=== PATIENT | female | born 1960 | race Caucasian/White ===

== ENCOUNTER 2016-05-09 16:53 | Emergency (ER) | payer SELFPAY ==
[~2016-05-09 16:53] MED LIST: ACET10DR4 OT; AMOX1TAB61 PO; BENZ100C PO; EZET1TAB4 PO; FURO20TA3 PO; GABA600T PO; HYDR-971 PO; METF500T4 PO; NORT25CA PO; NYST15CR2 TP; SULF1TAB3 PO; hydrocodone
--- NOTE | 2016-05-09 18:10 | PHYS DOC ---
Past Medical History Past Medical History: Asthma, Bronchitis, Diabetes-Type II Additional Past Medical Histor: CRONIC PAIN - BACK SURGERY 2003 Past Surgical History: Hysterectomy Additional Past Surgical Histo: ABDOMINAL HERNIA REPAIR, EYE SURGERY (CROSS- EYED), CARPAL TUNNEL RELEASE: R Alcohol Use: None Drug Use: None Adult General Chief Complaint Chief Complaint: MECHANICAL FALL HPI HPI Patient is a 56 year old female who presents with low back, right hip and right leg pain after fall. 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 Patient states she initially had low back and right hip pain. Fall occurred at 1345. Patient states approximately 2 hours prior to arrival pain started to increase in severity and radiates down the back of her right leg to her knee. She denies any history of past back hip or leg pain. Patient states past medical history is diabetes. Review of Systems Review of Systems Constitutional: Denies fever or chills Eyes: Denies change in visual acuity, redness, or eye pain HENT: Denies nasal congestion or sore throat Respiratory: Denies cough or shortness of breath Cardiovascular: No chest pain or palpitations GI: Denies abdominal pain, nausea, vomiting, bloody stools or diarrhea : Denies dysuria or hematuria Musculoskeletal: Lumbar back, right hip and right thigh pain Integument: Denies rash or skin lesions Neurologic: Denies headache, focal weakness or sensory changes Endocrine: Denies polyuria or polydipsia Current Medications Current Medications Current Medications Medications (Trade) Dose Ordered Sig/Dolly Start Time Stop Time Status Last Admin Dose Admin Ketorolac Tromethamine (Toradol) 30 mg 1X ONCE 05/09/16 18:15 05/09/16 18:16 DC 05/09/16 18:15 30 MG Allergies Allergies Allergies Coded Allergies Type Severity Reaction Last Updated Verified No Known Drug Allergies 03/16/13 No Physical Exam Physical Exam Constitutional: Well developed, well nourished, moderate acute distress, non- toxic appearance. HENT: Normocephalic, atraumatic, oropharynx moist, no oral exudates, nose normal. Eyes: PERRLA, EOMI, conjunctiva normal, no discharge. Neck: Normal range of motion, no tenderness, supple, no stridor. Cardiovascular:Heart rate regular rhythm, no murmur Lungs & Thorax: Bilateral breath sounds clear to auscultation Abdomen: Bowel sounds normal, soft, no tenderness, no masses, no pulsatile masses. Skin: Warm, dry, no erythema, no rash. Back: L2 through L4 midline spinous process tenderness with palpation, no CVA tenderness. Extremities: Right hip lateral tenderness, no cyanosis, no clubbing, ROM intact , no edema. Right lateral collateral ligament tenderness, Neurologic: Alert and oriented X 3, normal motor function, normal sensory function, no focal deficits noted. Psychologic: Affect normal, judgement normal, mood normal. Current Patient Data Vital Signs Vital Signs Date Time Temp Pulse Resp B/P Pulse Ox O2 Delivery O2 Flow Rate FiO2 05/09/16 19:14 61 18 136/79 97 Room Air 05/09/16 18:08 98.1 98.1 EKG EKG [] Radiology/Procedures Radiology/Procedures [] Impressions: X-rays of lumbar spine right hip and pelvis were interpreted by myself as being negative. Course & Med Decision Making Course & Med Decision Making Pertinent Labs and Imaging studies reviewed. (See chart for details) [] Dragon Disclaimer Dragon Disclaimer This electronic medical record was generated, in whole or in part, using a voice recognition dictation system. Departure Departure Impression: Primary Impression: Lumbar back pain with radiculopathy affecting right lower extremity Additional Impression: Sprain of lateral collateral ligament of right knee, initial encounter Disposition: 01 HOME, SELF-CARE Condition: IMPROVED Referrals: IVONE REED PA-C (PCP) Patient Instructions: Back Pain, Adult, [id number], Lateral Collateral Knee Ligament Sprain with Phase I Rehab-[facility] Scripts Hydrocodone/Acetaminophen (Lortab 5-325 mg Tablet)1 Each Tablet1 Tab PO PRN Q4- 6HRS PRN PAIN #20 TAB Ref 0 Prov:FRANCISCO JAVIER ZAMUDIO MD 05/09/16 Problem Qualifiers FRANCISCO JAVIER ZAMUDIO MD May 09, 2016 18:10
[2016-05-09] MEDS ORDERED: KETOROLAC TROMETHAMINE 30 MG/ML SYRINGE. IV ONE (18:15)
[2016-05-09] MEDS ORDERED: HYDR-2678 PO (18:55)
[2016-05-09 19:14] VITALS: BP 136/79
--- NOTE | 2016-05-10 13:14 | RAD ---
AP and lateral right hip radiographs to include an AP radiograph of the pelvis 05/09/2016 Clinical history: Right hip pain post fall. An AP digital radiograph of the pelvis to include both hips was obtained. AP and lateral digital radiographs of the right hip were obtained. No pelvic bone fracture is seen. Both hips are intact. Specifically no fracture or dislocation of the right hip is seen. Calcifications are seen within the pelvis consistent with phleboliths. Mild to moderate degenerative changes are seen involving the lower lumbar spine and both SI joints along with both hips. Impression: No acute fracture or dislocation of the right hip is seen.
--- NOTE | 2016-05-10 13:16 | RAD ---
Three-view lumbar spine radiographs 05/09/2016 Clinical history: Mid and low back pain after fall. AP and 2 lateral digital radiographs of the lumbar spine were obtained. There is diffuse osteopenia of the visualized bony structures. Very mild S-shaped curvature of the thoracolumbar spine is seen. No fracture or subluxation of the lumbar vertebrae is noted. Degenerative changes are seen involving the lower thoracic and throughout the lumbar disc spaces consisting of varying degrees of disc space narrowing, vertebral endplate sclerosis and minimal to mild anterior and posterior vertebral body osteophyte formation. Degenerative changes are seen involving the facet joints of the lower lumbar spine. Impression: No fracture or subluxation of the lumbar vertebrae is seen.
== END 2016-05-09 19:27 | disposition home or self-care (01) ==
LOC: ER 16:53
DX: S83.91XA Sprain of unspecified site of right knee, initial encounter (principal); M54.16 Radiculopathy, lumbar region; M25.551 Pain in right hip; E11.9 Type 2 diabetes mellitus without complications; J45.909 Unspecified asthma, uncomplicated; G89.29 Other chronic pain; W18.39XA Other fall on same level, initial encounter; Y93.F2 Activity, caregiving, lifting; Y92.89 Other specified places as the place of occurrence of the external cause; Y99.8 Other external cause status
CPT/HCPCS: 72100; 73502; 96374; 99284; J1885

== ENCOUNTER 2016-05-16 20:51 | Inpatient (IN) | payer SELFPAY ==
[~2016-05-16] VITALS: Ht 165.1 cm; Wt 110.8 kg
[~2016-05-16 20:51] MED LIST changes: +HYDR-2678 PO
[2016-05-16 21:56] LABS: OBC FLU VALID
[2016-05-16] MEDS ORDERED: IPRATRPIUM/ALBUTEROL 0.5/2.5MG 3 ML NEBU. NEB ONE (22:00)
[2016-05-16] MEDS ORDERED: methylPREDNISolone SOD SUCC PF 125 MG/2 ML VIAL. IV ONE (23:15)
--- NOTE | 2016-05-16 23:17 | PHYS DOC ---
Past Medical History Past Medical History: Asthma, Bronchitis, Diabetes-Type II, High Cholesterol Additional Past Medical Histor: CRONIC PAIN - BACK SURGERY 2003 Past Surgical History: Hysterectomy Additional Past Surgical Histo: ABDOMINAL HERNIA REPAIR, EYE SURGERY (CROSS- EYED), CARPAL TUNNEL RELEASE: R Smoking: Less than 1pk/day Alcohol Use: None Drug Use: None Adult General Chief Complaint Chief Complaint: FLU SYMPTOM HPI HPI Patient is a 56 year old female who presents with nonproductive cough and fever starting today. She's had a temperature up to 101.7F at home. She reports difficulty breathing. She has nasal congestion and sore throat. She's had posttussive emesis without nausea or abdominal pain. She states that she feels very tired and has slept most of the day today. She did not receive a flu shot this year. She denies any known sick contacts. She is a smoker. She has an inhaler at home but no nebulizer machine or home oxygen. She last took Tylenol at 1900. She sees a PCP at [facility]. Review of Systems Review of Systems Constitutional: Reports fever. Eyes: Denies change in visual acuity, redness, or eye pain. [] HENT: Denies ear pain. Reports nasal congestion and sore throat. Respiratory: Reports cough and shortness of breath. Cardiovascular: Denies chest pain, palpitations or edema. [] GI: Denies abdominal pain, nausea, bloody stools or diarrhea. Reports posttussive emesis. : Denies dysuria, hematuria or urinary frequency. [] Musculoskeletal: Denies back pain or joint pain. [] Integument: Denies rash or skin lesions. [] Neurologic: Denies headache, focal weakness or sensory changes. [] Endocrine: Denies polyuria or polydipsia. [] Psych: Denies anxiety or depression. [] All systems reviewed and negative unless otherwise stated in the HPI. Current Medications Current Medications Current Medications Medications (Trade) Dose Ordered Sig/Dolly Start Time Stop Time Status Last Admin Dose Admin Albuterol/ Ipratropium (Duoneb) 3 ml RTQID 05/17/16 08:00 05/18/16 07:59 Guaifenesin (Robitussin) 200 mg PRN Q4HRS PRN 05/16/16 23:00 Levofloxacin/ Dextrose (LEVAQUIN 500mg PREMIX) 100 ml @ 100 mls/hr 1X ONCE 05/16/16 23:15 05/17/16 00:14 Methylprednisolone Sodium Succinate 125 mg 125 mg 1X ONCE 05/16/16 23:15 05/16/16 23:16 Allergies Allergies Allergies Coded Allergies Type Severity Reaction Last Updated Verified No Known Drug Allergies 03/16/13 No Physical Exam Physical Exam Constitutional: Well developed, well nourished, no acute distress, non-toxic appearance. [] HENT: Normocephalic, atraumatic, bilateral external ears normal, oropharynx moist, no oral exudates, nose normal. Bilateral TMs without erythema or bulging. There is mild posterior pharyngeal erythema without tonsillar edema. Eyes: PERRLA, EOMI, conjunctiva normal, no discharge. [] Neck: Normal range of motion, no tenderness, supple, no stridor. [] Cardiovascular: Heart rate regular rhythm, no murmur [] Lungs & Thorax: No respiratory distress. There are expiratory wheezes heard throughout all lung loera. Skin: Warm, dry, no erythema, no rash. [] Neurologic: Alert and oriented X 3, normal motor function, normal sensory function, no focal deficits noted. [] Psychologic: Affect normal, judgement normal, mood normal. [] Current Patient Data Vital Signs Vital Signs Date Time Temp Pulse Resp B/P Pulse Ox O2 Delivery O2 Flow Rate FiO2 05/16/16 22:34 93 Nasal Cannula 2.5 05/16/16 21:19 100.6 97 22 100.6 Lab Values Laboratory Tests Test 05/16/16 21:15 Influenza Type A Antigen Negative (NEGATIVE) Influenza Type B Antigen Negative (NEGATIVE) EKG EKG [] Radiology/Procedures Radiology/Procedures PA and lateral chest x-ray reviewed and interpreted by myself with Dr. Armando. There is a right lower lobe infiltrate. Course & Med Decision Making Course & Med Decision Making Pertinent Labs and Imaging studies reviewed. (See chart for details) Patient presents with fever and cough starting today. On exam, she has wheezes in all lung loera without respiratory distress. Chest x-ray shows right lower lobe infiltrate. The patient's oxygen saturation drops to 88% on room air. She was started on oxygen via nasal cannula with improvement in her oxygen saturation. She received a DuoNeb treatment in the emergency department. She reported improved breathing, however her oxygen saturation remained 92% with oxygen after the treatment. She is admitted to the hospitalist for community acquired pneumonia by Dr. De with the hospitalist service. He requests nebulizers, Solu-Medrol, Levaquin, and Robitussin, as well as one set of blood cultures. Patient is in agreement with plan for hospital admission. She remained stable in the emergency department. Dragon Disclaimer Dragon Disclaimer This electronic medical record was generated, in whole or in part, using a voice recognition dictation system. Departure Departure Impression: Primary Impression: CAP (community acquired pneumonia) Disposition: 09 ADMITTED INPATIENT Admitting Physician: Wong De Referrals: UNKNOWN PCP NAME (PCP) ELYSE BAKER May 16, 2016 23:17
[2016-05-16 23:39] LABS: BASO % 1 % (0-3); EOS % 0 % (0-3); HEMATOCRIT 43.4 % (36.0-47.0); HEMOGLOBIN 14.3 g/dL (12.0-15.5); LYMPH # 1.4 x10^3/uL (1.0-4.8); LYMPH % 22 % (24-48); MEAN CORPUSCULAR HEMOGLOBIN 28 pg (25-35); MEAN CORPUSCULAR HGB CONC 33 g/dL (31-37); MEAN CORPUSCULAR VOLUME 84 fL (79-100); MONO % 11 % (0-9); NEUT % 66 % (31-73); PLATELET COUNT 157 x10^3/uL (140-400); RED BLOOD COUNT 5.17 x10^6/uL (3.50-5.40); RED CELL DISTRIBUTION WIDTH 13.8 % (11.5-14.5); WHITE BLOOD COUNT 6.3 x10^3/uL (4.0-11.0)
[2016-05-16 23:45] LABS: CALCIUM 9.4 mg/dL (8.5-10.1); GFR 57.1; POTASSIUM 3.8 mmol/L (3.5-5.1)
[2016-05-16 23:48] LABS: ALBUMIN 3.6 g/dL (3.4-5.0); ALBUMIN/GLOBULIN RATIO 0.8 (1.0-1.7); TOTAL BILIRUBIN 0.5 mg/dL (0.2-1.0); TOTAL PROTEIN 8.2 g/dL (6.4-8.2)
[2016-05-17] VITALS (7 sets, daily range): BP systolic 104–140; BP diastolic 53–76
[2016-05-17] MEDS ORDERED: CYCL10TA2 PO (01:08)
[2016-05-17] MEDS ORDERED: NAPR500T3 PO (01:08)
[2016-05-17] MEDS ORDERED: GLIP10TA13 PO (01:08)
[2016-05-17] MEDS ORDERED: IBUP-1007 PO (01:08)
[2016-05-17] MEDS ORDERED: HYDR25TA9 PO (01:08)
[2016-05-17] MEDS ORDERED: TRAZ50TA15 PO (01:08)
[2016-05-17] MEDS ORDERED: TRAM50TA PO (01:08)
[2016-05-17] MEDS ORDERED: INFLUENZA VAX SCREEN BY RX. MC ONE (01:15)
[2016-05-17] MEDS: IPRATRPIUM/ALBUTEROL 0.5/2.5MG 3 ML NEBU. NEB SCH ×4 (08:00→21:04)
--- NOTE | 2016-05-17 08:20 | RAD ---
Two view chest History:Cough, shortness of air, wheezing, flulike symptoms for one day . PA and lateral views of the chest are submitted. Comparison: 04/17/2016 Findings: There is no pleural effusion or pneumothorax. There is some subtle patchy right base airspace opacity. The pericardial cardiac silhouette is within normal limits in size. The trachea is in the midline. No acute osseous abnormality is identified. Impression: There is some subtle right base airspace opacity which may be due to infiltrate.
[2016-05-17] MEDS ORDERED: FLU VACC QUAD 2016-17 (36MOS+)/PF 0.5 ML SYRINGE. VAX IM ONE (09:00)
[2016-05-17] MEDS: GUAIFENESIN 200 MG/10 ML LIQUID. PO PRN ×3 (09:22→20:52)
[2016-05-17] MEDS ORDERED: IBUPROFEN 600 MG TABLET. PO PRN (11:15)
[2016-05-17] MEDS ORDERED: HYDROCODONE/APAP 5/325MG TABLET. PO PRN (11:15)
[2016-05-17] MEDS ORDERED: NAPROXEN 500 MG TABLET PO PRN (11:15)
[2016-05-17] MEDS ORDERED: TRAMADOL 50 MG TABLET. PO PRN (11:15)
[2016-05-17] MEDS: HYDROCHLOROTHIAZIDE 25 MG TABLET PO SCH (11:36)
[2016-05-17] MEDS: CYCLOBENZAPRINE 10 MG TABLET. PO SCH ×2 (11:36→20:42)
[2016-05-17] MEDS: BENZONATATE 100 MG CAPSULE. PO PRN ×2 (11:36→20:42)
[2016-05-17] MEDS: NYSTATIN/TRIAMCIN TOPICAL CREAM 15GM TUBE. TP SCH ×2 (11:37→20:46)
[2016-05-17] MEDS: HYDROCODONE/APAP 5/325MG TABLET. PO PRN ×2 (11:37→20:52)
[2016-05-17] MEDS: GLIPIZIDE 5 MG TABLET PO SCH (16:59)
[2016-05-17] MEDS: traZODone 50 MG TABLET. PO SCH (20:42)
[2016-05-17] MEDS: DEXAMETHASONE 0.1% OPHTH SOLUTION 5ML BOTTLE. AU SCH (20:46)
[2016-05-17] MEDS: CARBAMIDE PEROXIDE 6.5% OTIC SOLUTION 15ML BOTTLE. AU SCH (20:46)
[2016-05-17] MEDS ORDERED: AMOXICILLIN/K CLAV 875/125MG TABLET. PO SCH (21:00)
--- NOTE | 2016-05-17 21:13 | PDOC ---
Provider Note Provider Note [id number] acute resp fail abnl cxr acute bronchitis vs pneumonia ae of copd abx, steroid, /... LUIS F ABDI MD May 17, 2016 21:13
--- NOTE | 2016-05-17 21:41 | CONS ---
DATE OF CONSULTATION: 05/17/2016 REASON FOR CONSULTATION: I was asked to see this 56-year-old lady for acute respiratory failure, acute exacerbation of COPD and acute bronchitis versus pneumonia. HISTORY OF PRESENT ILLNESS: She has history of [id number] smoking, continues to smoke about half a pack per day. She started to have increased shortness of breath, cough, chest pain, wheezing, fever, vomiting. Yesterday, she has runny nose and nasal congestion. She does snore. She has excessive daytime sleepiness. PAST MEDICAL HISTORY: Asthma, COPD, diabetes mellitus, hypercholesterolemia. ALLERGIES: No known drug allergies. MEDICATIONS: Currently, she is on albuterol, Atrovent nebulizer, one dose of Levaquin was given, Debrox, Glucotrol, hydrochlorothiazide, tramadol, ibuprofen. SOCIAL HISTORY: History of [id number] smoking, continues to smoke about half a pack per day. FAMILY HISTORY: There is no history of lung disease. REVIEW OF SYSTEMS: Mentioned as above, other systems are otherwise negative. PHYSICAL EXAMINATION: GENERAL: This is an overweight lady. VITAL SIGNS: Her O2 saturation on 2 liters of oxygen is 93%, respiratory rate 20, heart rate 76, blood pressure 115/53, temperature 98.6. HEENT: Normocephalic, atraumatic. Pupils equal, round, reactive to light. Throat: There is shallow oropharynx. Nose: There is inflamed mucosa. NECK: There is no JVD, lymphadenopathy or thyromegaly. CARDIOVASCULAR: Regular rate and rhythm. PMI is nondisplaced. CHEST: Inspection is normal. LUNGS: There are bibasilar crackles and expiratory wheezing. ABDOMEN: Soft and obese. Bowel sounds are good. There is no mass. EXTREMITIES: There is edema. LYMPHATICS: There is no lymphadenopathy. NEUROLOGIC: Alert and oriented x 3. SKIN: Chronic changes. LABORATORY DATA: I reviewed the following lab data: Chest x-ray shows right lower lobe opacity, ? infiltrate. Sodium 135, potassium 3.8, chloride 98, CO2 24, glucose 112, BUN 14, creatinine 1. Total bilirubin 0.5, AST 59, ALT 37, alk phos 84. BNP 205. Influenza A and B negative. WBC 6.3, hemoglobin 14.3, platelet 157. IMPRESSION: 1. Acute respiratory failure, multifactorial in etiology. 2. Abnormal chest x-ray. 3. Acute exacerbation of COPD. 4. Acute bronchitis versus pneumonia. 5. Smoker. 6. Diabetes mellitus. 7. Hypercholesterolemia. 8. Obesity, snoring and excessive daytime sleepiness, probable obstructive sleep apnea-hypopnea syndrome. PLAN AND RECOMMENDATIONS: 1. Titrate FiO2 to keep O2 saturation 92%. 2. Bronchodilator. 3. Add inhaled corticosteroid. 4. Add Solu-Medrol 40 mg IV every 12. Monitor blood glucose very closely. 5. Levaquin 500 mg IV daily. 6. Legionella and Strep pneumoniae antigen. 7. Lovenox for DVT prophylaxis. 8. Protonix for stress ulcer prophylaxis. 9. Monitor respiratory status very closely. 10. I had a long discussion with her regarding smoking cessation. I have advised her to stop smoking forever. 11. I have discussed obstructive sleep apnea-hypopnea syndrome, the importance of diagnosis and treatment. 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 I do recommend a split night sleep study as an outpatient. 12. The findings and recommendations were discussed with the patient. She understood and agreed to proceed with the plan. I have answered all of her questions. Thank you very much for allowing me to participate in care of this very nice lady. LUIS F ABDI M.D. : COLT/mervat JOB#: [id number] / [id number] KALEB
[2016-05-17] MEDS: ENOXAPARIN 40 MG/0.4 ML DISP.SYRIN. SQ SCH (21:45)
[2016-05-18 03:27] VITALS: BP 122/70
--- NOTE | 2016-05-18 05:06 | HP ---
ADMIT DATE: 05/17/2016 CHIEF COMPLAINT: Shortness of breath, cough, flu symptoms. HISTORY OF PRESENT ILLNESS: The patient is a pleasant middle-aged female who continues to smoke. She presented to the ER with flu-like symptoms with cough, shortness of breath. Her flu screen was negative, but her chest x-ray showed a right-sided infiltrate. She has now been admitted with respiratory failure and pneumonia. PAST MEDICAL HISTORY: COPD, tobacco abuse, bronchitis, asthma, chronic back pain, hyperlipidemia, diabetes, hernia repair, eye surgery, carpal tunnel surgery, hysterectomy. ALLERGIES: None. FAMILY HISTORY: Diabetes. SOCIAL HISTORY: She does not drink, smoke or take drugs. MEDICATIONS: Reviewed, please refer to the MRAD. REVIEW OF SYSTEMS: GENERAL: No history of weight change, weakness or fevers. SKIN: No bruising, hair changes or rashes. EYES: No blurred, double or loss of vision. NOSE AND THROAT: No history of nosebleeds, hoarseness or sore throat. HEART: No history of palpitations, chest pain or shortness of breath on exertion. LUNGS: She complains of shortness of breath and cough. GASTROINTESTINAL: Denies changes in appetite, nausea, vomiting, diarrhea or constipation. GENITOURINARY: No history of frequency, urgency, hesitancy or nocturia. NEUROLOGIC: Denies history of numbness, tingling, tremor or weakness. PSYCHIATRIC: No history of panic, anxiety or depression. ENDOCRINE: No history of heat or cold intolerance, polyuria or polydipsia. EXTREMITIES: Denies muscle weakness, joint pain, pain on walking or stiffness. PHYSICAL EXAMINATION: VITAL SIGNS: Temperature afebrile, pulse 92, respirations 18, blood pressure 123/71, O2 sat 94% on 2 liters. GENERAL: She is alert, cooperative, pleasant. HEART: Normal S1, S2. LUNGS: Diminished with crackles. ABDOMEN: Soft, positive bowel sounds. EXTREMITIES: Trace edema. SKIN: No rashes. PSYCHIATRIC: She seems a little depressed. VASCULAR: Good capillary refill. ENDOCRINE: No thyromegaly. LYMPHATICS: No cervical nodes. HEMATOPOIETIC: No bruising. LABORATORY DATA: Hematology normal. Electrolytes sodium was 135. Chest x-ray shows pneumonia. ASSESSMENT AND PLAN: Pneumonia, tobacco abuse and hyponatremia. The patient has been admitted. We will start IV fluids, IV steroids, breathing treatments, oxygen, IV antibiotics. Consult Pulmonary Medicine. Resume home medicines. MELITON CAST DO DR: DAO/mervat JOB#: [id number] / [id number]
[2016-05-18 06:25] LABS: BASO % 1 % (0-3); EOS % 1 % (0-3); HEMATOCRIT 42.9 % (36.0-47.0); HEMOGLOBIN 14.4 g/dL (12.0-15.5); LYMPH # 2.4 x10^3/uL (1.0-4.8); LYMPH % 39 % (24-48); MEAN CORPUSCULAR HEMOGLOBIN 28 pg (25-35); MEAN CORPUSCULAR HGB CONC 34 g/dL (31-37); MEAN CORPUSCULAR VOLUME 82 fL (79-100); MONO % 9 % (0-9); NEUT % 50 % (31-73); PLATELET COUNT 160 x10^3/uL (140-400); RED BLOOD COUNT 5.21 x10^6/uL (3.50-5.40); RED CELL DISTRIBUTION WIDTH 14.3 % (11.5-14.5); WHITE BLOOD COUNT 6.2 x10^3/uL (4.0-11.0)
[2016-05-18 06:53] LABS: CALCIUM 9.1 mg/dL (8.5-10.1); CREATININE 0.9 mg/dL (0.6-1.0); GFR 64.5; POTASSIUM 3.6 mmol/L (3.5-5.1)
[2016-05-18] MEDS: IPRATRPIUM/ALBUTEROL 0.5/2.5MG 3 ML NEBU. NEB SCH (06:54)
[2016-05-18] MEDS: BUDESONIDE 0.5 MG/2 ML NEBU NEB SCH ×2 (06:54→18:14)
[2016-05-18 07:30] VITALS: BP 93/60
[2016-05-18] MEDS: PANTOPRAZOLE 40 MG TABLET. PO SCH (08:36)
[2016-05-18] MEDS: GLIPIZIDE 5 MG TABLET PO SCH ×2 (08:36→17:01)
[2016-05-18] MEDS: GUAIFENESIN 200 MG/10 ML LIQUID. PO PRN ×2 (08:36→13:49)
[2016-05-18] MEDS: BENZONATATE 100 MG CAPSULE. PO PRN ×2 (08:36→13:49)
[2016-05-18] MEDS: HYDROCODONE/APAP 5/325MG TABLET. PO PRN ×3 (08:36→21:43)
[2016-05-18] MEDS: HYDROCHLOROTHIAZIDE 25 MG TABLET PO SCH (08:37)
[2016-05-18] MEDS: CYCLOBENZAPRINE 10 MG TABLET. PO SCH ×2 (08:37→21:43)
[2016-05-18] MEDS: CARBAMIDE PEROXIDE 6.5% OTIC SOLUTION 15ML BOTTLE. AU SCH ×2 (08:39→21:00)
[2016-05-18] MEDS: DEXAMETHASONE 0.1% OPHTH SOLUTION 5ML BOTTLE. AU SCH ×2 (08:39→21:00)
[2016-05-18] MEDS: NYSTATIN/TRIAMCIN TOPICAL CREAM 15GM TUBE. TP SCH ×2 (08:39→21:00)
[2016-05-18] MEDS: methylPREDNISolone SOD SUCC PF 40 MG/ML VIAL. IV SCH ×2 (09:06→21:43)
--- NOTE | 2016-05-18 09:46 | PDOC ---
PULMONARY PROGRESS NOTES Subjective has sob, cough, feels tired, has nasal congestion Vitals Vital Signs Date Time Temp Pulse Resp B/P Pulse Ox O2 Delivery O2 Flow Rate FiO2 05/18/16 08:36 16 94 Nasal Cannula 2.0 05/18/16 07:30 97.9 67 93/60 97.9 Comments ros, as mention as above, no pain, other sys otherwise neg General: Oriented X4 HEENT: Other (nc at perrl, shallow oropharynx) Lungs: Wheezing Cardiovascular: S1, S2 Abdomen: Soft, Non-tender Neuro Exam: Alert, Oriented Extremities: No Edema Skin: Warm Labs Laboratory Tests Test 05/16/16 21:15 05/16/16 23:07 05/16/16 23:28 05/18/16 05:42 Influenza Type A Antigen Negative (NEGATIVE) Influenza Type B Antigen Negative (NEGATIVE) Sodium Level 135mmol/L (136-145) 140mmol/L (136-145) Potassium Level 3.8mmol/L (3.5-5.1) 3.6mmol/L (3.5-5.1) Chloride Level 98mmol/L (98-107) 104mmol/L (98-107) Carbon Dioxide Level 24mmol/L (21-32) 28mmol/L (21-32) Anion Gap 13 (6-14) 8 (6-14) Blood Urea Nitrogen 14mg/dL (7-20) 18mg/dL (7-20) Creatinine 1.0mg/dL (0.6-1.0) 0.9mg/dL (0.6-1.0) Estimated GFR (Cockcroft-Gault) 57.1 64.5 BUN/Creatinine Ratio 14 (6-20) Glucose Level 112mg/dL (70-99) 83mg/dL (70-99) Calcium Level 9.4mg/dL (8.5-10.1) 9.1mg/dL (8.5-10.1) Total Bilirubin 0.5mg/dL (0.2-1.0) Aspartate Amino Transf (AST/SGOT) 59U/L (15-37) Alanine Aminotransferase (ALT/SGPT) 37U/L (14-59) Alkaline Phosphatase 84U/L (46-116) OK-Inp-G-Type Natriuretic Peptide 205pg/mL (0-124) Total Protein 8.2g/dL (6.4-8.2) Albumin 3.6g/dL (3.4-5.0) Albumin/Globulin Ratio 0.8 (1.0-1.7) White Blood Count 6.3x10^3/uL (4.0-11.0) 6.2x10^3/uL (4.0-11.0) Red Blood Count 5.17x10^6/uL (3.50-5.40) 5.21x10^6/uL (3.50-5.40) Hemoglobin 14.3g/dL (12.0-15.5) 14.4g/dL (12.0-15.5) Hematocrit 43.4% (36.0-47.0) 42.9% (36.0-47.0) Mean Corpuscular Volume 84fL (79-100) 82fL (79-100) Mean Corpuscular Hemoglobin 28pg (25-35) 28pg (25-35) Mean Corpuscular Hemoglobin Concent 33g/dL (31-37) 34g/dL (31-37) Red Cell Distribution Width 13.8% (11.5-14.5) 14.3% (11.5-14.5) Platelet Count 157x10^3/uL (140-400) 160x10^3/uL (140-400) Neutrophils (%) (Auto) 66% (31-73) 50% (31-73) Lymphocytes (%) (Auto) 22% (24-48) 39% (24-48) Monocytes (%) (Auto) 11% (0-9) 9% (0-9) Eosinophils (%) (Auto) 0% (0-3) 1% (0-3) Basophils (%) (Auto) 1% (0-3) 1% (0-3) Neutrophils # (Auto) 4.1x10^3uL (1.8-7.7) 3.1x10^3uL (1.8-7.7) Lymphocytes # (Auto) 1.4x10^3/uL (1.0-4.8) 2.4x10^3/uL (1.0-4.8) Monocytes # (Auto) 0.7x10^3/uL (0.0-1.1) 0.5x10^3/uL (0.0-1.1) Eosinophils # (Auto) 0.0x10^3/uL (0.0-0.7) 0.1x10^3/uL (0.0-0.7) Basophils # (Auto) 0.0x10^3/uL (0.0-0.2) 0.0x10^3/uL (0.0-0.2) Laboratory Tests Test 05/18/16 05:42 White Blood Count 6.2x10^3/uL (4.0-11.0) Red Blood Count 5.21x10^6/uL (3.50-5.40) Hemoglobin 14.4g/dL (12.0-15.5) Hematocrit 42.9% (36.0-47.0) Mean Corpuscular Volume 82fL (79-100) Mean Corpuscular Hemoglobin 28pg (25-35) Mean Corpuscular Hemoglobin Concent 34g/dL (31-37) Red Cell Distribution Width 14.3% (11.5-14.5) Platelet Count 160x10^3/uL (140-400) Neutrophils (%) (Auto) 50% (31-73) Lymphocytes (%) (Auto) 39% (24-48) Monocytes (%) (Auto) 9% (0-9) Eosinophils (%) (Auto) 1% (0-3) Basophils (%) (Auto) 1% (0-3) Neutrophils # (Auto) 3.1x10^3uL (1.8-7.7) Lymphocytes # (Auto) 2.4x10^3/uL (1.0-4.8) Monocytes # (Auto) 0.5x10^3/uL (0.0-1.1) Eosinophils # (Auto) 0.1x10^3/uL (0.0-0.7) Basophils # (Auto) 0.0x10^3/uL (0.0-0.2) Sodium Level 140mmol/L (136-145) Potassium Level 3.6mmol/L (3.5-5.1) Chloride Level 104mmol/L (98-107) Carbon Dioxide Level 28mmol/L (21-32) Anion Gap 8 (6-14) Blood Urea Nitrogen 18mg/dL (7-20) Creatinine 0.9mg/dL (0.6-1.0) Estimated GFR (Cockcroft-Gault) 64.5 Glucose Level 83mg/dL (70-99) Calcium Level 9.1mg/dL (8.5-10.1) Medications Active Scripts Medications Dose Route/Sig Days Date Category Ibuprofen 600 Mg Tablet 600 Mg PO PRN TID PRN 05/17/16 Reported Tramadol Hcl 50 Mg Tablet 1 Tab PO PRN Q4-6HRS PRN 05/17/16 Reported Trazodone Hcl 50 Mg Tablet 1 Tab PO QHS 05/17/16 Reported Naproxen 500 Mg Tablet 1 Tab PO BID PRN 05/17/16 Reported Glipizide 10 Mg Tablet 1 Tab PO DAILY 05/17/16 Reported Cyclobenzaprine Hcl 10 Mg Tablet 1 Tab PO BID 05/17/16 Reported Hydrochlorothiazide Tablet (Hydrochlorothiazide) 25 Mg Tablet 25 Mg PO DAILY 05/17/16 Reported Lortab 5-325 mg Tablet (Hydrocodone/Acetaminophen) 1 Each Tablet 1 Tab PO PRN Q4-6HRS PRN 05/09/16 Rx Tessalon Perle (Benzonatate) 100 Mg Capsule 100 Mg PO TID PRN 04/17/16 Rx Hydrocortison-Acetic Acid Soln (Acetic Acid/Hydrocortisone) 10 Ml Drops 10 Ml OT BID 04/17/16 Rx Augmentin 875-125 Tablet (Amoxicillin/Potassium Clav) 1 Each Tablet 1 Tab PO BID 04/17/16 Rx Nystatin-Triamcinolone Cream (Nystatin/Triamcin) 15 Gm Cream..g. 1 Sammy TP BID 02/24/16 Rx [place] 5-325 Tablet (Acetaminophen/Hydrocodone Bitart) 1 Each Tablet 1 Tab PO PRN Q6HRS PRN 02/24/16 Rx Metformin Hcl 500 Mg Tablet 500 Mg PO BID 03/16/13 Reported Comments cxr reviewed, There is some subtle right base airspace opacity which may be due to infiltrate. Impression . IMPRESSION: 1. Acute respiratory failure, multifactorial in etiology. 2. Abnormal chest x-ray. 3. Acute exacerbation of COPD. 4. Acute bronchitis versus pneumonia. 5. Smoker. 6. Diabetes mellitus. 7. Hypercholesterolemia. 8. Obesity, snoring and excessive daytime sleepiness, probable obstructive sleep apnea-hypopnea syndrome. 9. allergic rhinitis Plan . PLAN AND RECOMMENDATIONS: 1. Titrate FiO2 to keep O2 saturation 92%. 2. Bronchodilator. 3. inhaled corticosteroid. 4. Solu-Medrol 40 mg IV every 12. no change. Monitor blood glucose very closely. 5. Levaquin 500 mg IV daily. 6. fu Legionella and Strep pneumoniae antigen. 7. Lovenox for DVT prophylaxis. 8. Protonix for stress ulcer prophylaxis. 9. Monitor respiratory status very closely. 10. I had a long discussion with her regarding smoking cessation. I have advised her to stop smoking forever. 11. I have discussed obstructive sleep apnea-hypopnea syndrome, the importance of diagnosis and treatment. 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 I did recommend a split night sleep study as an outpatient. 12. add singallisonir The findings and recommendations were discussed with the patient. She understood and agreed to proceed with the plan. I have answered all of her questions. LUIS F ABDI MD May 18, 2016 09:46
[2016-05-18 11:39] VITALS: BP 140/54
--- NOTE | 2016-05-18 13:54 | PDOC ---
PROGRESS NOTES Chief Complaint Chief Complaint CC: SOB, cough, flu symptoms 1. COPD 2. Tobacco use 3. Bronchitis 4. Asthma 5. Chronic back pain 6. Hyperlipidemia 7. Diabetes 8. Hernia repair 9. Eye surgery 10. Carpal tunnel surgery 11. Hysterectomy History of Present Illness History of Present Illness Pt lying in bed Pt expressed that she would like to restart Metformin Possible D/C tomorrow if OK with Pulmonology VSS DW RN Vitals Vitals Vital Signs Date Time Temp Pulse Resp B/P Pulse Ox O2 Delivery O2 Flow Rate FiO2 05/18/16 11:39 97.7 81 17 140/54 92 Nasal Cannula 2.0 97.7 Physical Exam General: Alert, Oriented X3 Heart: Regular rate, No murmurs Lungs: Wheezing, Other (Coarse breath sounds) Abdomen: Soft, No tenderness Extremities: No clubbing, No cyanosis Skin: No rashes, No breakdown Labs LABS Laboratory Tests Test 05/18/16 05:42 White Blood Count 6.2x10^3/uL (4.0-11.0) Red Blood Count 5.21x10^6/uL (3.50-5.40) Hemoglobin 14.4g/dL (12.0-15.5) Hematocrit 42.9% (36.0-47.0) Mean Corpuscular Volume 82fL (79-100) Mean Corpuscular Hemoglobin 28pg (25-35) Mean Corpuscular Hemoglobin Concent 34g/dL (31-37) Red Cell Distribution Width 14.3% (11.5-14.5) Platelet Count 160x10^3/uL (140-400) Neutrophils (%) (Auto) 50% (31-73) Lymphocytes (%) (Auto) 39% (24-48) Monocytes (%) (Auto) 9% (0-9) Eosinophils (%) (Auto) 1% (0-3) Basophils (%) (Auto) 1% (0-3) Neutrophils # (Auto) 3.1x10^3uL (1.8-7.7) Lymphocytes # (Auto) 2.4x10^3/uL (1.0-4.8) Monocytes # (Auto) 0.5x10^3/uL (0.0-1.1) Eosinophils # (Auto) 0.1x10^3/uL (0.0-0.7) Basophils # (Auto) 0.0x10^3/uL (0.0-0.2) Sodium Level 140mmol/L (136-145) Potassium Level 3.6mmol/L (3.5-5.1) Chloride Level 104mmol/L (98-107) Carbon Dioxide Level 28mmol/L (21-32) Anion Gap 8 (6-14) Blood Urea Nitrogen 18mg/dL (7-20) Creatinine 0.9mg/dL (0.6-1.0) Estimated GFR (Cockcroft-Gault) 64.5 Glucose Level 83mg/dL (70-99) Calcium Level 9.1mg/dL (8.5-10.1) Review of Systems Review of Systems Complains of SOA Complains of cough Assessment and Plan Assessmemt and Plan Problems Medical Problems: (1) CAP (community acquired pneumonia) Status: Acute Assessment: CC: SOB, cough, flu symptoms 1. COPD 2. Tobacco use 3. Bronchitis 4. Asthma 5. Chronic back pain 6. Hyperlipidemia 7. Diabetes 8. Hernia repair 9. Eye surgery 10. Carpal tunnel surgery 11. Hysterectomy Plan: Pulm has been consulted - Monitor respiratory status closely, Will follow recommendations Possible D/C tomorrow if OK with Pulmonology Continue IV fluids Continue steroids Breathing treatments O2 Continue IV Levaquin Restart Metformin Appreciate the input from subspecialty Problems: Comment Review of Relevant I have reviewed the following items chasity (where applicable) has been applied. Labs Laboratory Tests Test 05/16/16 21:15 05/16/16 23:07 05/16/16 23:28 05/18/16 05:42 Influenza Type A Antigen Negative (NEGATIVE) Influenza Type B Antigen Negative (NEGATIVE) Sodium Level 135mmol/L (136-145) 140mmol/L (136-145) Potassium Level 3.8mmol/L (3.5-5.1) 3.6mmol/L (3.5-5.1) Chloride Level 98mmol/L (98-107) 104mmol/L (98-107) Carbon Dioxide Level 24mmol/L (21-32) 28mmol/L (21-32) Anion Gap 13 (6-14) 8 (6-14) Blood Urea Nitrogen 14mg/dL (7-20) 18mg/dL (7-20) Creatinine 1.0mg/dL (0.6-1.0) 0.9mg/dL (0.6-1.0) Estimated GFR (Cockcroft-Gault) 57.1 64.5 BUN/Creatinine Ratio 14 (6-20) Glucose Level 112mg/dL (70-99) 83mg/dL (70-99) Calcium Level 9.4mg/dL (8.5-10.1) 9.1mg/dL (8.5-10.1) Total Bilirubin 0.5mg/dL (0.2-1.0) Aspartate Amino Transf (AST/SGOT) 59U/L (15-37) Alanine Aminotransferase (ALT/SGPT) 37U/L (14-59) Alkaline Phosphatase 84U/L (46-116) TV-Ecm-L-Type Natriuretic Peptide 205pg/mL (0-124) Total Protein 8.2g/dL (6.4-8.2) Albumin 3.6g/dL (3.4-5.0) Albumin/Globulin Ratio 0.8 (1.0-1.7) White Blood Count 6.3x10^3/uL (4.0-11.0) 6.2x10^3/uL (4.0-11.0) Red Blood Count 5.17x10^6/uL (3.50-5.40) 5.21x10^6/uL (3.50-5.40) Hemoglobin 14.3g/dL (12.0-15.5) 14.4g/dL (12.0-15.5) Hematocrit 43.4% (36.0-47.0) 42.9% (36.0-47.0) Mean Corpuscular Volume 84fL (79-100) 82fL (79-100) Mean Corpuscular Hemoglobin 28pg (25-35) 28pg (25-35) Mean Corpuscular Hemoglobin Concent 33g/dL (31-37) 34g/dL (31-37) Red Cell Distribution Width 13.8% (11.5-14.5) 14.3% (11.5-14.5) Platelet Count 157x10^3/uL (140-400) 160x10^3/uL (140-400) Neutrophils (%) (Auto) 66% (31-73) 50% (31-73) Lymphocytes (%) (Auto) 22% (24-48) 39% (24-48) Monocytes (%) (Auto) 11% (0-9) 9% (0-9) Eosinophils (%) (Auto) 0% (0-3) 1% (0-3) Basophils (%) (Auto) 1% (0-3) 1% (0-3) Neutrophils # (Auto) 4.1x10^3uL (1.8-7.7) 3.1x10^3uL (1.8-7.7) Lymphocytes # (Auto) 1.4x10^3/uL (1.0-4.8) 2.4x10^3/uL (1.0-4.8) Monocytes # (Auto) 0.7x10^3/uL (0.0-1.1) 0.5x10^3/uL (0.0-1.1) Eosinophils # (Auto) 0.0x10^3/uL (0.0-0.7) 0.1x10^3/uL (0.0-0.7) Basophils # (Auto) 0.0x10^3/uL (0.0-0.2) 0.0x10^3/uL (0.0-0.2) Laboratory Tests Test 05/18/16 05:42 White Blood Count 6.2x10^3/uL (4.0-11.0) Red Blood Count 5.21x10^6/uL (3.50-5.40) Hemoglobin 14.4g/dL (12.0-15.5) Hematocrit 42.9% (36.0-47.0) Mean Corpuscular Volume 82fL (79-100) Mean Corpuscular Hemoglobin 28pg (25-35) Mean Corpuscular Hemoglobin Concent 34g/dL (31-37) Red Cell Distribution Width 14.3% (11.5-14.5) Platelet Count 160x10^3/uL (140-400) Neutrophils (%) (Auto) 50% (31-73) Lymphocytes (%) (Auto) 39% (24-48) Monocytes (%) (Auto) 9% (0-9) Eosinophils (%) (Auto) 1% (0-3) Basophils (%) (Auto) 1% (0-3) Neutrophils # (Auto) 3.1x10^3uL (1.8-7.7) Lymphocytes # (Auto) 2.4x10^3/uL (1.0-4.8) Monocytes # (Auto) 0.5x10^3/uL (0.0-1.1) Eosinophils # (Auto) 0.1x10^3/uL (0.0-0.7) Basophils # (Auto) 0.0x10^3/uL (0.0-0.2) Sodium Level 140mmol/L (136-145) Potassium Level 3.6mmol/L (3.5-5.1) Chloride Level 104mmol/L (98-107) Carbon Dioxide Level 28mmol/L (21-32) Anion Gap 8 (6-14) Blood Urea Nitrogen 18mg/dL (7-20) Creatinine 0.9mg/dL (0.6-1.0) Estimated GFR (Cockcroft-Gault) 64.5 Glucose Level 83mg/dL (70-99) Calcium Level 9.1mg/dL (8.5-10.1) Microbiology 05/16/16 Blood Culture - Preliminary, Resulted NO GROWTH AFTER 1 DAY Medications Current Medications Albuterol/ Ipratropium (Duoneb) 3 ml 1X ONCE NEB Last administered on 22:30; Start 05/16/16 at 22:00; Stop 05/16/16 at 22:01; Status DC Albuterol/ Ipratropium (Duoneb) 3 ml RTQID NEB Last administered on 05/18/16 06:54; Start 05/17/16 at 08:00; Stop 05/18/16 at 07:59; Status DC Guaifenesin (Robitussin) 200 mg PRN Q4HRS PRN PO COUGH Last administered on 08:36; Start 05/16/16 at 23:00 Methylprednisolone Sodium Succinate 125 mg 125 mg 1X ONCE IV Last administered on 05/16/16 23:37; Start 05/16/16 at 23:15; Stop 05/16/16 at 23:16 ; Status DC Levofloxacin/ Dextrose (LEVAQUIN 500mg PREMIX) 100 ml @ 100 mls/hr 1X ONCE IV Last administered on 05/16/16 23:40; Start 05/16/16 at 23:15; Stop 05/17/16 at 00:14; Status DC Info (Do NOT chart on this placeholder) 1 each 1X ONCE MC ; Start 05/17/16 at 01:15; Stop 05/17/16 at 01:16; Status UNV Influenza Virus Vaccine Quadrival (Fluarix Quad 1381-7993 Syringe) 0.5 ml ONCE ONCE VAX IM Last administered on 05/17/16 09:26; Start 05/17/16 at 09:00; Stop 05/17/16 at 09:01; Status DC Amoxicillin/ Clavulanate Potassium (Augmentin 875/ 125mg) 1 tab BID PO ; Start 05/17/16 at 21:00; Stop 05/17/16 at 21:00; Status DC Benzonatate (Tessalon Perle) 100 mg TID PRN PO COUGH Last administered on 08:36; Start 05/17/16 at 11:15 Cyclobenzaprine HCl (Flexeril) 10 mg BID PO Last administered on 05/18/16 08: 37; Start 05/17/16 at 12:00 Hydrochlorothiazide (Hydrodiuril) 25 mg DAILY PO Last administered on 08:37; Start 05/17/16 at 12:00 Acetaminophen/ Hydrocodone Bitart (Lortab 5/325) 1 tab QIDPRN PRN PO SEVERE PAIN Last administered on 05/18/16 08:36; Start 05/17/16 at 11:15 Acetaminophen/ Hydrocodone Bitart (Lortab 5/325) 1 tab PRN Q6HRS PRN PO PAIN; Start 05/17/16 at 11:15; Status UNV Ibuprofen (Motrin) 600 mg PRN TID PRN PO INFLAMMATION/PAIN; Start 05/17/16 at 11:15 Naproxen (Naprosyn) 500 mg BID PRN PO PAIN; Start 05/17/16 at 11:15; Status UNV Nystatin/ Triamcinolone Acetonide (Mycolog Ii) 1 sammy BID TP ; Start 05/17/16 at 12:00 Tramadol HCl (Ultram) 50 mg QIDPRN PRN PO MODERATE PAIN; Start 05/17/16 at 11: 15 Trazodone HCl (Desyrel) 50 mg QHS PO Last administered on 05/17/16 20:42; Start 05/17/16 at 21:00 Carbamide Peroxide (Debrox) 1 drop BID AU ; Start 05/17/16 at 21:00 Glipizide (Glucotrol) 10 mg BIDBFRMEAL PO Last administered on 05/18/16 08:36 ; Start 05/17/16 at 16:30 Dexamethasone (Maxidex) 1 drop BID AU ; Start 05/17/16 at 21:00 Budesonide (Pulmicort) 0.5 mg RTBID NEB Last administered on 05/18/16 06:54; Start 05/18/16 at 08:00 Methylprednisolone Sodium Succinate 40 mg 40 mg Q12HR IV Last administered on 09:06; Start 05/18/16 at 09:00 Levofloxacin/ Dextrose (LEVAQUIN 500mg PREMIX) 100 ml @ 100 mls/hr Q24H IV Last administered on 05/17/16 21:45; Start 05/17/16 at 21:30 Enoxaparin Sodium (Lovenox 40mg Syringe) 40 mg Q24H SQ Last administered on 21:45; Start 05/17/16 at 21:30 Pantoprazole Sodium (Protonix) 40 mg DAILYAC PO Last administered on 05/18/16 08:36; Start 05/18/16 at 07:30 Montelukast Sodium (Singulair) 10 mg QHS PO ; Start 05/18/16 at 21:00 Active Scripts Active Lortab 5-325 mg Tablet (Hydrocodone/Acetaminophen) 1 Each Tablet 1 Tab PO PRN Q4 -6HRS PRN Tessalon Perle (Benzonatate) 100 Mg Capsule 100 Mg PO TID PRN Hydrocortison-Acetic Acid Soln (Acetic Acid/Hydrocortisone) 10 Ml Drops 10 Ml OT BID Augmentin 875-125 Tablet (Amoxicillin/Potassium Clav) 1 Each Tablet 1 Tab PO BID Nystatin-Triamcinolone Cream (Nystatin/Triamcin) 15 Gm Cream..g. 1 Sammy TP BID [place] 5-325 Tablet (Acetaminophen/Hydrocodone Bitart) 1 Each Tablet 1 Tab PO PRN Q6HRS PRN Reported Ibuprofen 600 Mg Tablet 600 Mg PO PRN TID PRN Tramadol Hcl 50 Mg Tablet 1 Tab PO PRN Q4-6HRS PRN Trazodone Hcl 50 Mg Tablet 1 Tab PO QHS Naproxen 500 Mg Tablet 1 Tab PO BID PRN Glipizide 10 Mg Tablet 1 Tab PO DAILY Cyclobenzaprine Hcl 10 Mg Tablet 1 Tab PO BID Hydrochlorothiazide Tablet (Hydrochlorothiazide) 25 Mg Tablet 25 Mg PO DAILY Metformin Hcl 500 Mg Tablet 500 Mg PO BID Vitals/I & O Vital Sign - Last 24 Hours 05/17/16 05/17/16 05/17/16 05/17/16 13:51 15:30 19:33 20:00 Temp 97.9 98.6 97.9 98.6 Pulse 75 76 Resp 20 20 B/P 104/57 115/53 Pulse Ox 96 94 94 O2 Delivery Nasal Cannula Nasal Cannula Nasal Cannula Nasal Cannula O2 Flow Rate 2.5 2.0 2.0 05/17/16 05/17/16 05/17/16 05/18/16 20:52 21:05 23:16 03:27 Temp 98.8 98.1 98.8 98.1 Pulse 76 66 Resp 16 16 B/P 128/73 122/70 Pulse Ox 94 91 92 92 O2 Delivery Nasal Cannula Nasal Cannula Room Air Nasal Cannula O2 Flow Rate 2.0 2.0 2.0 05/18/16 05/18/16 05/18/16 05/18/16 06:55 07:30 08:00 08:36 Temp 97.9 97.9 Pulse 67 Resp 16 B/P 93/60 Pulse Ox 97 94 94 O2 Delivery Nasal Cannula Nasal Cannula Nasal Cannula Nasal Cannula O2 Flow Rate 3.0 2.0 2.0 2.0 05/18/16 05/18/16 09:36 11:39 Temp 97.7 97.7 Pulse 81 Resp 18 17 B/P 140/54 Pulse Ox 94 92 O2 Delivery Nasal Cannula Nasal Cannula O2 Flow Rate 2.0 2.0 Intake and Output 05/17/16 05/17/16 05/18/16 15:00 23:00 07:00 Intake Total 840 ml Output Total 400 ml Balance 440 ml MELITON CAST III DO May 18, 2016 13:53
[2016-05-18 15:40] VITALS: BP 137/76
[2016-05-18] MEDS ORDERED: DEXTROSE 50% 25 GM / 50ML DISP.SYRIN. IV PRN (18:00)
[2016-05-18] MEDS ORDERED: INSULIN ASPART 300 UNITS/3 ML INSULN.PEN SQ ONE (18:00)
[2016-05-18 19:12] LABS: SPECIMEN SOURCE Urine (.)
[2016-05-18 19:54] VITALS: BP 103/49
[2016-05-18] MEDS: MONTELUKAST SODIUM 10 MG TABLET. PO SCH (21:43)
[2016-05-18] MEDS: traZODone 50 MG TABLET. PO SCH (21:43)
[2016-05-18] MEDS: ENOXAPARIN 40 MG/0.4 ML DISP.SYRIN. SQ SCH (21:45)
[2016-05-18 23:30] VITALS: BP 97/49
[2016-05-19] VITALS (7 sets, daily range): BP systolic 92–126; BP diastolic 47–72
[2016-05-19 04:56] LABS: BASO % 0 % (0-3); EOS % 0 % (0-3); HEMATOCRIT 40.4 % (36.0-47.0); HEMOGLOBIN 13.4 g/dL (12.0-15.5); LYMPH # 1.5 x10^3/uL (1.0-4.8); LYMPH % 30 % (24-48); MEAN CORPUSCULAR HEMOGLOBIN 28 pg (25-35); MEAN CORPUSCULAR HGB CONC 33 g/dL (31-37); MEAN CORPUSCULAR VOLUME 83 fL (79-100); MONO % 4 % (0-9); NEUT % 66 % (31-73); PLATELET COUNT 144 x10^3/uL (140-400); RED BLOOD COUNT 4.85 x10^6/uL (3.50-5.40); RED CELL DISTRIBUTION WIDTH 13.9 % (11.5-14.5); WHITE BLOOD COUNT 5.1 x10^3/uL (4.0-11.0)
[2016-05-19 05:32] LABS: CALCIUM 9.1 mg/dL (8.5-10.1); CREATININE 1.1 mg/dL (0.6-1.0); GFR 51.2; POTASSIUM 4.3 mmol/L (3.5-5.1)
[2016-05-19] MEDS: HYDROCODONE/APAP 5/325MG TABLET. PO PRN ×2 (06:32→20:28)
[2016-05-19] MEDS: BENZONATATE 100 MG CAPSULE. PO PRN (06:32)
[2016-05-19] MEDS: GUAIFENESIN 200 MG/10 ML LIQUID. PO PRN (06:32)
[2016-05-19] MEDS: NYSTATIN/TRIAMCIN TOPICAL CREAM 15GM TUBE. TP SCH ×2 (07:58→20:30)
[2016-05-19] MEDS: DEXAMETHASONE 0.1% OPHTH SOLUTION 5ML BOTTLE. AU SCH ×2 (07:58→20:29)
[2016-05-19] MEDS: CARBAMIDE PEROXIDE 6.5% OTIC SOLUTION 15ML BOTTLE. AU SCH ×2 (07:58→20:29)
[2016-05-19] MEDS: GLIPIZIDE 5 MG TABLET PO SCH ×2 (08:02→17:00)
[2016-05-19] MEDS: HYDROCHLOROTHIAZIDE 25 MG TABLET PO SCH (08:02)
[2016-05-19] MEDS: CYCLOBENZAPRINE 10 MG TABLET. PO SCH ×2 (08:02→20:27)
[2016-05-19] MEDS: PANTOPRAZOLE 40 MG TABLET. PO SCH (08:02)
[2016-05-19] MEDS: methylPREDNISolone SOD SUCC PF 40 MG/ML VIAL. IV SCH ×2 (08:03→20:28)
[2016-05-19] MEDS: BUDESONIDE 0.5 MG/2 ML NEBU NEB SCH ×2 (08:09→17:22)
[2016-05-19] MEDS: INSULIN ASPART 300 UNITS/3 ML INSULN.PEN SQ SCH ×3 (09:45→17:09)
--- NOTE | 2016-05-19 11:45 | PDOC ---
PROGRESS NOTES Chief Complaint Chief Complaint CC: SOB, cough, flu symptoms 1. COPD 2. Tobacco use 3. Bronchitis 4. Asthma 5. Chronic back pain 6. Hyperlipidemia 7. Diabetes 8. Hernia repair 9. Eye surgery 10. Carpal tunnel surgery 11. Hysterectomy History of Present Illness History of Present Illness Pt lying in bed Discussed pt's respiratory status Discussed pt's drop in blood pressure and will start IV fluids Possible D/C when OK with Pulmonology DW RN Vitals Vitals Vital Signs Date Time Temp Pulse Resp B/P Pulse Ox O2 Delivery O2 Flow Rate FiO2 05/19/16 10:48 97.4 64 18 122/67 92 Room Air 97.4 05/19/16 08:02 2.0 Physical Exam General: Alert, Oriented X3 Heart: Regular rate, No murmurs Lungs: Wheezing, Other (coarse breath sounds) Abdomen: Soft, No tenderness Extremities: No clubbing, No cyanosis Skin: No rashes, No breakdown Labs LABS Laboratory Tests Test 05/18/16 17:00 05/19/16 03:44 05/19/16 09:40 Glucose (Fingerstick) 337mg/dL (70-99) 349mg/dL (70-99) White Blood Count 5.1x10^3/uL (4.0-11.0) Red Blood Count 4.85x10^6/uL (3.50-5.40) Hemoglobin 13.4g/dL (12.0-15.5) Hematocrit 40.4% (36.0-47.0) Mean Corpuscular Volume 83fL (79-100) Mean Corpuscular Hemoglobin 28pg (25-35) Mean Corpuscular Hemoglobin Concent 33g/dL (31-37) Red Cell Distribution Width 13.9% (11.5-14.5) Platelet Count 144x10^3/uL (140-400) Neutrophils (%) (Auto) 66% (31-73) Lymphocytes (%) (Auto) 30% (24-48) Monocytes (%) (Auto) 4% (0-9) Eosinophils (%) (Auto) 0% (0-3) Basophils (%) (Auto) 0% (0-3) Neutrophils # (Auto) 3.4x10^3uL (1.8-7.7) Lymphocytes # (Auto) 1.5x10^3/uL (1.0-4.8) Monocytes # (Auto) 0.2x10^3/uL (0.0-1.1) Eosinophils # (Auto) 0.0x10^3/uL (0.0-0.7) Basophils # (Auto) 0.0x10^3/uL (0.0-0.2) Sodium Level 136mmol/L (136-145) Potassium Level 4.3mmol/L (3.5-5.1) Chloride Level 101mmol/L (98-107) Carbon Dioxide Level 26mmol/L (21-32) Anion Gap 9 (6-14) Blood Urea Nitrogen 22mg/dL (7-20) Creatinine 1.1mg/dL (0.6-1.0) Estimated GFR (Cockcroft-Gault) 51.2 Glucose Level 225mg/dL (70-99) Calcium Level 9.1mg/dL (8.5-10.1) Review of Systems Review of Systems Complains of fatigue Complains of cough Complains of SOA Assessment and Plan Assessmemt and Plan Problems Medical Problems: (1) CAP (community acquired pneumonia) Status: Acute Assessment: CC: SOB, cough, flu symptoms 1. COPD 2. Tobacco use 3. Bronchitis 4. Asthma 5. Chronic back pain 6. Hyperlipidemia 7. Diabetes 8. Hernia repair 9. Eye surgery 10. Carpal tunnel surgery 11. Hysterectomy Plan: Start IV fluids Possible D/C when OK with pulm Pulm is following - keep O2 sat > 92%, breathing treatment Continue meds recommended by pulm Continue home meds PTOT Recheck labs in am Appreciate input from subspecialty Problems: Comment Review of Relevant I have reviewed the following items chasity (where applicable) has been applied. Labs Laboratory Tests Test 05/18/16 00:47 05/18/16 05:42 05/18/16 17:00 05/19/16 03:44 Urine Legionella Antigen Negative (Negative) White Blood Count 6.2x10^3/uL (4.0-11.0) 5.1x10^3/uL (4.0-11.0) Red Blood Count 5.21x10^6/uL (3.50-5.40) 4.85x10^6/uL (3.50-5.40) Hemoglobin 14.4g/dL (12.0-15.5) 13.4g/dL (12.0-15.5) Hematocrit 42.9% (36.0-47.0) 40.4% (36.0-47.0) Mean Corpuscular Volume 82fL (79-100) 83fL (79-100) Mean Corpuscular Hemoglobin 28pg (25-35) 28pg (25-35) Mean Corpuscular Hemoglobin Concent 34g/dL (31-37) 33g/dL (31-37) Red Cell Distribution Width 14.3% (11.5-14.5) 13.9% (11.5-14.5) Platelet Count 160x10^3/uL (140-400) 144x10^3/uL (140-400) Neutrophils (%) (Auto) 50% (31-73) 66% (31-73) Lymphocytes (%) (Auto) 39% (24-48) 30% (24-48) Monocytes (%) (Auto) 9% (0-9) 4% (0-9) Eosinophils (%) (Auto) 1% (0-3) 0% (0-3) Basophils (%) (Auto) 1% (0-3) 0% (0-3) Neutrophils # (Auto) 3.1x10^3uL (1.8-7.7) 3.4x10^3uL (1.8-7.7) Lymphocytes # (Auto) 2.4x10^3/uL (1.0-4.8) 1.5x10^3/uL (1.0-4.8) Monocytes # (Auto) 0.5x10^3/uL (0.0-1.1) 0.2x10^3/uL (0.0-1.1) Eosinophils # (Auto) 0.1x10^3/uL (0.0-0.7) 0.0x10^3/uL (0.0-0.7) Basophils # (Auto) 0.0x10^3/uL (0.0-0.2) 0.0x10^3/uL (0.0-0.2) Sodium Level 140mmol/L (136-145) 136mmol/L (136-145) Potassium Level 3.6mmol/L (3.5-5.1) 4.3mmol/L (3.5-5.1) Chloride Level 104mmol/L (98-107) 101mmol/L (98-107) Carbon Dioxide Level 28mmol/L (21-32) 26mmol/L (21-32) Anion Gap 8 (6-14) 9 (6-14) Blood Urea Nitrogen 18mg/dL (7-20) 22mg/dL (7-20) Creatinine 0.9mg/dL (0.6-1.0) 1.1mg/dL (0.6-1.0) Estimated GFR (Cockcroft-Gault) 64.5 51.2 Glucose Level 83mg/dL (70-99) 225mg/dL (70-99) Calcium Level 9.1mg/dL (8.5-10.1) 9.1mg/dL (8.5-10.1) Glucose (Fingerstick) 337mg/dL (70-99) Test 05/19/16 09:40 Glucose (Fingerstick) 349mg/dL (70-99) Laboratory Tests Test 05/18/16 17:00 05/19/16 03:44 05/19/16 09:40 Glucose (Fingerstick) 337mg/dL (70-99) 349mg/dL (70-99) White Blood Count 5.1x10^3/uL (4.0-11.0) Red Blood Count 4.85x10^6/uL (3.50-5.40) Hemoglobin 13.4g/dL (12.0-15.5) Hematocrit 40.4% (36.0-47.0) Mean Corpuscular Volume 83fL (79-100) Mean Corpuscular Hemoglobin 28pg (25-35) Mean Corpuscular Hemoglobin Concent 33g/dL (31-37) Red Cell Distribution Width 13.9% (11.5-14.5) Platelet Count 144x10^3/uL (140-400) Neutrophils (%) (Auto) 66% (31-73) Lymphocytes (%) (Auto) 30% (24-48) Monocytes (%) (Auto) 4% (0-9) Eosinophils (%) (Auto) 0% (0-3) Basophils (%) (Auto) 0% (0-3) Neutrophils # (Auto) 3.4x10^3uL (1.8-7.7) Lymphocytes # (Auto) 1.5x10^3/uL (1.0-4.8) Monocytes # (Auto) 0.2x10^3/uL (0.0-1.1) Eosinophils # (Auto) 0.0x10^3/uL (0.0-0.7) Basophils # (Auto) 0.0x10^3/uL (0.0-0.2) Sodium Level 136mmol/L (136-145) Potassium Level 4.3mmol/L (3.5-5.1) Chloride Level 101mmol/L (98-107) Carbon Dioxide Level 26mmol/L (21-32) Anion Gap 9 (6-14) Blood Urea Nitrogen 22mg/dL (7-20) Creatinine 1.1mg/dL (0.6-1.0) Estimated GFR (Cockcroft-Gault) 51.2 Glucose Level 225mg/dL (70-99) Calcium Level 9.1mg/dL (8.5-10.1) Microbiology 05/16/16 Blood Culture - Preliminary, Resulted NO GROWTH AFTER 2 DAYS Medications Current Medications Albuterol/ Ipratropium (Duoneb) 3 ml 1X ONCE NEB Last administered on 22:30; Start 05/16/16 at 22:00; Stop 05/16/16 at 22:01; Status DC Albuterol/ Ipratropium (Duoneb) 3 ml RTQID NEB Last administered on 05/18/16 06:54; Start 05/17/16 at 08:00; Stop 05/18/16 at 07:59; Status DC Guaifenesin (Robitussin) 200 mg PRN Q4HRS PRN PO COUGH Last administered on 06:32; Start 05/16/16 at 23:00 Methylprednisolone Sodium Succinate 125 mg 125 mg 1X ONCE IV Last administered on 05/16/16 23:37; Start 05/16/16 at 23:15; Stop 05/16/16 at 23:16 ; Status DC Levofloxacin/ Dextrose (LEVAQUIN 500mg PREMIX) 100 ml @ 100 mls/hr 1X ONCE IV Last administered on 05/16/16 23:40; Start 05/16/16 at 23:15; Stop 05/17/16 at 00:14; Status DC Info (Do NOT chart on this placeholder) 1 each 1X ONCE MC ; Start 05/17/16 at 01:15; Stop 05/17/16 at 01:16; Status UNV Influenza Virus Vaccine Quadrival (Fluarix Quad [id number] Syringe) 0.5 ml ONCE ONCE VAX IM Last administered on 05/17/16 09:26; Start 05/17/16 at 09:00; Stop 05/17/16 at 09:01; Status DC Amoxicillin/ Clavulanate Potassium (Augmentin 875/ 125mg) 1 tab BID PO ; Start 05/17/16 at 21:00; Stop 05/17/16 at 21:00; Status DC Benzonatate (Tessalon Perle) 100 mg TID PRN PO COUGH Last administered on 13:49; Start 05/17/16 at 11:15; Stop 05/18/16 at 17:48; Status DC Cyclobenzaprine HCl (Flexeril) 10 mg BID PO Last administered on 05/19/16 08: 02; Start 05/17/16 at 12:00 Hydrochlorothiazide (Hydrodiuril) 25 mg DAILY PO Last administered on 08:02; Start 05/17/16 at 12:00 Acetaminophen/ Hydrocodone Bitart (Lortab 5/325) 1 tab QIDPRN PRN PO SEVERE PAIN Last administered on 05/19/16 06:32; Start 05/17/16 at 11:15 Acetaminophen/ Hydrocodone Bitart (Lortab 5/325) 1 tab PRN Q6HRS PRN PO PAIN; Start 05/17/16 at 11:15; Status UNV Ibuprofen (Motrin) 600 mg PRN TID PRN PO INFLAMMATION/PAIN; Start 05/17/16 at 11:15 Naproxen (Naprosyn) 500 mg BID PRN PO PAIN; Start 05/17/16 at 11:15; Status UNV Nystatin/ Triamcinolone Acetonide (Mycolog Ii) 1 sammy BID TP ; Start 05/17/16 at 12:00 Tramadol HCl (Ultram) 50 mg QIDPRN PRN PO MODERATE PAIN; Start 05/17/16 at 11: 15 Trazodone HCl (Desyrel) 50 mg QHS PO Last administered on 05/18/16 21:43; Start 05/17/16 at 21:00 Carbamide Peroxide (Debrox) 1 drop BID AU ; Start 05/17/16 at 21:00 Glipizide (Glucotrol) 10 mg BIDBFRMEAL PO Last administered on 05/19/16 08:02 ; Start 05/17/16 at 16:30 Dexamethasone (Maxidex) 1 drop BID AU ; Start 05/17/16 at 21:00 Budesonide (Pulmicort) 0.5 mg RTBID NEB Last administered on 05/19/16 08:09; Start 05/18/16 at 08:00 Methylprednisolone Sodium Succinate 40 mg 40 mg Q12HR IV Last administered on 08:03; Start 05/18/16 at 09:00 Levofloxacin/ Dextrose (LEVAQUIN 500mg PREMIX) 100 ml @ 100 mls/hr Q24H IV Last administered on 05/18/16 21:50; Start 05/17/16 at 21:30 Enoxaparin Sodium (Lovenox 40mg Syringe) 40 mg Q24H SQ Last administered on 21:45; Start 05/17/16 at 21:30 Pantoprazole Sodium (Protonix) 40 mg DAILYAC PO Last administered on 05/19/16 08:02; Start 05/18/16 at 07:30 Montelukast Sodium (Singulair) 10 mg QHS PO Last administered on 05/18/16 21: 43; Start 05/18/16 at 21:00 Benzonatate (Tessalon Perle) 100 mg PRN TID PRN PO COUGH Last administered on 06:32; Start 05/18/16 at 17:48 Insulin Aspart (Novolog) 15 units 1X ONCE SQ Last administered on 05/18/16 18 :45; Start 05/18/16 at 18:00; Stop 05/18/16 at 18:01; Status DC Insulin Aspart (Novolog) 0-7 UNITS TIDWMEALS SQ Last administered on 2/13/17at 09:45; Start 05/19/16 at 08:00 Dextrose 12.5 gm PRN Q15MIN PRN IV SEE COMMENTS; Start 05/18/16 at 18:00 Active Scripts Active Lortab 5-325 mg Tablet (Hydrocodone/Acetaminophen) 1 Each Tablet 1 Tab PO PRN Q4 -6HRS PRN Tessalon Perle (Benzonatate) 100 Mg Capsule 100 Mg PO TID PRN Hydrocortison-Acetic Acid Soln (Acetic Acid/Hydrocortisone) 10 Ml Drops 10 Ml OT BID Augmentin 875-125 Tablet (Amoxicillin/Potassium Clav) 1 Each Tablet 1 Tab PO BID Nystatin-Triamcinolone Cream (Nystatin/Triamcin) 15 Gm Cream..g. 1 Sammy TP BID [place] 5-325 Tablet (Acetaminophen/Hydrocodone Bitart) 1 Each Tablet 1 Tab PO PRN Q6HRS PRN Reported Ibuprofen 600 Mg Tablet 600 Mg PO PRN TID PRN Tramadol Hcl 50 Mg Tablet 1 Tab PO PRN Q4-6HRS PRN Trazodone Hcl 50 Mg Tablet 1 Tab PO QHS Naproxen 500 Mg Tablet 1 Tab PO BID PRN Glipizide 10 Mg Tablet 1 Tab PO DAILY Cyclobenzaprine Hcl 10 Mg Tablet 1 Tab PO BID Hydrochlorothiazide Tablet (Hydrochlorothiazide) 25 Mg Tablet 25 Mg PO DAILY Metformin Hcl 500 Mg Tablet 500 Mg PO BID Vitals/I & O Vital Sign - Last 24 Hours 05/18/16 05/18/16 05/18/16 05/18/16 11:39 13:49 15:40 18:15 Temp 97.7 97.5 97.7 97.5 Pulse 81 79 Resp 18 B/P 140/54 137/76 Pulse Ox 92 92 93 O2 Delivery Nasal Cannula Nasal Cannula Nasal Cannula Room Air O2 Flow Rate 2.0 2.0 2.0 05/18/16 05/18/16 05/18/16 05/18/16 19:54 20:00 21:43 23:30 Temp 98.8 98.1 98.8 98.1 Pulse 70 65 Resp 16 16 B/P 103/49 97/49 Pulse Ox 93 93 93 O2 Delivery Room Air Nasal Cannula Nasal Cannula Room Air O2 Flow Rate 2.0 2.0 05/19/16 05/19/16 05/19/16 05/19/16 03:22 06:32 07:06 08:00 Temp 97.9 97.5 97.9 97.5 Pulse 49 51 Resp 18 B/P 92/49 96/47 113/59 Pulse Ox 90 90 93 O2 Delivery Room Air Nasal Cannula Room Air O2 Flow Rate 2.0 05/19/16 05/19/16 05/19/16 05/19/16 08:00 08:02 08:13 10:48 Temp 97.4 97.4 Pulse 64 Resp B/P 122/67 Pulse Ox 93 94 92 O2 Delivery Room Air Nasal Cannula Room Air Room Air O2 Flow Rate 2.0 Intake and Output 05/18/16 05/18/16 05/19/16 15:00 23:00 07:00 Intake Total 460 ml 570 ml Output Total 600 ml Balance 460 ml -30 ml MELITON CAST III DO May 19, 2016 11:45
[2016-05-19] MEDS: IV NORMAL SALINE 1000ML BAG 1,000 ML IV SCH (12:07)
[2016-05-19] MEDS ORDERED: INSULIN ASPART 300 UNITS/3 ML INSULN.PEN SQ ONE (12:15)
--- NOTE | 2016-05-19 17:33 | PDOC ---
PULMONARY PROGRESS NOTES Subjective PT READY TO D/C Vitals Vital Signs Date Time Temp Pulse Resp B/P Pulse Ox O2 Delivery O2 Flow Rate FiO2 05/19/16 17:23 93 Room Air 05/19/16 14:53 97.5 63 18 114/55 97.5 05/19/16 08:02 2.0 Comments ros, as mention as above, no pain, other sys otherwise neg General: Oriented X4 HEENT: Other (nc at perrl, shallow oropharynx) Lungs: Wheezing, Other (coarse breath sounds) Cardiovascular: S1, S2 Abdomen: Soft, Non-tender Neuro Exam: Alert, Oriented Extremities: No Edema Skin: Warm Labs Laboratory Tests Test 05/18/16 00:47 05/18/16 05:42 05/18/16 17:00 05/19/16 03:44 Urine Legionella Antigen Negative (Negative) White Blood Count 6.2x10^3/uL (4.0-11.0) 5.1x10^3/uL (4.0-11.0) Red Blood Count 5.21x10^6/uL (3.50-5.40) 4.85x10^6/uL (3.50-5.40) Hemoglobin 14.4g/dL (12.0-15.5) 13.4g/dL (12.0-15.5) Hematocrit 42.9% (36.0-47.0) 40.4% (36.0-47.0) Mean Corpuscular Volume 82fL (79-100) 83fL (79-100) Mean Corpuscular Hemoglobin 28pg (25-35) 28pg (25-35) Mean Corpuscular Hemoglobin Concent 34g/dL (31-37) 33g/dL (31-37) Red Cell Distribution Width 14.3% (11.5-14.5) 13.9% (11.5-14.5) Platelet Count 160x10^3/uL (140-400) 144x10^3/uL (140-400) Neutrophils (%) (Auto) 50% (31-73) 66% (31-73) Lymphocytes (%) (Auto) 39% (24-48) 30% (24-48) Monocytes (%) (Auto) 9% (0-9) 4% (0-9) Eosinophils (%) (Auto) 1% (0-3) 0% (0-3) Basophils (%) (Auto) 1% (0-3) 0% (0-3) Neutrophils # (Auto) 3.1x10^3uL (1.8-7.7) 3.4x10^3uL (1.8-7.7) Lymphocytes # (Auto) 2.4x10^3/uL (1.0-4.8) 1.5x10^3/uL (1.0-4.8) Monocytes # (Auto) 0.5x10^3/uL (0.0-1.1) 0.2x10^3/uL (0.0-1.1) Eosinophils # (Auto) 0.1x10^3/uL (0.0-0.7) 0.0x10^3/uL (0.0-0.7) Basophils # (Auto) 0.0x10^3/uL (0.0-0.2) 0.0x10^3/uL (0.0-0.2) Sodium Level 140mmol/L (136-145) 136mmol/L (136-145) Potassium Level 3.6mmol/L (3.5-5.1) 4.3mmol/L (3.5-5.1) Chloride Level 104mmol/L (98-107) 101mmol/L (98-107) Carbon Dioxide Level 28mmol/L (21-32) 26mmol/L (21-32) Anion Gap 8 (6-14) 9 (6-14) Blood Urea Nitrogen 18mg/dL (7-20) 22mg/dL (7-20) Creatinine 0.9mg/dL (0.6-1.0) 1.1mg/dL (0.6-1.0) Estimated GFR (Cockcroft-Gault) 64.5 51.2 Glucose Level 83mg/dL (70-99) 225mg/dL (70-99) Calcium Level 9.1mg/dL (8.5-10.1) 9.1mg/dL (8.5-10.1) Glucose (Fingerstick) 337mg/dL (70-99) Test 05/19/16 09:40 05/19/16 11:47 05/19/16 14:36 05/19/16 16:49 Glucose (Fingerstick) 349mg/dL (70-99) 437mg/dL (70-99) 337mg/dL (70-99) 295mg/dL (70-99) Laboratory Tests Test 05/19/16 03:44 05/19/16 09:40 05/19/16 11:47 05/19/16 14:36 White Blood Count 5.1x10^3/uL (4.0-11.0) Red Blood Count 4.85x10^6/uL (3.50-5.40) Hemoglobin 13.4g/dL (12.0-15.5) Hematocrit 40.4% (36.0-47.0) Mean Corpuscular Volume 83fL (79-100) Mean Corpuscular Hemoglobin 28pg (25-35) Mean Corpuscular Hemoglobin Concent 33g/dL (31-37) Red Cell Distribution Width 13.9% (11.5-14.5) Platelet Count 144x10^3/uL (140-400) Neutrophils (%) (Auto) 66% (31-73) Lymphocytes (%) (Auto) 30% (24-48) Monocytes (%) (Auto) 4% (0-9) Eosinophils (%) (Auto) 0% (0-3) Basophils (%) (Auto) 0% (0-3) Neutrophils # (Auto) 3.4x10^3uL (1.8-7.7) Lymphocytes # (Auto) 1.5x10^3/uL (1.0-4.8) Monocytes # (Auto) 0.2x10^3/uL (0.0-1.1) Eosinophils # (Auto) 0.0x10^3/uL (0.0-0.7) Basophils # (Auto) 0.0x10^3/uL (0.0-0.2) Sodium Level 136mmol/L (136-145) Potassium Level 4.3mmol/L (3.5-5.1) Chloride Level 101mmol/L (98-107) Carbon Dioxide Level 26mmol/L (21-32) Anion Gap 9 (6-14) Blood Urea Nitrogen 22mg/dL (7-20) Creatinine 1.1mg/dL (0.6-1.0) Estimated GFR (Cockcroft-Gault) 51.2 Glucose Level 225mg/dL (70-99) Calcium Level 9.1mg/dL (8.5-10.1) Glucose (Fingerstick) 349mg/dL (70-99) 437mg/dL (70-99) 337mg/dL (70-99) Test 05/19/16 16:49 Glucose (Fingerstick) 295mg/dL (70-99) Medications Active Scripts Medications Dose Route/Sig Days Date Category Ibuprofen 600 Mg Tablet 600 Mg PO PRN TID PRN 05/17/16 Reported Tramadol Hcl 50 Mg Tablet 1 Tab PO PRN Q4-6HRS PRN 05/17/16 Reported Trazodone Hcl 50 Mg Tablet 1 Tab PO QHS 05/17/16 Reported Naproxen 500 Mg Tablet 1 Tab PO BID PRN 05/17/16 Reported Glipizide 10 Mg Tablet 1 Tab PO DAILY 05/17/16 Reported Cyclobenzaprine Hcl 10 Mg Tablet 1 Tab PO BID 05/17/16 Reported Hydrochlorothiazide Tablet (Hydrochlorothiazide) 25 Mg Tablet 25 Mg PO DAILY 05/17/16 Reported Lortab 5-325 mg Tablet (Hydrocodone/Acetaminophen) 1 Each Tablet 1 Tab PO PRN Q4-6HRS PRN 05/09/16 Rx Tessalon Perle (Benzonatate) 100 Mg Capsule 100 Mg PO TID PRN 04/17/16 Rx Hydrocortison-Acetic Acid Soln (Acetic Acid/Hydrocortisone) 10 Ml Drops 10 Ml OT BID 04/17/16 Rx Augmentin 875-125 Tablet (Amoxicillin/Potassium Clav) 1 Each Tablet 1 Tab PO BID 04/17/16 Rx Nystatin-Triamcinolone Cream (Nystatin/Triamcin) 15 Gm Cream..g. 1 Sammy TP BID 02/24/16 Rx [place] 5-325 Tablet (Acetaminophen/Hydrocodone Bitart) 1 Each Tablet 1 Tab PO PRN Q6HRS PRN 02/24/16 Rx Metformin Hcl 500 Mg Tablet 500 Mg PO BID 03/16/13 Reported Comments cxr reviewed, There is some subtle right base airspace opacity which may be due to infiltrate. Impression . IMPRESSION: 1. Acute respiratory failure, multifactorial in etiology. 2. right infiltrates 3. Acute exacerbation of COPD. 4. Acute bronchitis versus pneumonia. 5. Smoker. 6. Diabetes mellitus. 7. Hypercholesterolemia. 8. Obesity, snoring and excessive daytime sleepiness, probable obstructive sleep apnea-hypopnea syndrome. 9. allergic rhinitis Plan . d/c in am oral pred and steroids will s/o MEREDITH ANDINO MD May 19, 2016 17:33
[2016-05-19] MEDS: traZODone 50 MG TABLET. PO SCH (20:27)
[2016-05-19] MEDS: MONTELUKAST SODIUM 10 MG TABLET. PO SCH (20:27)
[2016-05-19] MEDS: ENOXAPARIN 40 MG/0.4 ML DISP.SYRIN. SQ SCH (20:28)
[2016-05-19] MEDS: DOXYCYCLINE HYCLATE 100 MG TABLET PO SCH (21:27)
[2016-05-20] MEDS: IV NORMAL SALINE 1000ML BAG 1,000 ML IV SCH (01:58)
[2016-05-20 03:25] VITALS: BP 112/63
[2016-05-20] MEDS: BENZONATATE 100 MG CAPSULE. PO PRN (05:00)
[2016-05-20] MEDS: GUAIFENESIN 200 MG/10 ML LIQUID. PO PRN (05:00)
[2016-05-20 05:53] LABS: BASO % 0 % (0-3); EOS % 0 % (0-3); HEMATOCRIT 42.4 % (36.0-47.0); HEMOGLOBIN 14.2 g/dL (12.0-15.5); LYMPH # 1.8 x10^3/uL (1.0-4.8); LYMPH % 28 % (24-48); MEAN CORPUSCULAR HEMOGLOBIN 28 pg (25-35); MEAN CORPUSCULAR HGB CONC 34 g/dL (31-37); MEAN CORPUSCULAR VOLUME 82 fL (79-100); MONO % 6 % (0-9); NEUT % 66 % (31-73); PLATELET COUNT 148 x10^3/uL (140-400); RED BLOOD COUNT 5.16 x10^6/uL (3.50-5.40); RED CELL DISTRIBUTION WIDTH 14.1 % (11.5-14.5); WHITE BLOOD COUNT 6.5 x10^3/uL (4.0-11.0)
[2016-05-20 05:59] LABS: CALCIUM 9.1 mg/dL (8.5-10.1); CREATININE 0.9 mg/dL (0.6-1.0); GFR 64.5; POTASSIUM 3.9 mmol/L (3.5-5.1)
[2016-05-20 07:05] VITALS: BP 129/74
[2016-05-20] MEDS: BUDESONIDE 0.5 MG/2 ML NEBU NEB SCH (07:54)
[2016-05-20] MEDS: CARBAMIDE PEROXIDE 6.5% OTIC SOLUTION 15ML BOTTLE. AU SCH (09:00)
[2016-05-20] MEDS: NYSTATIN/TRIAMCIN TOPICAL CREAM 15GM TUBE. TP SCH (09:00)
[2016-05-20] MEDS: DEXAMETHASONE 0.1% OPHTH SOLUTION 5ML BOTTLE. AU SCH (09:00)
[2016-05-20] MEDS ORDERED: PREDNISONE 10 MG TABLET PO SCH (09:00)
[2016-05-20] MEDS: HYDROCHLOROTHIAZIDE 25 MG TABLET PO SCH (09:26)
[2016-05-20] MEDS: CYCLOBENZAPRINE 10 MG TABLET. PO SCH (09:27)
[2016-05-20] MEDS: DOXYCYCLINE HYCLATE 100 MG TABLET PO SCH (09:27)
[2016-05-20] MEDS: GLIPIZIDE 5 MG TABLET PO SCH (09:27)
[2016-05-20] MEDS: PANTOPRAZOLE 40 MG TABLET. PO SCH (09:27)
[2016-05-20] MEDS: INSULIN ASPART 300 UNITS/3 ML INSULN.PEN SQ SCH ×2 (09:34→12:44)
[2016-05-20 10:48] VITALS: BP 140/77
--- NOTE | 2016-05-20 11:25 | PDOC ---
PROGRESS NOTES Chief Complaint Chief Complaint CC: SOB, cough, flu symptoms 1. COPD 2. Tobacco use 3. Bronchitis 4. Asthma 5. Chronic back pain 6. Hyperlipidemia 7. Diabetes 8. Hernia repair 9. Eye surgery 10. Carpal tunnel surgery 11. Hysterectomy History of Present Illness History of Present Illness Pt sitting in chair Pt returning to baseline Pt feeling well enough to go gauri Probable D/C today Discussed pt returning to work on 05/26/16 VSS PASCUAL RN Vitals Vitals Vital Signs Date Time Temp Pulse Resp B/P Pulse Ox O2 Delivery O2 Flow Rate FiO2 05/20/16 10:48 97.5 65 20 140/77 95 Room Air 97.5 05/19/16 08:02 2.0 Physical Exam General: Alert, Oriented X3 Heart: Regular rate, No murmurs Lungs: Clear, Other (No wheezes) Abdomen: Soft, No tenderness Extremities: No clubbing, No cyanosis Skin: No rashes, No breakdown Labs LABS Laboratory Tests Test 05/19/16 11:47 05/19/16 14:36 05/19/16 16:49 05/19/16 21:29 Glucose (Fingerstick) 437mg/dL (70-99) 337mg/dL (70-99) 295mg/dL (70-99) 342mg/dL (70-99) Test 05/20/16 04:16 05/20/16 04:18 05/20/16 07:05 Sodium Level 138mmol/L (136-145) Potassium Level 3.9mmol/L (3.5-5.1) Chloride Level 103mmol/L (98-107) Carbon Dioxide Level 22mmol/L (21-32) Anion Gap 13 (6-14) Blood Urea Nitrogen 19mg/dL (7-20) Creatinine 0.9mg/dL (0.6-1.0) Estimated GFR (Cockcroft-Gault) 64.5 Glucose Level 293mg/dL (70-99) Calcium Level 9.1mg/dL (8.5-10.1) White Blood Count 6.5x10^3/uL (4.0-11.0) Red Blood Count 5.16x10^6/uL (3.50-5.40) Hemoglobin 14.2g/dL (12.0-15.5) Hematocrit 42.4% (36.0-47.0) Mean Corpuscular Volume 82fL (79-100) Mean Corpuscular Hemoglobin 28pg (25-35) Mean Corpuscular Hemoglobin Concent 34g/dL (31-37) Red Cell Distribution Width 14.1% (11.5-14.5) Platelet Count 148x10^3/uL (140-400) Neutrophils (%) (Auto) 66% (31-73) Lymphocytes (%) (Auto) 28% (24-48) Monocytes (%) (Auto) 6% (0-9) Eosinophils (%) (Auto) 0% (0-3) Basophils (%) (Auto) 0% (0-3) Neutrophils # (Auto) 4.3x10^3uL (1.8-7.7) Lymphocytes # (Auto) 1.8x10^3/uL (1.0-4.8) Monocytes # (Auto) 0.4x10^3/uL (0.0-1.1) Eosinophils # (Auto) 0.0x10^3/uL (0.0-0.7) Basophils # (Auto) 0.0x10^3/uL (0.0-0.2) Glucose (Fingerstick) 307mg/dL (70-99) Review of Systems Review of Systems Complains of constipation Comlains of fatigue Assessment and Plan Assessmemt and Plan Problems Medical Problems: (1) CAP (community acquired pneumonia) Status: Acute Assessment: CC: SOB, cough, flu symptoms 1. COPD 2. Tobacco use 3. Bronchitis 4. Asthma 5. Chronic back pain 6. Hyperlipidemia 7. Diabetes 8. Hernia repair 9. Eye surgery 10. Carpal tunnel surgery 11. Hysterectomy Plan: Probable D/C today Send home with Levaquin Send home with Medrol Nebs Continue home meds Appreciate input from subspecialty Problems: Comment Review of Relevant I have reviewed the following items chasity (where applicable) has been applied. Labs Laboratory Tests Test 05/18/16 17:00 05/19/16 03:44 05/19/16 09:40 05/19/16 11:47 Glucose (Fingerstick) 337mg/dL (70-99) 349mg/dL (70-99) 437mg/dL (70-99) White Blood Count 5.1x10^3/uL (4.0-11.0) Red Blood Count 4.85x10^6/uL (3.50-5.40) Hemoglobin 13.4g/dL (12.0-15.5) Hematocrit 40.4% (36.0-47.0) Mean Corpuscular Volume 83fL (79-100) Mean Corpuscular Hemoglobin 28pg (25-35) Mean Corpuscular Hemoglobin Concent 33g/dL (31-37) Red Cell Distribution Width 13.9% (11.5-14.5) Platelet Count 144x10^3/uL (140-400) Neutrophils (%) (Auto) 66% (31-73) Lymphocytes (%) (Auto) 30% (24-48) Monocytes (%) (Auto) 4% (0-9) Eosinophils (%) (Auto) 0% (0-3) Basophils (%) (Auto) 0% (0-3) Neutrophils # (Auto) 3.4x10^3uL (1.8-7.7) Lymphocytes # (Auto) 1.5x10^3/uL (1.0-4.8) Monocytes # (Auto) 0.2x10^3/uL (0.0-1.1) Eosinophils # (Auto) 0.0x10^3/uL (0.0-0.7) Basophils # (Auto) 0.0x10^3/uL (0.0-0.2) Sodium Level 136mmol/L (136-145) Potassium Level 4.3mmol/L (3.5-5.1) Chloride Level 101mmol/L (98-107) Carbon Dioxide Level 26mmol/L (21-32) Anion Gap 9 (6-14) Blood Urea Nitrogen 22mg/dL (7-20) Creatinine 1.1mg/dL (0.6-1.0) Estimated GFR (Cockcroft-Gault) 51.2 Glucose Level 225mg/dL (70-99) Calcium Level 9.1mg/dL (8.5-10.1) Test 05/19/16 14:36 05/19/16 16:49 05/19/16 21:29 05/20/16 04:16 Glucose (Fingerstick) 337mg/dL (70-99) 295mg/dL (70-99) 342mg/dL (70-99) Sodium Level 138mmol/L (136-145) Potassium Level 3.9mmol/L (3.5-5.1) Chloride Level 103mmol/L (98-107) Carbon Dioxide Level 22mmol/L (21-32) Anion Gap 13 (6-14) Blood Urea Nitrogen 19mg/dL (7-20) Creatinine 0.9mg/dL (0.6-1.0) Estimated GFR (Cockcroft-Gault) 64.5 Glucose Level 293mg/dL (70-99) Calcium Level 9.1mg/dL (8.5-10.1) Test 05/20/16 04:18 05/20/16 07:05 White Blood Count 6.5x10^3/uL (4.0-11.0) Red Blood Count 5.16x10^6/uL (3.50-5.40) Hemoglobin 14.2g/dL (12.0-15.5) Hematocrit 42.4% (36.0-47.0) Mean Corpuscular Volume 82fL (79-100) Mean Corpuscular Hemoglobin 28pg (25-35) Mean Corpuscular Hemoglobin Concent 34g/dL (31-37) Red Cell Distribution Width 14.1% (11.5-14.5) Platelet Count 148x10^3/uL (140-400) Neutrophils (%) (Auto) 66% (31-73) Lymphocytes (%) (Auto) 28% (24-48) Monocytes (%) (Auto) 6% (0-9) Eosinophils (%) (Auto) 0% (0-3) Basophils (%) (Auto) 0% (0-3) Neutrophils # (Auto) 4.3x10^3uL (1.8-7.7) Lymphocytes # (Auto) 1.8x10^3/uL (1.0-4.8) Monocytes # (Auto) 0.4x10^3/uL (0.0-1.1) Eosinophils # (Auto) 0.0x10^3/uL (0.0-0.7) Basophils # (Auto) 0.0x10^3/uL (0.0-0.2) Glucose (Fingerstick) 307mg/dL (70-99) Laboratory Tests Test 05/19/16 11:47 05/19/16 14:36 05/19/16 16:49 05/19/16 21:29 Glucose (Fingerstick) 437mg/dL (70-99) 337mg/dL (70-99) 295mg/dL (70-99) 342mg/dL (70-99) Test 05/20/16 04:16 05/20/16 04:18 05/20/16 07:05 Sodium Level 138mmol/L (136-145) Potassium Level 3.9mmol/L (3.5-5.1) Chloride Level 103mmol/L (98-107) Carbon Dioxide Level 22mmol/L (21-32) Anion Gap 13 (6-14) Blood Urea Nitrogen 19mg/dL (7-20) Creatinine 0.9mg/dL (0.6-1.0) Estimated GFR (Cockcroft-Gault) 64.5 Glucose Level 293mg/dL (70-99) Calcium Level 9.1mg/dL (8.5-10.1) White Blood Count 6.5x10^3/uL (4.0-11.0) Red Blood Count 5.16x10^6/uL (3.50-5.40) Hemoglobin 14.2g/dL (12.0-15.5) Hematocrit 42.4% (36.0-47.0) Mean Corpuscular Volume 82fL (79-100) Mean Corpuscular Hemoglobin 28pg (25-35) Mean Corpuscular Hemoglobin Concent 34g/dL (31-37) Red Cell Distribution Width 14.1% (11.5-14.5) Platelet Count 148x10^3/uL (140-400) Neutrophils (%) (Auto) 66% (31-73) Lymphocytes (%) (Auto) 28% (24-48) Monocytes (%) (Auto) 6% (0-9) Eosinophils (%) (Auto) 0% (0-3) Basophils (%) (Auto) 0% (0-3) Neutrophils # (Auto) 4.3x10^3uL (1.8-7.7) Lymphocytes # (Auto) 1.8x10^3/uL (1.0-4.8) Monocytes # (Auto) 0.4x10^3/uL (0.0-1.1) Eosinophils # (Auto) 0.0x10^3/uL (0.0-0.7) Basophils # (Auto) 0.0x10^3/uL (0.0-0.2) Glucose (Fingerstick) 307mg/dL (70-99) Microbiology 05/16/16 Blood Culture - Preliminary, Resulted NO GROWTH AFTER 3 DAYS Medications Current Medications Albuterol/ Ipratropium (Duoneb) 3 ml 1X ONCE NEB Last administered on 22:30; Start 05/16/16 at 22:00; Stop 05/16/16 at 22:01; Status DC Albuterol/ Ipratropium (Duoneb) 3 ml RTQID NEB Last administered on 05/18/16 06:54; Start 05/17/16 at 08:00; Stop 05/18/16 at 07:59; Status DC Guaifenesin (Robitussin) 200 mg PRN Q4HRS PRN PO COUGH Last administered on 05:00; Start 05/16/16 at 23:00 Methylprednisolone Sodium Succinate 125 mg 125 mg 1X ONCE IV Last administered on 05/16/16 23:37; Start 05/16/16 at 23:15; Stop 05/16/16 at 23:16 ; Status DC Levofloxacin/ Dextrose (LEVAQUIN 500mg PREMIX) 100 ml @ 100 mls/hr 1X ONCE IV Last administered on 05/16/16 23:40; Start 05/16/16 at 23:15; Stop 05/17/16 at 00:14; Status DC Info (Do NOT chart on this placeholder) 1 each 1X ONCE MC ; Start 05/17/16 at 01:15; Stop 05/17/16 at 01:16; Status UNV Influenza Virus Vaccine Quadrival (Fluarix Quad 3705-2823 Syringe) 0.5 ml ONCE ONCE VAX IM Last administered on 05/17/16 09:26; Start 05/17/16 at 09:00; Stop 05/17/16 at 09:01; Status DC Amoxicillin/ Clavulanate Potassium (Augmentin 875/ 125mg) 1 tab BID PO ; Start 05/17/16 at 21:00; Stop 05/17/16 at 21:00; Status DC Benzonatate (Tessalon Perle) 100 mg TID PRN PO COUGH Last administered on 13:49; Start 05/17/16 at 11:15; Stop 05/18/16 at 17:48; Status DC Cyclobenzaprine HCl (Flexeril) 10 mg BID PO Last administered on 05/20/16 09: 27; Start 05/17/16 at 12:00 Hydrochlorothiazide (Hydrodiuril) 25 mg DAILY PO Last administered on 09:26; Start 05/17/16 at 12:00 Acetaminophen/ Hydrocodone Bitart (Lortab 5/325) 1 tab QIDPRN PRN PO SEVERE PAIN Last administered on 05/19/16 20:28; Start 05/17/16 at 11:15 Acetaminophen/ Hydrocodone Bitart (Lortab 5/325) 1 tab PRN Q6HRS PRN PO PAIN; Start 05/17/16 at 11:15; Status UNV Ibuprofen (Motrin) 600 mg PRN TID PRN PO INFLAMMATION/PAIN; Start 05/17/16 at 11:15 Naproxen (Naprosyn) 500 mg BID PRN PO PAIN; Start 05/17/16 at 11:15; Status UNV Nystatin/ Triamcinolone Acetonide (Mycolog Ii) 1 sammy BID TP ; Start 05/17/16 at 12:00 Tramadol HCl (Ultram) 50 mg QIDPRN PRN PO MODERATE PAIN; Start 05/17/16 at 11: 15 Trazodone HCl (Desyrel) 50 mg QHS PO Last administered on 05/19/16 20:27; Start 05/17/16 at 21:00 Carbamide Peroxide (Debrox) 1 drop BID AU ; Start 05/17/16 at 21:00 Glipizide (Glucotrol) 10 mg BIDBFRMEAL PO Last administered on 05/20/16 09:27 ; Start 05/17/16 at 16:30 Dexamethasone (Maxidex) 1 drop BID AU ; Start 05/17/16 at 21:00 Budesonide (Pulmicort) 0.5 mg RTBID NEB Last administered on 05/20/16 07:54; Start 05/18/16 at 08:00 Methylprednisolone Sodium Succinate 40 mg 40 mg Q12HR IV Last administered on 20:28; Start 05/18/16 at 09:00; Stop 05/19/16 at 20:56; Status DC Levofloxacin/ Dextrose (LEVAQUIN 500mg PREMIX) 100 ml @ 100 mls/hr Q24H IV Last administered on 05/19/16 20:29; Start 05/17/16 at 21:30; Stop 05/19/16 at 20:56; Status DC Enoxaparin Sodium (Lovenox 40mg Syringe) 40 mg Q24H SQ Last administered on 20:28; Start 05/17/16 at 21:30 Pantoprazole Sodium (Protonix) 40 mg DAILYAC PO Last administered on 05/20/16 09:27; Start 05/18/16 at 07:30 Montelukast Sodium (Singulair) 10 mg QHS PO Last administered on 05/19/16 20: 27; Start 05/18/16 at 21:00 Benzonatate (Tessalon Perle) 100 mg PRN TID PRN PO COUGH Last administered on 05:00; Start 05/18/16 at 17:48 Insulin Aspart (Novolog) 15 units 1X ONCE SQ Last administered on 05/18/16 18 :45; Start 05/18/16 at 18:00; Stop 05/18/16 at 18:01; Status DC Insulin Aspart (Novolog) 0-7 UNITS TIDWMEALS SQ Last administered on 05/20/16 09:34; Start 05/19/16 at 08:00 Dextrose 12.5 gm 12.5 gm PRN Q15MIN PRN IV SEE COMMENTS; Start 05/18/16 at 18: 00 Sodium Chloride (Iv Sodium Chloride 0.9% 1000ml Bag) 1,000 ml @ 75 mls/hr [id number] IV Last administered on 05/20/16 01:58; Start 05/19/16 at 13:00 Insulin Aspart (Novolog) 20 units 1X ONCE SQ Last administered on 05/19/16 12 :09; Start 05/19/16 at 12:15; Stop 05/19/16 at 12:16; Status DC Doxycycline Hyclate (Vibra-Tab) 100 mg BID PO Last administered on 05/20/16 09 :27; Start 05/19/16 at 21:30 Prednisone (Prednisone) 30 mg DAILY PO Last administered on 05/20/16 09:27; Start 05/20/16 at 09:00 Active Scripts Active Lortab 5-325 mg Tablet (Hydrocodone/Acetaminophen) 1 Each Tablet 1 Tab PO PRN Q4 -6HRS PRN Tessalon Perle (Benzonatate) 100 Mg Capsule 100 Mg PO TID PRN Hydrocortison-Acetic Acid Soln (Acetic Acid/Hydrocortisone) 10 Ml Drops 10 Ml OT BID Augmentin 875-125 Tablet (Amoxicillin/Potassium Clav) 1 Each Tablet 1 Tab PO BID Nystatin-Triamcinolone Cream (Nystatin/Triamcin) 15 Gm Cream..g. 1 Sammy TP BID [place] 5-325 Tablet (Acetaminophen/Hydrocodone Bitart) 1 Each Tablet 1 Tab PO PRN Q6HRS PRN Reported Ibuprofen 600 Mg Tablet 600 Mg PO PRN TID PRN Tramadol Hcl 50 Mg Tablet 1 Tab PO PRN Q4-6HRS PRN Trazodone Hcl 50 Mg Tablet 1 Tab PO QHS Naproxen 500 Mg Tablet 1 Tab PO BID PRN Glipizide 10 Mg Tablet 1 Tab PO DAILY Cyclobenzaprine Hcl 10 Mg Tablet 1 Tab PO BID Hydrochlorothiazide Tablet (Hydrochlorothiazide) 25 Mg Tablet 25 Mg PO DAILY Metformin Hcl 500 Mg Tablet 500 Mg PO BID Vitals/I & O Vital Sign - Last 24 Hours 05/19/16 05/19/16 05/19/16 05/19/16 14:53 17:23 19:20 20:00 Temp 97.5 97.7 97.5 97.7 Pulse 63 67 Resp 18 18 B/P 114/55 126/72 Pulse Ox 93 93 95 O2 Delivery Room Air Room Air Room Air Room Air 05/19/16 05/19/16 05/19/16 05/20/16 20:28 21:29 23:07 03:25 Temp 98.0 97.7 98.0 97.7 Pulse 68 56 Resp 18 18 B/P 109/57 112/63 Pulse Ox 93 93 O2 Delivery Room Air Room Air Room Air Room Air 05/20/16 05/20/16 05/20/16 05/20/16 07:05 07:50 08:00 10:48 Temp 97.9 97.5 97.9 97.5 Pulse 68 65 Resp 20 20 B/P 129/74 140/77 Pulse Ox 94 94 95 O2 Delivery Room Air Room Air Room Air Room Air Intake and Output 05/19/16 05/19/16 05/20/16 15:00 23:00 07:00 Intake Total 1025 ml Output Total 1200 ml 300 ml 600 ml Balance -1200 ml 725 ml -600 ml MELITON CAST III DO May 20, 2016 11:25
== END 2016-05-20 14:00 | disposition home or self-care (01) | DRG 193 ==
LOC: ER 20:51 → 6 SOUTH 23:05
PROVIDERS: ADMIT Internal Medicine; ATTEND Internal Medicine
DX: J18.9 Pneumonia, unspecified organism (principal); J96.00 Acute respiratory failure, unspecified whether with hypoxia or hypercapnia; E87.1 Hypo-osmolality and hyponatremia; J44.0 Chronic obstructive pulmonary disease with (acute) lower respiratory infection; J44.1 Chronic obstructive pulmonary disease with (acute) exacerbation; Z68.41 Body mass index [BMI] 40.0-44.9, adult; M54.9 Dorsalgia, unspecified; G89.29 Other chronic pain; F17.210 Nicotine dependence, cigarettes, uncomplicated; E11.9 Type 2 diabetes mellitus without complications; E66.9 Obesity, unspecified; E78.00 Pure hypercholesterolemia, unspecified; E78.5 Hyperlipidemia, unspecified; F17.200 Nicotine dependence, unspecified, uncomplicated; G47.33 Obstructive sleep apnea (adult) (pediatric); J45.909 Unspecified asthma, uncomplicated; Z83.3 Family history of diabetes mellitus; Z90.49 Acquired absence of other specified parts of digestive tract; Z90.710 Acquired absence of both cervix and uterus; Z79.899 Other long term (current) drug therapy
CPT/HCPCS: 36415; 71020; 80048; 80053; 82947; 83880; 85027; 87040; 87449; 87804; 90686; 94250; 94640; 96374; 96375; J1650; J1815; J1956; J2920; J2930; J7030; J7512; J7620; 97110; 97116; 99285-25

== ENCOUNTER 2016-06-13 22:23 | Emergency (ER) | payer SELFPAY ==
[~2016-06-13] VITALS: Ht 165.1 cm; Wt 108.9 kg
[~2016-06-13 22:23] MED LIST changes: +CYCL10TA2 PO; +GLIP10TA13 PO; +HYDR25TA9 PO; +IBUP-1007 PO; +NAPR500T3 PO; +TRAM50TA PO; +TRAZ50TA15 PO
[2016-06-13 22:44] VITALS: BP 156/82
[2016-06-13] MEDS ORDERED: BENZ100C PO (23:23)
[2016-06-13] MEDS ORDERED: PROAIR RESPICL90 MCG IH (23:23)
--- NOTE | 2016-06-13 23:23 | PHYS DOC ---
Past Medical History Past Medical History: Asthma, Bronchitis, Diabetes-Type II, High Cholesterol Additional Past Medical Histor: CHRONIC PAIN Past Surgical History: Hysterectomy Additional Past Surgical Histo: ABD HERNIA, EYE SURGERY, CARPAL TUNNEL RELEASE : R Alcohol Use: None Drug Use: None Adult General Chief Complaint Chief Complaint: Congestion HPI HPI Patient is a 56 year old female who presents with a productive cough with nasal congestion for 3 days. Patient denies any fever or shortness of breath. She states she was admitted in the hospital 1 month ago for pneumonia and feels she could have pneumonia again. Review of Systems Review of Systems Constitutional: See history of present illness Eyes: Denies change in visual acuity, redness, or eye pain [] HENT: nasal congestion Respiratory: cough Cardiovascular: No additional information not addressed in HPI [] GI: Denies abdominal pain, nausea, vomiting, bloody stools or diarrhea [] : Denies dysuria or hematuria [] Musculoskeletal: Denies back pain or joint pain [] Integument: Denies rash or skin lesions [] Neurologic: Denies headache, focal weakness or sensory changes [] Endocrine: Denies polyuria or polydipsia [] Allergies Allergies Allergies Coded Allergies Type Severity Reaction Last Updated Verified No Known Drug Allergies 03/16/13 No Physical Exam Physical Exam Constitutional: Well developed, well nourished, no acute distress, non-toxic appearance. [] HENT: Normocephalic, atraumatic, bilateral external ears normal, oropharynx moist, no oral exudates, nose normal. [] Eyes: PERRLA, EOMI, conjunctiva normal, no discharge. [] Neck: Normal range of motion, no tenderness, supple, no stridor. [] Cardiovascular:Heart rate regular rhythm, no murmur [] Lungs & Thorax: Bilateral breath sounds clear to auscultation [] Abdomen: Bowel sounds normal, soft, no tenderness, no masses, no pulsatile masses. [] Skin: Warm, dry, no erythema, no rash. [] Back: No tenderness, no CVA tenderness. [] Extremities: No tenderness, no cyanosis, no clubbing, ROM intact, no edema. [] Neurologic: Alert and oriented X 3, normal motor function, normal sensory function, no focal deficits noted. [] Psychologic: Affect normal, judgement normal, mood normal. [] Current Patient Data Vital Signs Vital Signs Date Time Temp Pulse Resp B/P Pulse Ox O2 Delivery O2 Flow Rate FiO2 06/13/16 22:44 97.8 78 18 97 Room Air 97.8 EKG EKG [] Radiology/Procedures Radiology/Procedures [] Course & Med Decision Making Course & Med Decision Making Pertinent Labs and Imaging studies reviewed. (See chart for details) Patient is in the ED with symptoms of an upper respiratory infection including coughing and nasal congestion. Chest x-ray interpreted by Dr. Nathan is negative for any acute findings. Symptoms are viral. Discharged with Tessalon Perles and albuterol inhaler. Instructed to follow-up with PCP in one week. Provided return precautions and discharged in stable condition. Dragon Disclaimer Dragon Disclaimer This electronic medical record was generated, in whole or in part, using a voice recognition dictation system. Departure Departure Impression: Primary Impression: Acute bronchitis Additional Impression: Upper respiratory infection Disposition: HOME, SELF-CARE Condition: STABLE Referrals: UNKNOWN PCP NAME (PCP) Follow-up with your doctor in one week Patient Instructions: Acute Bronchitis, Upper Respiratory Infection, Adult, [id number] Additional Instructions: You were seen for acute bronchitis which is viral in nature and an upper respiratory infection. Use inhaler as needed. Follow-up with your doctor in one week. Come back to the ED if symptoms worsen. Scripts Benzonatate (Tessalon Perle)100 Mg Capsule1 Cap PO TID #30 CAP Prov:CHIDI ROSAS APRN 06/13/16 Albuterol Sulfate (Proair Respiclick)90 Mcg Aer.pow.ba1 Puff IH PRN Q6HRS PRN SHORTNESS OF BREATH #1 INHALER Prov:CHIDI ROSAS APRN 06/13/16 Problem Qualifiers Primary Impression: Acute bronchitis Bronchitis organism: unspecified organism Qualified Code: J20.9 - Acute bronchitis, unspecified Additional Impression: Upper respiratory infection URI type: unspecified URI Qualified Code: J06.9 - Acute upper respiratory infection, unspecified CHIDI ROSAS APRN Jun 13, 2016 23:23
--- NOTE | 2016-06-14 07:55 | RAD ---
Exam performed: 2 views of the chest. Indication: cough for today's Date of Service:06/14/2016 12:50 AM . Comparison : None available Findings: PA and lateral radiographs of the chest reveal a normal cardiomediastinal contour. The lungs are clear. No pleural fluid is seen. The visualized osseous structures are unremarkable. Impression: Radiographically normal chest.
== END 2016-06-13 23:32 | disposition home or self-care (01) ==
LOC: ER 22:23
DX: J20.9 Acute bronchitis, unspecified (principal); J06.9 Acute upper respiratory infection, unspecified; J45.909 Unspecified asthma, uncomplicated; E11.9 Type 2 diabetes mellitus without complications; G89.29 Other chronic pain; E78.00 Pure hypercholesterolemia, unspecified
CPT/HCPCS: 71020; 99284

== ENCOUNTER 2016-07-18 21:32 | Emergency (ER) | payer SELFPAY ==
[~2016-07-18] VITALS: Ht 165.1 cm; Wt 112.9 kg
[~2016-07-18 21:32] MED LIST changes: +PROAIR RESPICL90 MCG IH
[2016-07-18 21:40] VITALS: BP 148/87
[2016-07-18] MEDS ORDERED: CEPH500T PO (22:04)
--- NOTE | 2016-07-18 22:04 | PHYS DOC ---
Past Medical History Past Medical History: Asthma, Bronchitis, Diabetes-Type II, High Cholesterol Additional Past Medical Histor: CHRONIC PAIN Past Surgical History: Hysterectomy Additional Past Surgical Histo: ABD HERNIA, EYE SURGERY, CARPAL TUNNEL RELEASE : R Alcohol Use: None Drug Use: None Adult General Chief Complaint Chief Complaint: SKIN PROBLEM [facility] HPI Patient is a 56 year old female presents to the emergency department stating that she has an area on the right side of her chin that is very red and painful and hard. She states that she noticed it this morning when she got up. She states that she has not taken anything for the pain and discomfort. She denies any drainage or discharge coming from the site. She states her immunizations are up-to-date. Patient denies any fever, chills or any nausea or vomiting Review of Systems Review of Systems Constitutional: Denies fever or chills [] Eyes: Denies change in visual acuity, redness, or eye pain [] HENT: Denies nasal congestion or sore throat [] Respiratory: Denies cough or shortness of breath [] Cardiovascular: No additional information not addressed in HPI [] GI: Denies abdominal pain, nausea, vomiting, bloody stools or diarrhea [] : Denies dysuria or hematuria [] Musculoskeletal: Denies back pain or joint pain [] Integument: Denies rash or skin lesions. Complaint of pain and discomfort to the right chin Neurologic: Denies headache, focal weakness or sensory changes [] Endocrine: Denies polyuria or polydipsia [] Allergies Allergies Allergies Coded Allergies Type Severity Reaction Last Updated Verified No Known Drug Allergies 03/16/13 No Physical Exam Physical Exam Constitutional: Well developed, well nourished, no acute distress, non-toxic appearance. [] HENT: Normocephalic, atraumatic, bilateral external ears normal, oropharynx moist, no oral exudates, nose normal. [] Eyes: PERRLA, EOMI, conjunctiva normal, no discharge. [] Neck: Normal range of motion, no tenderness, supple, no stridor. [] Cardiovascular:Heart rate regular rhythm, no murmur [] Lungs & Thorax: Bilateral breath sounds clear to auscultation [] Skin: Warm, dry, no erythema, no rash. Right-sided chin with a pea size area no fluctuant medication. The area is red and very tender. Back: No tenderness Extremities: No tenderness, no cyanosis, no clubbing, ROM intact, no edema. [] Neurologic: Alert and oriented X 3, normal motor function, normal sensory function, no focal deficits noted. [] Psychologic: Affect normal, judgement normal, mood normal. [] Current Patient Data Vital Signs Vital Signs Date Time Temp Pulse Resp B/P Pulse Ox O2 Delivery O2 Flow Rate FiO2 07/18/16 21:40 98.0 72 18 97 Room Air 98.0 EKG EKG [] Radiology/Procedures Radiology/Procedures [] Course & Med Decision Making Course & Med Decision Making Pertinent Labs and Imaging studies reviewed. (See chart for details) Patient was recommended to use warm moist packs to the area 4 times a day for 20 minutes at a time. Recommended Tylenol and ibuprofen for pain and discomfort. Patient will be placed on Keflex 1 tablet twice a day for the next 10 days. Recommended following up with primary care physician in next 3-5 days. Patient agrees with discharge instructions treatment regimens and follow-up recommendations. Signs symptoms to return back to emergency department been provided. [] Dragon Disclaimer Dragon Disclaimer This electronic medical record was generated, in whole or in part, using a voice recognition dictation system. Departure Departure Impression: Primary Impression: Abscess Disposition: 01 HOME, SELF-CARE Condition: STABLE Referrals: UNKNOWN PCP NAME (PCP) Patient Instructions: Abscess, [id number] Additional Instructions: Activity as tolerated. Tylenol or ibuprofen for pain and discomfort. Medications as prescribed. Warm moist packs to the chin area 4 times a day for 20 minutes at a time. Follow-up to primary care physician next 3-5 days. Return back to emergency prior signs symptoms of become worse. Scripts Cephalexin 500 Mg Tablet1 Tab PO BID #20 TAB Prov:LAURO IRELAND APRN 07/18/16 LAURO IRELAND APRN Jul 18, 2016 22:04
[2016-07-18] MEDS ORDERED: IBUPROFEN 800 MG TABLET. PO ONE (22:30)
== END 2016-07-18 22:11 | disposition home or self-care (01) ==
LOC: ER 21:33
DX: L02.01 Cutaneous abscess of face (principal); E11.9 Type 2 diabetes mellitus without complications; E78.00 Pure hypercholesterolemia, unspecified; G89.29 Other chronic pain; J45.909 Unspecified asthma, uncomplicated; Z90.710 Acquired absence of both cervix and uterus
CPT/HCPCS: 99283

== ENCOUNTER 2016-07-20 21:49 | Emergency (ER) | payer SELFPAY ==
[~2016-07-20] VITALS: Ht 165.1 cm; Wt 112.9 kg
[~2016-07-20 21:49] MED LIST changes: +CEPH500T PO
[2016-07-20 22:56] VITALS: BP 154/84
[2016-07-20] MEDS ORDERED: HYDROCODONE/APAP 5/325MG TABLET. PO ONE (23:30)
[2016-07-20] MEDS ORDERED: SMZ/TMP 800/160MG TABLET. PO ONE (23:30)
[2016-07-21] MEDS ORDERED: HYDR-971 PO (00:07)
[2016-07-21] MEDS ORDERED: SULF1TAB24 PO (00:07)
--- NOTE | 2016-07-21 00:07 | PHYS DOC ---
Past Medical History Past Medical History: Asthma, Bronchitis, Diabetes-Type II, High Cholesterol Additional Past Medical Histor: CHRONIC PAIN Past Surgical History: Hysterectomy Additional Past Surgical Histo: ABD HERNIA, EYE SURGERY, CARPAL TUNNEL RELEASE : R Alcohol Use: None Drug Use: None Adult General Chief Complaint Chief Complaint: ABSCESS HPI HPI Patient is a 56 year old female who presents with infection to her chin. Patient reports since Thursday morning she has been having redness and swelling at a spot on her right chin. She was seen that night, and prescribed cephalexin for cellulitis. She has had continued pain and redness at the site. She had taken ibuprofen for with insufficient relief. Patient does have a history of abscesses, reports that she has been on Bactrim in the past that has worked well for her. No fever. No other acute complaints. Review of Systems Review of Systems Constitutional: Denies fever or chills HENT: Redness, swelling, painful area to R chin Respiratory: Denies cough or shortness of breath Cardiovascular: Denies chest pain GI: Denies abdominal pain, nausea, vomiting, or diarrhea Musculoskeletal: Denies back pain or joint pain Neurologic: Denies headache, focal weakness or sensory changes Current Medications Current Medications Current Medications Medications (Trade) Dose Ordered Sig/Dolly Start Time Stop Time Status Last Admin Dose Admin Acetaminophen/ Hydrocodone Bitart (Lortab 5/325) 2 tab 1X ONCE 07/20/16 23:30 07/20/16 23:31 DC 07/20/16 23:29 2 TAB Neomycin/ Polymyxin/ Bacitracin (Triple Antibiotic Ointment) 1 pkt 1X ONCE 07/21/16 00:30 07/21/16 00:30 DC 07/21/16 00:26 1 PKT Trimethoprim/ Sulfamethoxazole (Bactrim Ds) 1 tab 1X ONCE 07/20/16 23:30 07/20/16 23:31 DC 07/20/16 23:29 1 TAB Allergies Allergies Allergies Coded Allergies Type Severity Reaction Last Updated Verified No Known Drug Allergies 03/16/13 No Physical Exam Physical Exam Constitutional: Well developed, well nourished, no acute distress, non-toxic appearance HENT: Normocephalic, atraumatic, bilateral external ears normal; 2cm red, raised , indurated lesion to R chin, minimal central fluctuance Neck: Normal range of motion, no stridor Cardiovascular: Heart rate normal, regular rhythm, no murmur Lungs & Thorax: Bilateral breath sounds clear to auscultation Abdomen: Bowel sounds normal, soft, non-distended, no TTP Skin: Warm, dry, no erythema, no rash Current Patient Data Vital Signs Vital Signs Date Time Temp Pulse Resp B/P Pulse Ox O2 Delivery O2 Flow Rate FiO2 07/20/16 23:29 20 07/20/16 22:56 98.5 80 96 Room Air 98.5 EKG EKG [] Radiology/Procedures Radiology/Procedures [] Course & Med Decision Making Course & Med Decision Making Pertinent Labs and Imaging studies reviewed. (See chart for details) Patient is 56-year-old female who presents with infection to her chin. Appears to be localized, no signs of systemic infection. Oral pain medication and dose of Bactrim ordered while in the emergency department. I unroofed a spot in the center who had come to a head, with minimal pus expressed. Unable to drain any further. Will plan discharge home with prescription for Bactrim and pain meds, instructions for follow-up, return precautions. Dragon Disclaimer Dragon Disclaimer This electronic medical record was generated, in whole or in part, using a voice recognition dictation system. Departure Departure Impression: Primary Impression: Cellulitis of chin Disposition: 01 HOME, SELF-CARE Condition: STABLE Referrals: UNKNOWN PCP NAME (PCP) Patient Instructions: Cellulitis Additional Instructions: Thank you for allowing us to provide care today in the Emergency Department. Take the provided medication as directed. Use caution when taking the pain medication as it can make you drowsy. Schedule a follow up appointment with your primary care doctor. Return promptly to the Emergency Department if you develop any new or concerning symptoms as we discussed. Scripts Hydrocodone/Apap 5-325 ([place] 5-325 Tablet)1 Each Tablet1 Tab PO PRN Q6HRS PRN PAIN #12 TAB Prov:CHARLOTTE ROJAS MD 07/21/16 Sulfamethoxazole/Trimethoprim (Bactrim Ds Tablet)1 Each Tablet1 Tab PO BID #14 TAB Prov:CHARLOTTE ROJAS MD 07/21/16 CHARLOTTE ROJAS MD Jul 21, 2016 00:07
[2016-07-21] MEDS ORDERED: NEOMY/BACITR/POLYMYXIN OINT PACKET. TP ONE (00:30)
== END 2016-07-21 00:27 | disposition home or self-care (01) ==
LOC: ER 21:49
DX: L03.211 Cellulitis of face (principal); E11.9 Type 2 diabetes mellitus without complications; E78.00 Pure hypercholesterolemia, unspecified; J45.909 Unspecified asthma, uncomplicated; G89.29 Other chronic pain; Z90.710 Acquired absence of both cervix and uterus; Z98.890 Other specified postprocedural states
CPT/HCPCS: 99284

== ENCOUNTER 2017-01-04 14:48 | Emergency (ER) | payer SELFPAY ==
[~2017-01-04 14:48] MED LIST changes: +EZET1TAB30 PO; -EZET1TAB4 PO; -NAPR500T3 PO; +NAPR500T4 PO; +SULF-143 PO; +SULF1TAB24 PO; -SULF1TAB3 PO
[2017-01-04 15:31] VITALS: BP 144/78
--- NOTE | 2017-01-04 15:39 | PHYS DOC ---
Past Medical History Past Medical History: Asthma, Bronchitis, Diabetes-Type II, High Cholesterol Additional Past Medical Histor: CHRONIC PAIN Past Surgical History: Hysterectomy Additional Past Surgical Histo: ABD HERNIA, EYE SURGERY, CARPAL TUNNEL RELEASE : R Alcohol Use: None Drug Use: None Adult General Chief Complaint Chief Complaint: HAND PROBLEM HPI HPI Patient is a 56 year old female with history of high cholesterol, diabetes type II who presents today with mild right hand pain that she states began a week ago. Patient states the pain is on the pinky finger and radiates into her hand. Patient denies any trauma. She states she could not even flex her fingers due to the pain. Review of Systems Review of Systems Constitutional: Denies fever or chills [] Musculoskeletal: Right hand pain Integument: Denies rash or skin lesions [] Neurologic: Denies headache, focal weakness or sensory changes [] Allergies Allergies Allergies Coded Allergies Type Severity Reaction Last Updated Verified No Known Drug Allergies 03/16/13 No Physical Exam Physical Exam Constitutional: Well developed, well nourished, no acute distress, non-toxic appearance. [] Skin: Warm, dry, no erythema, no rash. [] Back: No tenderness, no CVA tenderness. [] Extremities: Right hand with no obvious deformity. No edema or ecchymosis noted to the right hand. Full range of motion to the right hand and fingers. +2 right radial pulse. Cap refill less than 2 seconds the right fingers. Neurologic: Alert and oriented X 3, normal motor function, normal sensory function, no focal deficits noted. [] Psychologic: Affect normal, judgement normal, mood normal. [] Current Patient Data Vital Signs Vital Signs Date Time Temp Pulse Resp B/P (MAP) Pulse Ox O2 Delivery O2 Flow Rate FiO2 01/04/17 15:31 98.6 89 18 96 Room Air 98.6 EKG EKG [] Radiology/Procedures Radiology/Procedures [] Course & Med Decision Making Course & Med Decision Making Pertinent Labs and Imaging studies reviewed. (See chart for details) Patient is in the ED with right hand pain no known injury. Most of the pain is on the right pinky finger. Right hand x-rays interpreted by Dr. Johnson were negative for any acute findings. Patient was provided eloisa wrap in the applied by the assistive technology specialist, neurovascular exam is intact. ice elevation encouraged f/u with Ortho in one week. Dragon Disclaimer Dragon Disclaimer This electronic medical record was generated, in whole or in part, using a voice recognition dictation system. Departure Departure Impression: Primary Impression: Right hand pain Disposition: 01 HOME, SELF-CARE Condition: STABLE Referrals: UNKNOWN PCP NAME (PCP) LORIN ABDI MD follow up in one week Patient Instructions: Musculoskeletal Pain Additional Instructions: You have right hand pain. Your xrays are negative for any acute findings. Ice elevate the affected area. Follow-up with the provided orthopedic doctor in one week if pain continues. Do not drive or operate machinery on the pain medicines. Scripts Tramadol Hcl (ULTRAM) 50 Mg Tablet 1 TAB PO Q6HRS, #30 TAB Prov: CHIDI ROSAS APRN 01/04/17 CHIDI ROSAS APRN Jan 04, 2017 15:39
--- NOTE | 2017-01-04 16:17 | RAD ---
Right hand 3 views. History: Pain 3 views were taken of the right hand. There is evidence of arthritis at the distal interphalangeal joints with mild joint space narrowing and slight spurring. There is mild deformity of the distal radius probably an old fracture. There is no acute fracture or other acute osseous abnormality. Impression: 1. 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 2. No acute fracture.
[2017-01-04] MEDS ORDERED: TRAM-48 PO (16:18)
== END 2017-01-04 16:27 | disposition home or self-care (01) ==
LOC: ER 14:48
DX: M79.641 Pain in right hand (principal); M79.644 Pain in right finger(s); J45.909 Unspecified asthma, uncomplicated; E11.9 Type 2 diabetes mellitus without complications; E78.00 Pure hypercholesterolemia, unspecified; G89.29 Other chronic pain
CPT/HCPCS: 73130; 99284

== ENCOUNTER 2017-02-15 20:51 | Emergency (ER) | payer SELFPAY ==
[~2017-02-15] VITALS: Ht 165.1 cm; Wt 108.9 kg
[~2017-02-15 20:51] MED LIST changes: +IBUP-1060 PO; +TRAM-48 PO
[2017-02-15 20:55] VITALS: BP 136/76
[2017-02-15] MEDS ORDERED: AMOX1TAB61 PO (21:53)
[2017-02-15] MEDS ORDERED: PRED20TA PO (21:53)
[2017-02-15] MEDS ORDERED: BENZ100C PO (21:53)
--- NOTE | 2017-02-15 21:54 | PHYS DOC ---
Past Medical History Past Medical History: Asthma, Bronchitis, Diabetes-Type II, High Cholesterol Additional Past Medical Histor: CHRONIC PAIN Past Surgical History: Hysterectomy Additional Past Surgical Histo: ABD HERNIA, EYE SURGERY, CARPAL TUNNEL RELEASE : R Additional Information: 0.5 PPD Alcohol Use: None Drug Use: None Adult General Chief Complaint Chief Complaint: COUGH HPI HPI Patient is a 57 year old female presents to the emergency room saying that she' s had a cough and congestion since . She states she's also been having pain in her left ear. Patient states that she believes she's been having a fever however has not taken her temperature. She states that she continues to smoke at home. She does have inhalers at home in which she's been using. She states she's had a cough this been nonproductive. Review of Systems Review of Systems Constitutional: Denies fever or chills [] Eyes: Denies change in visual acuity, redness, or eye pain [] HENT: Denies nasal congestion C/o sore throat [] Respiratory: cough denies shortness of breath [] Cardiovascular: No additional information not addressed in HPI [] GI: Denies abdominal pain, nausea, vomiting, bloody stools or diarrhea [] : Denies dysuria or hematuria [] Musculoskeletal: Denies back pain or joint pain [] Integument: Denies rash or skin lesions [] Neurologic: Denies headache, focal weakness or sensory changes [] Endocrine: Denies polyuria or polydipsia [] All other systems were reviewed and found to be within normal limits, except as documented in this note. Current Medications Current Medications Current Medications Medications (Trade) Dose Ordered Sig/Dolly Start Time Stop Time Status Last Admin Dose Admin Albuterol Sulfate (Ventolin Neb Soln) 2.5 mg 1X ONCE 02/15/17 22:00 02/15/17 22:01 02/15/17 21:36 2.5 MG Allergies Allergies Allergies Coded Allergies Type Severity Reaction Last Updated Verified No Known Drug Allergies 03/16/13 No Physical Exam Physical Exam Constitutional: Well developed, well nourished, no acute distress, non-toxic appearance. [] HENT: Normocephalic, atraumatic, bilateral external ears normal, oropharynx moist, no oral exudates, nose normal. Bilateral tympanic membranes appear to be normal. No anterior cervical adenopathy noted. Postnasal drip noted no erythematous no exudate. Eyes: PERRLA, EOMI, conjunctiva normal, no discharge. [] Neck: Normal range of motion, no tenderness, supple, no stridor. [] Cardiovascular:Heart rate regular rhythm, no murmur [] Lungs & Thorax: Bilateral breath sounds clear to auscultation patient was noted to have a nonproductive cough. Skin: Warm, dry, no erythema, no rash. [] Extremities: No tenderness, no cyanosis, no clubbing, ROM intact, no edema. [] Neurologic: Alert and oriented X 3, normal motor function, normal sensory function, no focal deficits noted. [] Psychologic: Affect normal, judgement normal, mood normal. [] Current Patient Data Vital Signs Vital Signs Date Time Temp Pulse Resp B/P (MAP) Pulse Ox O2 Delivery O2 Flow Rate FiO2 02/15/17 21:37 96 Room Air 02/15/17 20:55 97.3 72 20 136/76 (96) 97.3 EKG EKG [] Radiology/Procedures Radiology/Procedures [] Course & Med Decision Making Course & Med Decision Making Pertinent Labs and Imaging studies reviewed. (See chart for details) Chest x-ray was read by Dr. Johnson as having by basilar atelectasis. Patient will be placed on Augmentin with prednisone. Recommend she continue to use her respiratory inhalers at home. Recommend that she stop smoking. Patient was also recommended to follow-up with a primary care physician X3 to 5 days. She'll be provided with Tessalon Perles to help with the cough. I've spoken with the patient and/or caregivers. I've explained the patient's condition, diagnosis and treatment plan based on information available to me at this time. I've answered the patient's and/or caregivers questions and addressed any concerns. The patient and/or caregivers have a good understanding the patient's diagnosis, condition and treatment plan as can be expected at this point. Vital signs have been stabilized. The patient's condition is stable for discharge from the emergency department. The patient will pursue further outpatient evaluation with her primary care provider or other designated consulting physician as outlined in the discharge instructions. Patient and/or caregivers are agreeable to this plan of care and follow-up instructions have been explained in detail. The patient and/or caregivers have received these instructions in written format and expressed understanding of these discharge instructions. The patient and her caregivers are aware that if any significant change in condition or worsening of symptoms should prompt him to immediately return to this of the closest emergency department. If an emergent department is not readily available I would encourage him to call 911. Josue Disclaimer Josue Disclaimer This electronic medical record was generated, in whole or in part, using a voice recognition dictation system. Departure Departure Impression: Primary Impression: Pneumonia Additional Impression: Smokes cigarettes Disposition: HOME, SELF-CARE Condition: STABLE Referrals: NO PCP (PCP) Patient Instructions: Pneumonia, Adult, Smoking Cessation, Tips For Success Additional Instructions: Activity as tolerated. Medications as prescribed. Continue to use her inhalers at home and which you have prescribed. Stop smoking will also help decrease your respiratory infections. Follow-up with her primary care physician X3 to 5 days. Return back tumors present symptoms become worse. Scripts Benzonatate (TESSALON PERLE) 100 Mg Capsule 1 CAP PO TID, #30 CAP Prov: LAURO IRELAND APRN 02/15/17 Prednisone (PREDNISONE) 20 Mg Tablet 40 MG PO DAILY for 7 Days, #14 TAB Prov: LAURO IRELAND APRN 02/15/17 Amoxicillin/Potassium Clav (AUGMENTIN 875-125 TABLET) 1 Each Tablet 1 TAB PO BID, #20 TAB Prov: LAURO IRELAND APRN 02/15/17 Problem Qualifiers Primary Impression: Pneumonia Pneumonia type: due to unspecified organism Laterality: unspecified laterality Lung location: unspecified part of lung Qualified Codes: J18.9 - Pneumonia, unspecified organism LAURO IRELAND APRN Feb 15, 2017 21:54
[2017-02-15] MEDS ORDERED: ALBUTEROL SULFATE 2.5 MG/3 ML NEBU. NEB ONE (22:00)
--- NOTE | 2017-02-16 07:35 | RAD ---
Chest, 2 views, 02/25/2017: History: Cough and congestion Comparison is made to a study from 06/13/2016. The heart size and pulmonary vascularity are normal. No pulmonary infiltrates are seen. There is no evidence of pleural fluid. Moderate spurring is present in the spine. IMPRESSION: No acute cardiopulmonary abnormality is detected.
== END 2017-02-15 22:00 | disposition home or self-care (01) ==
LOC: ER 20:51
DX: J18.9 Pneumonia, unspecified organism (principal); F17.210 Nicotine dependence, cigarettes, uncomplicated; J45.909 Unspecified asthma, uncomplicated; E78.00 Pure hypercholesterolemia, unspecified; E11.9 Type 2 diabetes mellitus without complications; G89.29 Other chronic pain
CPT/HCPCS: 71020; 94250; 94640; 99284; J7613

== ENCOUNTER → 2017-05-04 | Outpatient (CLI) | payer OTHER | END | disposition home or self-care (01) | LOC: KCIC MRI 07:40 | DX: I73.9 Peripheral vascular disease, unspecified (principal) | CPT/HCPCS: 70551 ==

== ENCOUNTER 2017-06-04 07:29 | Emergency (ER) | payer OTHER ==
[2017-06-04] MEDS: predniSONE 20 MG TABLET PO (08:00)
[2017-06-04 08:24] LABS: INFLUENZA A PATIENT NEGATIVE (NEGATIVE)
[2017-06-04 08:26] LABS: INFLUENZA B PATIENT POSITIVE (NEGATIVE); OBC FLU VALID
[2017-06-04] MEDS: IPRATRPIUM/ALBUTEROL 0.5/2.5MG 3 ML NEBU. NEB (08:30)
[2017-06-04] MEDS: HYDROcodone/APAP 5/325MG 1 TAB TABLET PO (09:08)
== END 2017-06-04 09:15 | disposition home or self-care (01) ==
LOC: ER 07:29
DX: J10.1 Influenza due to other identified influenza virus with other respiratory manifestations (principal); E78.00 Pure hypercholesterolemia, unspecified; E11.9 Type 2 diabetes mellitus without complications; G89.29 Other chronic pain; Z90.710 Acquired absence of both cervix and uterus
CPT/HCPCS: 71046; 87804; 87804-59; 94640; 99284; 99285-25; J7512; J7620

== ENCOUNTER 2017-08-28 20:06 | Emergency (ER) | payer OTHER | END 2017-08-28 20:45 | disposition home or self-care (01) | LOC: ER 20:06 | DX: L03.317 Cellulitis of buttock (principal); E78.00 Pure hypercholesterolemia, unspecified; E11.9 Type 2 diabetes mellitus without complications; G89.29 Other chronic pain; J44.9 Chronic obstructive pulmonary disease, unspecified; J45.909 Unspecified asthma, uncomplicated; Z88.5 Allergy status to narcotic agent | CPT/HCPCS: 99283 ==

== ENCOUNTER → 2017-09-03 | Outpatient (CLI) | payer OTHER ==
[~2017-09-03] MED LIST changes: -ACET10DR4 OT; -AMOX1TAB61 PO; -BENZ100C PO; -CEPH500T PO; +CONTRAST GIVEN. MC; -CYCL10TA2 PO; -EZET1TAB30 PO; -FURO20TA3 PO; -GABA600T PO; -GLIP10TA13 PO; +HEPARIN for IV BOLUS 10,000 UNIT/10 ML VIAL.; -HYDR-2678 PO; -HYDR-971 PO; -HYDR25TA9 PO; -IBUP-1007 PO; -IBUP-1060 PO; +IODIXANOL 320 MG/ML 100 ML VIAL.; +IV 1/2 NORMAL SALINE 1,000 ML IV; +LIDOCAINE 2% 20 ML VIAL.; -METF500T4 PO; +MIDAZOLAM HCL/PF 2 MG/2 ML VIAL.; -NAPR500T4 PO; +NITROGLYCERIN 200 MCG/2 ML SYRINGE FOR CATH/VASC LAB.; +NITROGLYCERIN SUBLINGUAL 0.4 MG BOTTLE OF 25. SL; -NORT25CA PO; -NYST15CR2 TP; -PROAIR RESPICL90 MCG IH; -SULF-143 PO; -SULF1TAB24 PO; -TRAM-48 PO; -TRAM50TA PO; -TRAZ50TA15 PO; +VERAPAMIL 5 MG/2 ML VIAL.; +fentaNYL PF VIAL 100 MCG/2 ML VIAL; -hydrocodone
[2017-09-03 08:28] LABS: HEMATOCRIT 42.8 % (36.0-47.0); HEMOGLOBIN 14.5 g/dL (12.0-15.5); MEAN CORPUSCULAR HEMOGLOBIN 28 pg (25-35); MEAN CORPUSCULAR HGB CONC 34 g/dL (31-37); MEAN CORPUSCULAR VOLUME 82 fL (79-100); PLATELET COUNT 196 x10^3/uL (140-400); RED BLOOD COUNT 5.21 x10^6/uL (3.50-5.40); RED CELL DISTRIBUTION WIDTH 14.3 % (11.5-14.5); WHITE BLOOD COUNT 10.6 x10^3/uL (4.0-11.0)
[2017-09-03 08:37] LABS: PROTHROMBIN TIME PATIENT 12.6 SEC (11.7-14.0)
[2017-09-03 08:48] LABS: ANION GAP 10 (6-14); BLOOD UREA NITROGEN 14 mg/dL (7-20); CALCIUM 9.9 mg/dL (8.5-10.1); CARBON DIOXIDE 29 mmol/L (21-32); CHLORIDE 100 mmol/L (98-107); CREATININE 1.1 mg/dL (0.6-1.0); GLUCOSE 134 mg/dL (70-99); POTASSIUM 4.7 mmol/L (3.5-5.1); SODIUM 139 mmol/L (136-145)
[2017-09-03] MEDS: MIDAZOLAM HCL/PF 2 MG/2 ML VIAL. IV (11:47)
[2017-09-03] MEDS: LIDOCAINE 2% 20 ML VIAL. IJ (11:47)
[2017-09-03] MEDS: NITROGLYCERIN 200 MCG/2 ML SYRINGE FOR CATH/VASC LAB. IART (11:47)
[2017-09-03] MEDS: IODIXANOL 320 MG/ML 100 ML VIAL. IART (11:47)
[2017-09-03] MEDS: fentaNYL PF VIAL 100 MCG/2 ML VIAL IV (11:48)
[2017-09-03] MEDS: VERAPAMIL 5 MG/2 ML VIAL. IART (11:48)
[2017-09-03] MEDS: HEPARIN for IV BOLUS 10,000 UNIT/10 ML VIAL. IART (11:49)
== END ==
LOC: CCL 07:57
DX: R07.9 Chest pain, unspecified (principal); R94.39 Abnormal result of other cardiovascular function study; J45.909 Unspecified asthma, uncomplicated; K21.9 Gastro-esophageal reflux disease without esophagitis; E11.9 Type 2 diabetes mellitus without complications; F17.210 Nicotine dependence, cigarettes, uncomplicated; J03.90 Acute tonsillitis, unspecified; Z98.890 Other specified postprocedural states; Z90.710 Acquired absence of both cervix and uterus
CPT/HCPCS: 36415; 80048; 85027; 85610; 93458; 99152; C1769; C1892; J1644; J2250; J3010; J3490

== ENCOUNTER → 2017-09-16 | Outpatient (CLI) | payer OTHER | END | disposition home or self-care (01) | LOC: KCIC DEXA 14:40 | DX: Z12.31 Encounter for screening mammogram for malignant neoplasm of breast (principal); Z13.820 Encounter for screening for osteoporosis; E11.9 Type 2 diabetes mellitus without complications; Z78.0 Asymptomatic menopausal state | CPT/HCPCS: 77067; 77080 ==

== ENCOUNTER → 2017-09-22 | Outpatient (CLI) | payer OTHER | END | disposition home or self-care (01) | LOC: KCIC US 11:01 | DX: R92.8 Other abnormal and inconclusive findings on diagnostic imaging of breast (principal) | CPT/HCPCS: 76641 ==

== ENCOUNTER → 2017-09-30 | Day surgery (SDC) | payer OTHER ==
[~2017-09-30] MED LIST changes: -CONTRAST GIVEN. MC; -HEPARIN for IV BOLUS 10,000 UNIT/10 ML VIAL.; -IODIXANOL 320 MG/ML 100 ML VIAL.; -IV 1/2 NORMAL SALINE 1,000 ML IV; -LIDOCAINE 2% 20 ML VIAL.; +LIDOCAINE 2% PF Vial for OR 5 ML VIAL.; -MIDAZOLAM HCL/PF 2 MG/2 ML VIAL.; -NITROGLYCERIN 200 MCG/2 ML SYRINGE FOR CATH/VASC LAB.; -NITROGLYCERIN SUBLINGUAL 0.4 MG BOTTLE OF 25. SL; +PROPOFOL 40 ML IV; -VERAPAMIL 5 MG/2 ML VIAL.; -fentaNYL PF VIAL 100 MCG/2 ML VIAL
[2017-09-30] MEDS: IV RINGERS,LACTATED 1000ML 1,000 ML IV (07:30)
[2017-09-30 07:33] LABS: POC GLUCOSE 126 mg/dL (70-99)
== END | disposition home or self-care (01) ==
LOC: ENDOS 07:03
DX: Z12.11 Encounter for screening for malignant neoplasm of colon (principal); D12.0 Benign neoplasm of cecum; D12.3 Benign neoplasm of transverse colon; K64.0 First degree hemorrhoids; J44.9 Chronic obstructive pulmonary disease, unspecified; E11.9 Type 2 diabetes mellitus without complications; E78.00 Pure hypercholesterolemia, unspecified; I10 Essential (primary) hypertension; K21.9 Gastro-esophageal reflux disease without esophagitis; Z87.01 Personal history of pneumonia (recurrent); Z88.8 Allergy status to other drugs, medicaments and biological substances; Z79.899 Other long term (current) drug therapy; Z79.84 Long term (current) use of oral hypoglycemic drugs; Z79.82 Long term (current) use of aspirin; Z82.49 Family history of ischemic heart disease and other diseases of the circulatory system; F17.210 Nicotine dependence, cigarettes, uncomplicated; Z90.710 Acquired absence of both cervix and uterus; Z98.890 Other specified postprocedural states
CPT/HCPCS: 45380; 45385; 82962; 88305; J2001; J2704

== ENCOUNTER → 2017-10-08 | Outpatient (CLI) | payer OTHER | END | disposition home or self-care (01) | LOC: US 08:57 | DX: N63.21 Unspecified lump in the left breast, upper outer quadrant (principal); I10 Essential (primary) hypertension; E78.5 Hyperlipidemia, unspecified; E78.00 Pure hypercholesterolemia, unspecified; J44.1 Chronic obstructive pulmonary disease with (acute) exacerbation; K21.9 Gastro-esophageal reflux disease without esophagitis; Z87.891 Personal history of nicotine dependence | CPT/HCPCS: 76641 ==

== ENCOUNTER 2017-10-12 14:15 | Emergency (ER) | payer OTHER ==
[2017-10-12] MEDS: PHENOL ORAL SPRAY 177ML BOTTLE. PO (14:48)
== END 2017-10-12 14:52 | disposition home or self-care (01) ==
LOC: ER 14:52
DX: B37.0 Candidal stomatitis (principal); B37.81 Candidal esophagitis; E11.9 Type 2 diabetes mellitus without complications; J44.9 Chronic obstructive pulmonary disease, unspecified; E78.00 Pure hypercholesterolemia, unspecified; J45.909 Unspecified asthma, uncomplicated; G89.29 Other chronic pain; Z88.5 Allergy status to narcotic agent
CPT/HCPCS: 99283

== ENCOUNTER → 2017-10-16 | Outpatient (CLI) | payer OTHER ==
[2017-10-16 13:33] LABS: GFR 56.9
[2017-10-16] MEDS: GADOBUTROL 10 MMOL/10 ML VIAL IV (14:21)
== END | disposition home or self-care (01) ==
LOC: MRI 12:37
DX: M16.12 Unilateral primary osteoarthritis, left hip (principal); M79.9 Soft tissue disorder, unspecified
CPT/HCPCS: 36415; 73723; 82565; A9585

== ENCOUNTER → 2017-10-30 | Day surgery (SDC) | payer OTHER ==
[2017-10-30] MEDS: LIDOCAINE 1%/EPI 1:100,000 20 ML VIAL. INJ (10:54)
== END | disposition home or self-care (01) ==
LOC: SURG 08:57
DX: L72.0 Epidermal cyst (principal); I10 Essential (primary) hypertension; E78.00 Pure hypercholesterolemia, unspecified; E11.9 Type 2 diabetes mellitus without complications; J44.1 Chronic obstructive pulmonary disease with (acute) exacerbation; K21.9 Gastro-esophageal reflux disease without esophagitis; Z87.01 Personal history of pneumonia (recurrent); Z90.710 Acquired absence of both cervix and uterus; Z88.8 Allergy status to other drugs, medicaments and biological substances; Z98.890 Other specified postprocedural states; Z79.82 Long term (current) use of aspirin; Z79.899 Other long term (current) drug therapy; Z79.84 Long term (current) use of oral hypoglycemic drugs; M16.12 Unilateral primary osteoarthritis, left hip; Z88.5 Allergy status to narcotic agent; Z87.891 Personal history of nicotine dependence; Z82.49 Family history of ischemic heart disease and other diseases of the circulatory system
CPT/HCPCS: 19120; 88304; J3490

== ENCOUNTER 2017-11-01 08:41 | Emergency (ER) | payer OTHER | END 2017-11-01 09:37 | disposition home or self-care (01) | LOC: ER 08:41 | DX: J06.9 Acute upper respiratory infection, unspecified (principal); E78.00 Pure hypercholesterolemia, unspecified; J44.9 Chronic obstructive pulmonary disease, unspecified; E11.9 Type 2 diabetes mellitus without complications; G89.29 Other chronic pain; Z88.5 Allergy status to narcotic agent | CPT/HCPCS: 71046; 99284 ==

== ENCOUNTER 2017-12-24 08:26 | Emergency (ER) | payer OTHER ==
[~2017-12-24] VITALS: Ht 165.1 cm; Wt 106.6 kg
[~2017-12-24 08:26] MED LIST changes: +ACET10DR5 OT; +AMOX1TAB61 PO; +ASPI81TA59 PO; +BENZ100C PO; +BUPR150T8 PO; +CEPH500T PO; +CYCL10TA2 PO; +DICL50TA4 PO; +EZET1TAB30 PO; +FURO20TA3 PO; +GABA600T PO; +GLIP10TA13 PO; +HYDR-2678 PO; +HYDR-971 PO; +HYDR25TA9 PO; +IBUP-1007 PO; +IBUP-1060 PO; -LIDOCAINE 2% PF Vial for OR 5 ML VIAL.; +METF500T16 PO; +METO25TA4 PO; +NAPR-514 PO; +NORT25CA PO; +NYST100054 PO; +NYST15CR2 TP; +OSEL75CA PO; +PANT20TA2 PO; +PRED20TA PO; +PROAIR RESPICL90 MCG IH; -PROPOFOL 40 ML IV; +SULF-143 PO; +SULF1TAB24 PO; +TRAM-48 PO; +TRAM50TA PO; +TRAZ-85 PO; +hydrocodone
--- NOTE | 2017-12-24 09:12 | RAD ---
EXAM: Chest, 2 views. HISTORY: Cough. COMPARISON: 11/01/2017 FINDINGS: 2 views of the chest are obtained. There is stable diffuse increased interstitial opacity. This is likely due to chronic interstitial change. There is no consolidation, pleural effusion or pneumothorax. The heart is normal in size. IMPRESSION: Stable suspected chronic interstitial changes. No acute pulmonary finding. Electronically signed by: Charlotte Maldonado MD (12/24/2017 9:08 AM) [facility]
[2017-12-24 09:27] LABS: BILIRUBIN,URINE NEGATIVE (NEG); CLARITY,URINE CLOUDY; COLOR,URINE YELLOW; NITRITE,URINE POSITIVE (NEG); PH,URINE 5.5; PROTEIN,URINE 30 mg/dL (NEG-TRACE); UROBILINOGEN,URINE 0.2 mg/dL (0.2 mg/dL)
[2017-12-24 09:29] LABS: BACTERIA,URINE MANY /HPF (0-FEW); WBC,URINE >40 /HPF (0-4)
--- NOTE | 2017-12-24 09:57 | PHYS DOC ---
Past Medical History Past Medical History: Asthma, Bronchitis, COPD, Diabetes-Type II, High Cholesterol Additional Past Medical Histor: CHRONIC PAIN Past Surgical History: Hysterectomy Additional Past Surgical Histo: ABD HERNIA, EYE SURGERY, CARPAL TUNNEL RELEASE : R Additional Information: 04/07 ppd Alcohol Use: None Drug Use: None Adult General Chief Complaint Chief Complaint: PAIN ON URINATION [facility] HPI Patient is a 57 year old female with history of COPD, current smoker, arthritis , diabetes, hypertension, who presents today complaining of a productive cough with nasal congestion for 3 days as well as dysuria. Patient denies any fever. Denies any hematuria. Denies any nausea vomiting. Review of Systems Review of Systems Constitutional: Denies fever or chills [] Eyes: Denies change in visual acuity, redness, or eye pain [] HENT: Reports nasal congestion, denies sore throat [] Respiratory: Reports cough, denies shortness of breath [] Cardiovascular: No additional information not addressed in HPI [] GI: Denies abdominal pain, nausea, vomiting, bloody stools or diarrhea [] : Reports dysuria, denies hematuria [] Musculoskeletal: Denies back pain or joint pain [] Integument: Denies rash or skin lesions [] Neurologic: Denies headache, focal weakness or sensory changes [] All other systems were reviewed and found to be within normal limits, except as documented in this note. Allergies Allergies Allergies Coded Allergies Type Severity Reaction Last Updated Verified prednisone Adverse Reaction Mild "It upsets my stomach." 10/30/17 Yes Physical Exam Physical Exam Constitutional: Well developed, well nourished, no acute distress, non-toxic appearance. [] HENT: Normocephalic, atraumatic, bilateral external ears normal, oropharynx moist, no oral exudates, nose normal. [] Eyes: PERRLA, EOMI, conjunctiva normal, no discharge. [] Neck: Normal range of motion, no tenderness, supple, no stridor. [] Cardiovascular:Heart rate regular rhythm, no murmur [] Lungs & Thorax: Bilateral breath sounds clear to auscultation [] Abdomen: Bowel sounds normal, soft, no tenderness, no masses, no pulsatile masses. [] Skin: Warm, dry, no erythema, no rash. [] Back: No tenderness, no CVA tenderness. [] Extremities: No tenderness, no cyanosis, no clubbing, ROM intact, no edema. [] Neurologic: Alert and oriented X 3, normal motor function, normal sensory function, no focal deficits noted. [] Psychologic: Affect normal, judgement normal, mood normal. [] Current Patient Data Vital Signs Vital Signs Date Time Temp Pulse Resp B/P (MAP) Pulse Ox O2 Delivery O2 Flow Rate FiO2 12/24/17 08:39 98.5 74 24 151/78 (102) 98 98.5 Lab Values Laboratory Tests Test 12/24/17 07:50 Urine Collection Type Unknown Urine Color Yellow Urine Clarity Cloudy Urine pH 5.5 Urine Specific [place] 1.020 Urine Protein 30 mg/dL (NEG-TRACE) Urine Glucose (UA) Negative mg/dL (NEG) Urine Ketones (Stick) Negative mg/dL (NEG) Urine Blood Large (NEG) Urine Nitrite Positive (NEG) Urine Bilirubin Negative (NEG) Urine Urobilinogen Dipstick 0.2 mg/dL (0.2 mg/dL) Urine Leukocyte Esterase Large (NEG) Urine RBC 6-10 /HPF (0-2) Urine WBC >40 /HPF (0-4) Urine Bacteria Many /HPF (0-FEW) EKG EKG [] Radiology/Procedures Radiology/Procedures [] Course & Med Decision Making Course & Med Decision Making Pertinent Labs and Imaging studies reviewed. (See chart for details) This is a 57-year-old female patient who presents today complaining of dysuria and a productive cough for 3 days. No fever. Positive for UTI. Chest x-ray negative for any acute findings, patient is a smoker, she was encouraged to consider smoking cessation. She was discharged with albuterol inhaler and Tessalon Perles for her cough. She was discharged with Cipro for UTI. She is to follow-up with her own PCP in one week. Instructed to push fluids. Also given prescription for Pyridium. Dragon Disclaimer Dragon Disclaimer This electronic medical record was generated, in whole or in part, using a voice recognition dictation system. Departure Departure Impression: Primary Impression: UTI (urinary tract infection) Additional Impressions: Upper respiratory infection Cough Smoking addiction Disposition: HOME, SELF-CARE Condition: STABLE Referrals: GAMAL CELIS (PCP) follow up in one week Patient Instructions: Cough, Adult, Smoking Cessation, Tips For Success, Upper Respiratory Infection, Adult, Urinary Tract Infection Additional Instructions: You were evaluated in the emergency room and noted to have urinary tract infection, upper respiratory infection with a cough. Take the prescribed medications as ordered. Consider smoking cessation. Follow-up with your doctor in 1-2 weeks. Scripts Phenazopyridine Hcl (PYRIDIUM) 100 Mg Tablet 100 MG PO TID, #9 TAB Prov: CHIDI ROSAS APRN 12/24/17 Ciprofloxacin Hcl (CIPRO) 500 Mg Tablet 1 TAB PO BID, #14 TAB Prov: CHIDI ROSAS APRN 12/24/17 Benzonatate (TESSALON PERLE) 100 Mg Capsule 1 CAP PO TID, #30 CAP Prov: CHIDI ROSAS APRN 12/24/17 Albuterol Sulfate (VENTOLIN HFA INHALER) 18 Gm Hfa.aer.ad 2 PUFF INH Q4HRS for FOR ASTHMA, #1 INHALER 0 Refills Prov: CHIDI ROSAS APRN 12/24/17 Problem Qualifiers Primary Impression: UTI (urinary tract infection) Urinary tract infection type: site unspecified Hematuria presence: without hematuria Qualified Codes: N39.0 - Urinary tract infection, site not specified Additional Impressions: Upper respiratory infection URI type: unspecified URI Qualified Codes: J06.9 - Acute upper respiratory infection, unspecified CHIDI ROSAS APRN Dec 24, 2017 09:57
[2017-12-24] MEDS ORDERED: VENTOLIN HFA18 GM INH (10:14)
[2017-12-24] MEDS ORDERED: CIPR500T94 PO (10:14)
[2017-12-24] MEDS ORDERED: PHEN100T82 PO (10:14)
[2017-12-24] MEDS ORDERED: BENZ100C PO (10:14)
[2017-12-24 10:18] VITALS: BP 116/76
== END 2017-12-24 10:18 | disposition home or self-care (01) ==
LOC: ER 08:26
DX: J06.9 Acute upper respiratory infection, unspecified (principal); N39.0 Urinary tract infection, site not specified; F17.200 Nicotine dependence, unspecified, uncomplicated; J44.9 Chronic obstructive pulmonary disease, unspecified; E11.9 Type 2 diabetes mellitus without complications; E78.00 Pure hypercholesterolemia, unspecified; G89.29 Other chronic pain; Z90.710 Acquired absence of both cervix and uterus; Z88.8 Allergy status to other drugs, medicaments and biological substances
CPT/HCPCS: 71046; 81001; 99285-25

== ENCOUNTER 2018-03-06 21:31 | Inpatient (IN) | payer OTHER ==
[~2018-03-06] VITALS: Ht 157.5 cm; Wt 106.6 kg
[~2018-03-06 21:31] MED LIST changes: +CIPR500T94 PO; +HYDR-2145 PO; +HYDR-3164 PO; -HYDR-971 PO; -HYDR25TA9 PO; +PHEN100T82 PO; +VENTOLIN HFA18 GM INH
[2018-03-06] MEDS ORDERED: IV NORMAL SALINE 1000ML BAG 1,000 ML IV ONE (22:00)
[2018-03-06 22:13] LABS: BASO % 0 % (0-3); EOS # 0.1 x10^3/uL (0.0-0.7); EOS % 2 % (0-3); HEMATOCRIT 43.7 % (36.0-47.0); HEMOGLOBIN 14.9 g/dL (12.0-15.5); LYMPH # 0.7 x10^3/uL (1.0-4.8); LYMPH % 13 % (24-48); MEAN CORPUSCULAR HEMOGLOBIN 28 pg (25-35); MEAN CORPUSCULAR HGB CONC 34 g/dL (31-37); MEAN CORPUSCULAR VOLUME 82 fL (79-100); MONO # 0.2 x10^3/uL (0.0-1.1); MONO % 3 % (0-9); NEUT # 4.3 x10^3uL (1.8-7.7); NEUT % 82 % (31-73); PLATELET COUNT 189 x10^3/uL (140-400); RED BLOOD COUNT 5.33 x10^6/uL (3.50-5.40); WHITE BLOOD COUNT 5.2 x10^3/uL (4.0-11.0)
[2018-03-06] MEDS ORDERED: ONDANSETRON PF 4 MG/2 ML VIAL. IV ONE ×2 (22:15→23:30)
[2018-03-06] MEDS ORDERED: DICYCLOMINE 20 MG/2 ML AMPUL. IM ONE (22:15)
--- NOTE | 2018-03-06 22:22 | PHYS DOC ---
Past Medical History Past Medical History: Asthma, Bronchitis, COPD, Diabetes-Type II, High Cholesterol Additional Past Medical Histor: CHRONIC PAIN Past Surgical History: Hysterectomy Additional Past Surgical Histo: ABD HERNIA, EYE SURGERY, CARPAL TUNNEL RELEASE : R Alcohol Use: None Drug Use: None Adult General Chief Complaint Chief Complaint: ABDOMINAL PAIN HPI HPI 58-year-old female presents to ER via POV with complaints of diffuse upper abdominal pain which started last night and has been gradually worsening throughout today. Patient reports she had 3 episodes of vomiting since last night and diarrhea intermittently. Patient denies fever or chills, chest pain, or palpitations. Patient reports she has had decreased appetite today with minimal fluid intake so has had decreased urination denies dysuria. She reports she has had generalized fatigue today denying any focal neuro deficits. Patient reports she has chronic bilateral lower extremity swelling denies any acute change. Patient denies any recent travel, other family members with similar illness, or recent alcohol use. Patient reports she smokes half pack per day. Patient reports yesterday she felt fine up until symptoms starting late in the afternoon. Review of Systems Review of Systems Constitutional: Denies fever or chills he reports generalized fatigue Eyes: Denies change in visual acuity, redness, or eye pain [] HENT: Denies nasal congestion or sore throat [] Respiratory: Denies shortness of breath. Reports chronic cough denies productivity or acute change. Cardiovascular: Denies chest pain or palpitations GI: Denies bloody stools. Reports diffuse upper abdominal pain with N/V/D : Denies dysuria or hematuria. Reports decreased urinary output today Musculoskeletal: Denies back/neck pain or joint pain [] Integument: Denies rash or skin lesions. Reports bilateral lower extremity swelling chronic with no acute change Neurologic: Denies headache, focal weakness or sensory changes [] Endocrine: Denies polyuria or polydipsia [] All other systems were reviewed and found to be within normal limits, except as documented in this note. Current Medications Current Medications Current Medications Medications (Trade) Dose Ordered Sig/Dolly Start Time Stop Time Status Last Admin Dose Admin Dicyclomine HCl (Bentyl) 20 mg 1X ONCE 03/06/18 22:15 03/06/18 22:16 DC 03/06/18 22:12 20 MG Fentanyl Citrate (Fentanyl 2ml Vial) 50 mcg 1X ONCE 03/06/18 23:30 03/06/18 23:31 DC 03/06/18 23:33 50 MCG Info (CONTRAST GIVEN -- Rx MONITORING) 1 each PRN DAILY PRN 03/06/18 23:30 03/08/18 23:29 Iohexol (Omnipaque 300 Mg/ml) 60 ml 1X ONCE 03/06/18 23:30 03/06/18 23:31 DC 03/06/18 23:41 60 ML Ondansetron HCl (Zofran) 4 mg 1X ONCE 03/06/18 23:30 03/06/18 23:31 DC 03/06/18 23:33 4 MG Sodium Chloride 1,000 ml @ 1,000 mls/hr 1X ONCE 03/06/18 22:00 03/06/18 22:59 DC 03/06/18 22:12 1,000 MLS/HR Allergies Allergies Allergies Coded Allergies Type Severity Reaction Last Updated Verified prednisone Adverse Reaction Mild "It upsets my stomach." 10/30/17 Yes Physical Exam Physical Exam Constitutional: Well developed, well nourished, no acute distress, non-toxic appearance. [] HENT: Normocephalic, atraumatic, mucous membranes pink/dry, no oral exudates, nose normal. [] Eyes: Pupils equal, no nystagmus, conjunctiva normal, no discharge. [] Neck: Normal range of motion, no tenderness, supple, no stridor. [] Cardiovascular: Heart rate regular rhythm, no murmur [] Lungs & Thorax: Bilateral breath sounds clear to auscultation, Respirations equal and nonlabored. Occasional nonprod. cough during exam Abdomen: Bowel sounds normal, soft/obese nondistended with no rigidity, diffuse tenderness in upper abdomen with no focal area-no rebound tenderness, no masses , no pulsatile masses. [] Skin: Warm, dry, no erythema, no rash. [] Back: No tenderness, no CVA tenderness. [] Extremities: No tenderness, no cyanosis, no clubbing, ROM intact, bilateral 1-2 + nonpitting edema. 2+ pedal/dorsal pedis bilateral equal Neurologic: Alert and oriented X 3, normal motor function, normal sensory function, no focal deficits noted. [] Psychologic: Affect normal, judgement normal, mood normal. [] Current Patient Data Vital Signs Vital Signs Date Time Temp Pulse Resp B/P (MAP) Pulse Ox O2 Delivery O2 Flow Rate FiO2 03/06/18 23:33 Room Air 03/06/18 21:48 98.6 86 16 158/95 (116) 95 98.6 Lab Values Laboratory Tests Test 03/06/18 22:04 03/06/18 22:58 White Blood Count 5.2 x10^3/uL (4.0-11.0) Red Blood Count 5.33 x10^6/uL (3.50-5.40) Hemoglobin 14.9 g/dL (12.0-15.5) Hematocrit 43.7 % (36.0-47.0) Mean Corpuscular Volume 82 fL (79-100) Mean Corpuscular Hemoglobin 28 pg (25-35) Mean Corpuscular Hemoglobin Concent 34 g/dL (31-37) Red Cell Distribution Width 15.0 % (11.5-14.5) H Platelet Count 189 x10^3/uL (140-400) Neutrophils (%) (Auto) 82 % (31-73) H Lymphocytes (%) (Auto) 13 % (24-48) L Monocytes (%) (Auto) 3 % (0-9) Eosinophils (%) (Auto) 2 % (0-3) Basophils (%) (Auto) 0 % (0-3) Neutrophils # (Auto) 4.3 x10^3uL (1.8-7.7) Lymphocytes # (Auto) 0.7 x10^3/uL (1.0-4.8) L Monocytes # (Auto) 0.2 x10^3/uL (0.0-1.1) Eosinophils # (Auto) 0.1 x10^3/uL (0.0-0.7) Basophils # (Auto) 0.0 x10^3/uL (0.0-0.2) Sodium Level 137 mmol/L (136-145) Potassium Level 3.6 mmol/L (3.5-5.1) Chloride Level 101 mmol/L (98-107) Carbon Dioxide Level 24 mmol/L (21-32) Anion Gap 12 (6-14) Blood Urea Nitrogen 18 mg/dL (7-20) Creatinine 1.0 mg/dL (0.6-1.0) Estimated GFR (Cockcroft-Gault) 56.7 BUN/Creatinine Ratio 18 (6-20) Glucose Level 197 mg/dL (70-99) H Calcium Level 8.3 mg/dL (8.5-10.1) L Total Bilirubin 0.5 mg/dL (0.2-1.0) Aspartate Amino Transferase (AST) 30 U/L (15-37) Alanine Aminotransferase (ALT) 36 U/L (14-59) Alkaline Phosphatase 90 U/L (46-116) Troponin I Quantitative < 0.017 ng/mL (0.000-0.055) Total Protein 7.4 g/dL (6.4-8.2) Albumin 3.3 g/dL (3.4-5.0) L Albumin/Globulin Ratio 0.8 (1.0-1.7) L Lipase 211 U/L (73-393) Urine Collection Type Unknown Urine Color Yellow Urine Clarity Cloudy Urine pH 5.5 Urine Specific [place] >=1.030 Urine Protein Negative mg/dL (NEG-TRACE) Urine Glucose (UA) 100 mg/dL (NEG) Urine Ketones (Stick) Negative mg/dL (NEG) Urine Blood Negative (NEG) Urine Nitrite Negative (NEG) Urine Bilirubin Small (NEG) Urine Urobilinogen Dipstick 1.0 mg/dL (0.2 mg/dL) Urine Leukocyte Esterase Negative (NEG) Urine RBC Occ /HPF (0-2) Urine WBC Occ /HPF (0-4) Urine Squamous Epithelial Cells Few /LPF Urine Amorphous Sediment Present /HPF Urine Bacteria Few /HPF (0-FEW) Urine Mucus Mod /LPF Laboratory Tests 03/06/18 22:04 Laboratory Tests 03/06/18 22:04 EKG EKG EKG obtained 03/06/18 at [address] Anaya who compared to previous EKG from 04/17/16 similar previous EKG had flattening of T wave Sinus rhythm Rate 86 No STEMI Radiology/Procedures Radiology/Procedures PROCEDURE: CT ABD PELV W/ IV CONTRST ONLY INDICATION: severe generalized abd pain, [id number] 60ml, no priors COMPARISON: None. TECHNIQUE: Axial CT images obtained through the abdomen and pelvis with contrast. One or more of the following individualized dose reduction techniques were utilized for this examination: 1. Automated exposure control; 2. Adjustment of the mA and/or kV according to patient size; 3. Use of iterative reconstruction technique. FINDINGS: Calcific atherosclerosis. Liver is low-attenuation. There are couple of prominent lymph nodes seen within the fat adjacent to the heart. No peripancreatic fluid collection. There are some prominent lymph nodes in the jai hepatis. For example one of them measures up to 12 mm short axis. Spleen mildly prominent. Left greater than right adrenal gland thickening. No left-sided hydronephrosis. Urinary bladder is largely decompressed. The appendix measures up to 6 mm without adjacent inflammation. There is a couple mildly prominent loops of small bowel on the left side of the abdomen without a high-grade transition point. Degenerative changes spine. IMPRESSION: 1. There couple mildly prominent loops of small bowel in the left side of the abdomen but no high-grade transition point to suggest a obstruction. 2. Liver is low-attenuation. Nonspecific but can be seen with fatty infiltration. 3. There are a few nonspecific mildly enlarged lymph nodes in the upper abdomen including adjacent to the liver. Could be reactive to adjacent hepatic disease but it may be helpful to obtain a follow-up to ensure no growth to exclude neoplastic causes. 4. The appendix is borderline in size but no definite adjacent inflammatory changes. 5. Degenerative changes the spine with multilevel central canal and neural foraminal stenosis. Electronically signed by: Elise Carcamo MD (03/07/2018 12:14 AM) [facility] DICTATED and SIGNED BY: ELISE CARCAMO MD DATE: 03/07/18 0006 Course & Med Decision Making Course & Med Decision Making Pertinent Labs and Imaging studies reviewed. (See chart for details) 2300: On re-eval. pt reports no relief in sxs- she has had no V/D while in ER. Will provide additional nausea/pain med and obtain abd/pelvis CT. Dragon Disclaimer Dragon Disclaimer This electronic medical record was generated, in whole or in part, using a voice recognition dictation system. Departure Departure Impression: Primary Impression: Intractable abdominal pain Disposition: ADMITTED INPATIENT Admitting Physician: Other (Dr. Aleshia Hogan) Condition: STABLE Referrals: GAMAL CELIS (PCP) HILTON TAPIA APRN Mar 06, 2018 22:22
[2018-03-06 22:28] LABS: CALCIUM 8.3 mg/dL (8.5-10.1); GFR 56.7; POTASSIUM 3.6 mmol/L (3.5-5.1)
[2018-03-06 22:33] LABS: ALBUMIN 3.3 g/dL (3.4-5.0); ALBUMIN/GLOBULIN RATIO 0.8 (1.0-1.7); TOTAL BILIRUBIN 0.5 mg/dL (0.2-1.0); TOTAL PROTEIN 7.4 g/dL (6.4-8.2)
[2018-03-06 23:13] LABS: BILIRUBIN,URINE SMALL (NEG); CLARITY,URINE CLOUDY; COLOR,URINE YELLOW; NITRITE,URINE NEGATIVE (NEG); PH,URINE 5.5; PROTEIN,URINE NEGATIVE (NEG-TRACE)
[2018-03-06 23:19] LABS: AMORPHOUS SEDIMENT,UR PRESENT /HPF; BACTERIA,URINE FEW /HPF (0-FEW); RBC,URINE OCC /HPF (0-2); SQUAMOUS EPITHELIAL CELL,UR FEW /LPF; WBC,URINE OCC /HPF (0-4)
[2018-03-06] MEDS ORDERED: IOHEXOL 300 MG/ML 100ML VIAL. IV ONE (23:30)
[2018-03-06] MEDS ORDERED: fentaNYL PF VIAL 100 MCG/2 ML VIAL IV ONE (23:30)
[2018-03-06] MEDS ORDERED: CONTRAST GIVEN. MC PRN (23:30)
[2018-03-07] VITALS (7 sets, daily range): BP systolic 110–136; BP diastolic 60–88
--- NOTE | 2018-03-07 00:18 | RAD ---
INDICATION: severe generalized abd pain, [id number] 60ml, no priors COMPARISON: None. TECHNIQUE: Axial CT images obtained through the abdomen and pelvis with contrast. One or more of the following individualized dose reduction techniques were utilized for this examination: 1. Automated exposure control; 2. Adjustment of the mA and/or kV according to patient size; 3. Use of iterative reconstruction technique. FINDINGS: Calcific atherosclerosis. Liver is low-attenuation. There are couple of prominent lymph nodes seen within the fat adjacent to the heart. No peripancreatic fluid collection. There are some prominent lymph nodes in the jai hepatis. For example one of them measures up to 12 mm short axis. Spleen mildly prominent. Left greater than right adrenal gland thickening. No left-sided hydronephrosis. Urinary bladder is largely decompressed. The appendix measures up to 6 mm without adjacent inflammation. There is a couple mildly prominent loops of small bowel on the left side of the abdomen without a high-grade transition point. Degenerative changes spine. IMPRESSION: 1. There couple mildly prominent loops of small bowel in the left side of the abdomen but no high-grade transition point to suggest a obstruction. 2. Liver is low-attenuation. Nonspecific but can be seen with fatty infiltration. 3. There are a few nonspecific mildly enlarged lymph nodes in the upper abdomen including adjacent to the liver. Could be reactive to adjacent hepatic disease but it may be helpful to obtain a follow-up to ensure no growth to exclude neoplastic causes. 4. The appendix is borderline in size but no definite adjacent inflammatory changes. 5. Degenerative changes the spine with multilevel central canal and neural foraminal stenosis. Electronically signed by: Robert Perez MD (03/07/2018 12:14 AM) [id number]
[2018-03-07] MEDS ORDERED: ONDANSETRON PF 4 MG/2 ML VIAL. IV PRN (00:45)
[2018-03-07] MEDS: IV NORMAL SALINE 1000ML BAG 1,000 ML IV SCH ×2 (02:08→14:01)
[2018-03-07] MEDS: fentaNYL PF VIAL 100 MCG/2 ML VIAL IV PRN ×3 (02:19→21:18)
--- NOTE | 2018-03-07 08:21 | EKG ---
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
[2018-03-07] MEDS: ACETAMINOPHEN 325 MG TABLET. PO PRN ×2 (09:45→18:37)
--- NOTE | 2018-03-07 11:12 | PDOC1 ---
History and Physical Date of Admission Date of Admission DATE: 03/07/18 TIME: 11:12 Identification/Chief Complaint Chief Complaint 58-year-old female presents to ER via POV with complaints of diffuse upper abdominal pain which started last night and has been gradually worsening throughout yesterday . Patient reports she had 3 episodes of vomiting yesterday no emesis today, rates pain 8/10 Past Medical History Past Medical History Past Medical History Past Medical History: Asthma, Bronchitis, COPD, Diabetes-Type II, High Cholesterol Additional Past Medical Histor: CHRONIC PAIN Past Surgical History: Hysterectomy Additional Past Surgical Histo: ABD HERNIA, EYE SURGERY, CARPAL TUNNEL RELEASE : R Alcohol Use: None Drug Use: None family hx obesity Past Medical History: Asthma, Bronchitis, COPD, Diabetes-Type II, High Cholesterol Additional Past Medical Histor: CHRONIC PAIN Past Surgical History: Hysterectomy Additional Past Surgical Histo: ABD HERNIA, EYE SURGERY, CARPAL TUNNEL RELEASE : R Alcohol Use: None Drug Use: None Cardiovascular: HTN Pulmonary: COPD Family History Family History: Hypertension Cardiovascular: HTN Pulmonary: COPD Infectious disease: No pertinent hx Past Surgical History Past Surgical History: No pertinent history Family History Family History: Hypertension Social History Smoke: No ALCOHOL: none Drugs: None Current Problem List Problem List Problems Medical Problems: (1) Intractable abdominal pain Status: Acute Current Medications Current Medications Current Medications Sodium Chloride 1,000 ml @ 1,000 mls/hr 1X ONCE IV Last administered on at 22:12; Start 03/06/18 at 22:00; Stop 03/06/18 at 22:59; Status DC Ondansetron HCl (Zofran) 4 mg 1X ONCE IV Last administered on 03/06/18at 22:11 ; Start 03/06/18 at 22:15; Stop 03/06/18 at 22:16; Status DC Dicyclomine HCl (Bentyl) 20 mg 1X ONCE IM Last administered on 03/06/18at 22:12 ; Start 03/06/18 at 22:15; Stop 03/06/18 at 22:16; Status DC Ondansetron HCl (Zofran) 4 mg 1X ONCE IV Last administered on 03/06/18at 23:33 ; Start 03/06/18 at 23:30; Stop 03/06/18 at 23:31; Status DC Fentanyl Citrate (Fentanyl 2ml Vial) 50 mcg 1X ONCE IV Last administered on at 23:33; Start 03/06/18 at 23:30; Stop 03/06/18 at 23:31; Status DC Iohexol (Omnipaque 300 Mg/ml) 60 ml 1X ONCE IV Last administered on 03/06/18at 23:41; Start 03/06/18 at 23:30; Stop 03/06/18 at 23:31; Status DC Info (CONTRAST GIVEN -- Rx MONITORING) 1 each PRN DAILY PRN MC SEE COMMENTS; Start 03/06/18 at 23:30; Stop 03/08/18 at 23:29 Ondansetron HCl (Zofran) 4 mg PRN Q8HRS PRN IV NAUSEA/VOMITING; Start 03/07/18 at 00:45; Stop 03/08/18 at 00:44 Fentanyl Citrate (Fentanyl 2ml Vial) 25 mcg PRN Q2HR PRN IV PAIN Last administered on 03/07/18at 02:19; Start 03/07/18 at 00:45; Stop 03/08/18 at 00:44 Sodium Chloride 1,000 ml @ 100 mls/hr Q10H IV Last administered on 03/07/18at 02:08; Start 03/07/18 at 00:45; Stop 03/08/18 at 00:44 Acetaminophen (Tylenol) 650 mg PRN Q6HRS PRN PO PAIN Last administered on at 09:45; Start 03/07/18 at 09:15 Active Scripts Active Pyridium (Phenazopyridine Hcl) 100 Mg Tablet 100 Mg PO TID Tessalon Perle (Benzonatate) 100 Mg Capsule 1 Cap PO TID Ventolin Hfa Inhaler (Albuterol Sulfate) 18 Gm Hfa.aer.ad 2 Puff INH Q4HRS Diclofenac Sodium 50 Mg Tablet.dr 50 Mg PO BID PRN 7 Days Tessalon Perle (Benzonatate) 100 Mg Capsule 100 Mg PO TID PRN Proair Respiclick (Albuterol Sulfate) 90 Mcg Aer.pow.ba 1 Puff IH PRN Q6HRS PRN Reported Children's Aspirin (Aspirin) 81 Mg Tab.chew 81 Mg PO DAILY Protonix (Pantoprazole Sodium) 20 Mg Tablet.dr 40 Mg PO DAILY Wellbutrin Sr (Bupropion Hcl) 150 Mg Tablet.er 1 Tab PO BID Trazodone Hcl 50 Mg Tablet 1 Tab PO QHS Hydrochlorothiazide Tablet (Hydrochlorothiazide) 25 Mg Tablet 12.5 Mg PO DAILY Metformin Hcl 500 Mg Tablet 1,000 Mg PO BID Allergies Allergies: Coded Allergies: prednisone (Verified Adverse Reaction, Mild, "It upsets my stomach.", 10/30) ROS Review of System Review of Systems Review of Systems Constitutional: Denies fever or chills he reports generalized fatigue Eyes: Denies change in visual acuity, redness, or eye pain [] HENT: Denies nasal congestion or sore throat [] Respiratory: Denies shortness of breath. Reports chronic cough denies productivity or acute change. Cardiovascular: Denies chest pain or palpitations GI: Denies bloody stools. Reports diffuse upper abdominal pain with N/V/D : Denies dysuria or hematuria. Reports decreased urinary output today Musculoskeletal: Denies back/neck pain or joint pain [] Integument: Denies rash or skin lesions. Reports bilateral lower extremity swelling chronic with no acute change Neurologic: Denies headache, focal weakness or sensory changes [] Endocrine: Denies polyuria or polydipsia [] 14 pt systems were reviewed and found to be within normal limits, except as documented Eyes: No Blurry vision, No Decreased vision, No Double vision, No Dry eyes, No Excessive tearing, No Eye Pain, No Itchy Eyes, No Loss of vision, No Photophobia , No Scotomata, No Uses contacts, No Uses glasses, No Other Hematological and Lymphatic: No: Bleeding Problems, Blood Clots, Blood Transfusions, Brusing, Night Sweats, Pallor, Swollen Lymph Nodes, Other Respiratory: No: Cough, Hemoptysis, Orthopnea, Pleuritic Pain, Shortness of breath, SOB with excertion, Sputum Changes, Stridor, Tachypnea, Wheezing, Other Gastrointestinal: Yes Nausea, Yes Vomiting, Yes Abdominal Pain Physical Exam Physical Exam Physical Exam Physical Exam Constitutional: Well developed, well nourished, no acute distress, non-toxic appearance. [] HENT: Normocephalic, atraumatic, mucous membranes pink/dry, no oral exudates, nose normal. [] Eyes: Pupils equal, no nystagmus, conjunctiva normal, no discharge. [] Neck: Normal range of motion, no tenderness, supple, no stridor. [] Cardiovascular: Heart rate regular rhythm, no murmur [] Lungs & Thorax: Bilateral breath sounds clear to auscultation, Respirations equal and nonlabored. Occasional nonprod. cough during exam Abdomen: Bowel sounds normal, soft/obese nondistended with no rigidity, diffuse tenderness in upper abdomen with no focal area-no rebound tenderness, no masses , no pulsatile masses. [] Skin: Warm, dry, no erythema, no rash. [] Back: No tenderness, no CVA tenderness. [] Extremities: No tenderness, no cyanosis, no clubbing, ROM intact, bilateral 1-2 + nonpitting edema. 2+ pedal/dorsal pedis bilateral equal Neurologic: Alert and oriented X 3, normal motor function, normal sensory function, no focal deficits noted. [] Psychologic: Affect normal, judgement normal, mood normal. [] General: Alert, Oriented X3, Cooperative, No acute distress, mild distress Lungs: Clear to auscultation Abdomen: Normal bowel sounds, Soft, Other (ruq tender no rebound) Extremities: No cyanosis Skin: No breakdown Neuro: Normal speech, Cranial nerves 3-12 NL Psych/Mental Status: Mental status NL Vitals Vitals Vital Signs Date Time Temp Pulse Resp B/P (MAP) Pulse Ox O2 Delivery O2 Flow Rate FiO2 03/07/18 07:00 98.2 69 18 116/70 (85) 97 Room Air 98.2 03/07/18 02:49 2.0 Labs Labs Laboratory Tests Test 03/06/18 22:04 03/06/18 22:58 White Blood Count 5.2 x10^3/uL (4.0-11.0) Red Blood Count 5.33 x10^6/uL (3.50-5.40) Hemoglobin 14.9 g/dL (12.0-15.5) Hematocrit 43.7 % (36.0-47.0) Mean Corpuscular Volume 82 fL (79-100) Mean Corpuscular Hemoglobin 28 pg (25-35) Mean Corpuscular Hemoglobin Concent 34 g/dL (31-37) Red Cell Distribution Width 15.0 % (11.5-14.5) Platelet Count 189 x10^3/uL (140-400) Neutrophils (%) (Auto) 82 % (31-73) Lymphocytes (%) (Auto) 13 % (24-48) Monocytes (%) (Auto) 3 % (0-9) Eosinophils (%) (Auto) 2 % (0-3) Basophils (%) (Auto) 0 % (0-3) Neutrophils # (Auto) 4.3 x10^3uL (1.8-7.7) Lymphocytes # (Auto) 0.7 x10^3/uL (1.0-4.8) Monocytes # (Auto) 0.2 x10^3/uL (0.0-1.1) Eosinophils # (Auto) 0.1 x10^3/uL (0.0-0.7) Basophils # (Auto) 0.0 x10^3/uL (0.0-0.2) Sodium Level 137 mmol/L (136-145) Potassium Level 3.6 mmol/L (3.5-5.1) Chloride Level 101 mmol/L (98-107) Carbon Dioxide Level 24 mmol/L (21-32) Anion Gap 12 (6-14) Blood Urea Nitrogen 18 mg/dL (7-20) Creatinine 1.0 mg/dL (0.6-1.0) Estimated GFR (Cockcroft-Gault) 56.7 BUN/Creatinine Ratio 18 (6-20) Glucose Level 197 mg/dL (70-99) Calcium Level 8.3 mg/dL (8.5-10.1) Total Bilirubin 0.5 mg/dL (0.2-1.0) Aspartate Amino Transf (AST/SGOT) 30 U/L (15-37) Alanine Aminotransferase (ALT/SGPT) 36 U/L (14-59) Alkaline Phosphatase 90 U/L (46-116) Troponin I Quantitative < 0.017 ng/mL (0.000-0.055) Total Protein 7.4 g/dL (6.4-8.2) Albumin 3.3 g/dL (3.4-5.0) Albumin/Globulin Ratio 0.8 (1.0-1.7) Lipase 211 U/L (73-393) Urine Collection Type Unknown Urine Color Yellow Urine Clarity Cloudy Urine pH 5.5 Urine Specific [place] >=1.030 Urine Protein Negative mg/dL (NEG-TRACE) Urine Glucose (UA) 100 mg/dL (NEG) Urine Ketones (Stick) Negative mg/dL (NEG) Urine Blood Negative (NEG) Urine Nitrite Negative (NEG) Urine Bilirubin Small (NEG) Urine Urobilinogen Dipstick 1.0 mg/dL (0.2 mg/dL) Urine Leukocyte Esterase Negative (NEG) Urine RBC Occ /HPF (0-2) Urine WBC Occ /HPF (0-4) Urine Squamous Epithelial Cells Few /LPF Urine Amorphous Sediment Present /HPF Urine Bacteria Few /HPF (0-FEW) Urine Mucus Mod /LPF Laboratory Tests Test 03/06/18 22:04 03/06/18 22:58 White Blood Count 5.2 x10^3/uL (4.0-11.0) Red Blood Count 5.33 x10^6/uL (3.50-5.40) Hemoglobin 14.9 g/dL (12.0-15.5) Hematocrit 43.7 % (36.0-47.0) Mean Corpuscular Volume 82 fL (79-100) Mean Corpuscular Hemoglobin 28 pg (25-35) Mean Corpuscular Hemoglobin Concent 34 g/dL (31-37) Red Cell Distribution Width 15.0 % (11.5-14.5) Platelet Count 189 x10^3/uL (140-400) Neutrophils (%) (Auto) 82 % (31-73) Lymphocytes (%) (Auto) 13 % (24-48) Monocytes (%) (Auto) 3 % (0-9) Eosinophils (%) (Auto) 2 % (0-3) Basophils (%) (Auto) 0 % (0-3) Neutrophils # (Auto) 4.3 x10^3uL (1.8-7.7) Lymphocytes # (Auto) 0.7 x10^3/uL (1.0-4.8) Monocytes # (Auto) 0.2 x10^3/uL (0.0-1.1) Eosinophils # (Auto) 0.1 x10^3/uL (0.0-0.7) Basophils # (Auto) 0.0 x10^3/uL (0.0-0.2) Sodium Level 137 mmol/L (136-145) Potassium Level 3.6 mmol/L (3.5-5.1) Chloride Level 101 mmol/L (98-107) Carbon Dioxide Level 24 mmol/L (21-32) Anion Gap 12 (6-14) Blood Urea Nitrogen 18 mg/dL (7-20) Creatinine 1.0 mg/dL (0.6-1.0) Estimated GFR (Cockcroft-Gault) 56.7 BUN/Creatinine Ratio 18 (6-20) Glucose Level 197 mg/dL (70-99) Calcium Level 8.3 mg/dL (8.5-10.1) Total Bilirubin 0.5 mg/dL (0.2-1.0) Aspartate Amino Transf (AST/SGOT) 30 U/L (15-37) Alanine Aminotransferase (ALT/SGPT) 36 U/L (14-59) Alkaline Phosphatase 90 U/L (46-116) Troponin I Quantitative < 0.017 ng/mL (0.000-0.055) Total Protein 7.4 g/dL (6.4-8.2) Albumin 3.3 g/dL (3.4-5.0) Albumin/Globulin Ratio 0.8 (1.0-1.7) Lipase 211 U/L (73-393) Urine Collection Type Unknown Urine Color Yellow Urine Clarity Cloudy Urine pH 5.5 Urine Specific [place] >=1.030 Urine Protein Negative mg/dL (NEG-TRACE) Urine Glucose (UA) 100 mg/dL (NEG) Urine Ketones (Stick) Negative mg/dL (NEG) Urine Blood Negative (NEG) Urine Nitrite Negative (NEG) Urine Bilirubin Small (NEG) Urine Urobilinogen Dipstick 1.0 mg/dL (0.2 mg/dL) Urine Leukocyte Esterase Negative (NEG) Urine RBC Occ /HPF (0-2) Urine WBC Occ /HPF (0-4) Urine Squamous Epithelial Cells Few /LPF Urine Amorphous Sediment Present /HPF Urine Bacteria Few /HPF (0-FEW) Urine Mucus Mod /LPF Images Images INDICATION: severe generalized abd pain, [id number] 60ml, no priors COMPARISON: None. TECHNIQUE: Axial CT images obtained through the abdomen and pelvis with contrast. One or more of the following individualized dose reduction techniques were utilized for this examination: 1. Automated exposure control; 2. Adjustment of the mA and/or kV according to patient size; 3. Use of iterative reconstruction technique. FINDINGS: Calcific atherosclerosis. Liver is low-attenuation. There are couple of prominent lymph nodes seen within the fat adjacent to the heart. No peripancreatic fluid collection. There are some prominent lymph nodes in the jai hepatis. For example one of them measures up to 12 mm short axis. Spleen mildly prominent. Left greater than right adrenal gland thickening. No left-sided hydronephrosis. Urinary bladder is largely decompressed. The appendix measures up to 6 mm without adjacent inflammation. There is a couple mildly prominent loops of small bowel on the left side of the abdomen without a high-grade transition point. Degenerative changes spine. IMPRESSION: 1. There couple mildly prominent loops of small bowel in the left side of the abdomen but no high-grade transition point to suggest a obstruction. 2. Liver is low-attenuation. Nonspecific but can be seen with fatty infiltration. 3. There are a few nonspecific mildly enlarged lymph nodes in the upper abdomen including adjacent to the liver. Could be reactive to adjacent hepatic disease but it may be helpful to obtain a follow-up to ensure no growth to exclude neoplastic causes. 4. The appendix is borderline in size but no definite adjacent inflammatory changes. 5. Degenerative changes the spine with multilevel central canal and neural foraminal stenosis. Electronically signed by: Robert Perez MD (03/07/2018 12:14 AM) [facility] VTE Prophylaxis Ordered VTE Prophylaxis Devices: Yes VTE Pharmacological Prophylaxi: Yes Assessment/Plan Assessment/Plan impression 1. intractable vomiting 2. ruq pain The appendix measures up to 6 mm without adjacent inflammation. There is a couple mildly prominent loops of small bowel on the left side of the abdomen without a high-grade transition point. 3. morbid obesity plan surgery consult abd sonogram in am npo iv fluid support serial exams sq lovenox dvt prophylaxis CAITLIN LEWIS MD Mar 07, 2018 11:12
--- NOTE | 2018-03-07 12:34 | PDOC2 ---
JM J[facility]NSON [employer] 03/07/18 1234: CONSULT Date of Consult Date of Consult DATE: 03/07/18 TIME: 12:30 Reason for Consult Reason for Consult: abdominal pain Referring Physician Referring Physician: Dr Gutiérrez Identification/Chief Complaint Chief Complaint abdominal pain Source Source: Chart review, Patient History of Present Illness Reason for Visit: Reports developed diarrhea on Thursday, Thursday developed diffuse abdominal pain and emesis. Pain has continued, however no further emesis. She is hungry. Still having diarrhea Past Medical History Cardiovascular: HTN Pulmonary: COPD Past Surgical History Past Surgical History: Hysterectomy Family History Family History: Hypertension Social History <1 pack per day ALCOHOL: none Drugs: None Current Problem List Problem List Problems Medical Problems: (1) Intractable abdominal pain Status: Acute Current Medications Current Medications Current Medications Sodium Chloride 1,000 ml @ 1,000 mls/hr 1X ONCE IV Last administered on at 22:12; Start 03/06/18 at 22:00; Stop 03/06/18 at 22:59; Status DC Ondansetron HCl (Zofran) 4 mg 1X ONCE IV Last administered on 03/06/18at 22:11 ; Start 03/06/18 at 22:15; Stop 03/06/18 at 22:16; Status DC Dicyclomine HCl (Bentyl) 20 mg 1X ONCE IM Last administered on 03/06/18at 22:12 ; Start 03/06/18 at 22:15; Stop 03/06/18 at 22:16; Status DC Ondansetron HCl (Zofran) 4 mg 1X ONCE IV Last administered on 03/06/18at 23:33 ; Start 03/06/18 at 23:30; Stop 03/06/18 at 23:31; Status DC Fentanyl Citrate (Fentanyl 2ml Vial) 50 mcg 1X ONCE IV Last administered on at 23:33; Start 03/06/18 at 23:30; Stop 03/06/18 at 23:31; Status DC Iohexol (Omnipaque 300 Mg/ml) 60 ml 1X ONCE IV Last administered on 03/06/18at 23:41; Start 03/06/18 at 23:30; Stop 03/06/18 at 23:31; Status DC Info (CONTRAST GIVEN -- Rx MONITORING) 1 each PRN DAILY PRN MC SEE COMMENTS; Start 03/06/18 at 23:30; Stop 03/08/18 at 23:29 Ondansetron HCl (Zofran) 4 mg PRN Q8HRS PRN IV NAUSEA/VOMITING; Start 03/07/18 at 00:45; Stop 03/08/18 at 00:44 Fentanyl Citrate (Fentanyl 2ml Vial) 25 mcg PRN Q2HR PRN IV PAIN Last administered on 03/07/18at 02:19; Start 03/07/18 at 00:45; Stop 03/08/18 at 00:44 Sodium Chloride 1,000 ml @ 100 mls/hr Q10H IV Last administered on 03/07/18at 02:08; Start 03/07/18 at 00:45; Stop 03/08/18 at 00:44 Acetaminophen (Tylenol) 650 mg PRN Q6HRS PRN PO PAIN Last administered on at 09:45; Start 03/07/18 at 09:15 Active Scripts Active Pyridium (Phenazopyridine Hcl) 100 Mg Tablet 100 Mg PO TID Tessalon Perle (Benzonatate) 100 Mg Capsule 1 Cap PO TID Ventolin Hfa Inhaler (Albuterol Sulfate) 18 Gm Hfa.aer.ad 2 Puff INH Q4HRS Diclofenac Sodium 50 Mg Tablet.dr 50 Mg PO BID PRN 7 Days Tessalon Perle (Benzonatate) 100 Mg Capsule 100 Mg PO TID PRN Proair Respiclick (Albuterol Sulfate) 90 Mcg Aer.pow.ba 1 Puff IH PRN Q6HRS PRN Reported Children's Aspirin (Aspirin) 81 Mg Tab.chew 81 Mg PO DAILY Protonix (Pantoprazole Sodium) 20 Mg Tablet.dr 40 Mg PO DAILY Wellbutrin Sr (Bupropion Hcl) 150 Mg Tablet.er 1 Tab PO BID Trazodone Hcl 50 Mg Tablet 1 Tab PO QHS Hydrochlorothiazide Tablet (Hydrochlorothiazide) 25 Mg Tablet 12.5 Mg PO DAILY Metformin Hcl 500 Mg Tablet 1,000 Mg PO BID Allergies Allergies: Coded Allergies: prednisone (Verified Adverse Reaction, Mild, "It upsets my stomach.", 10/30) ROS General: No: Chills, Other (no fevers or chills ) PSYCHOLOGICAL ROS: No: Anxiety, Depression Eyes: No Blurry vision, No Double vision HEENT: No: Heacaches, Sore Throat Hematological and Lymphatic: No: Bleeding Problems, Blood Clots Respiratory: No: Cough, Shortness of breath Cardiovascular: No Chest Pain, No Palpitations Gastrointestinal: Yes Other (see hpi) Genitourinary: No Dysuria, No Hematuria Musculoskeletal: No Joint Pain, No Muscle Pain Neurological: No Impaired Coord/balance, No Numbness/Tingling Skin: No Pruritus, No Rash Physical Exam General: Alert, Oriented X3, Cooperative, No acute distress HEENT: PERRLA, Mucous membr. moist/pink Lungs: Clear to auscultation, Normal air movement Heart: Regular rate, Normal S1, Normal S2, No murmurs Abdomen: Soft, Other (ND, mild generalized TTP) Extremities: No clubbing, No cyanosis Skin: No rashes, No breakdown Neuro: Normal gait, Normal speech Psych/Mental Status: Mental status NL, Mood NL MUSCULOSKELETAL: No deformity, No swelling Vitals VITALS Vital Signs Date Time Temp Pulse Resp B/P (MAP) Pulse Ox O2 Delivery O2 Flow Rate FiO2 03/07/18 11:00 98.3 55 18 115/65 (82) 95 Room Air 98.3 03/07/18 02:49 2.0 Labs Labs Laboratory Tests Test 03/06/18 22:04 03/06/18 22:58 White Blood Count 5.2 x10^3/uL (4.0-11.0) Red Blood Count 5.33 x10^6/uL (3.50-5.40) Hemoglobin 14.9 g/dL (12.0-15.5) Hematocrit 43.7 % (36.0-47.0) Mean Corpuscular Volume 82 fL (79-100) Mean Corpuscular Hemoglobin 28 pg (25-35) Mean Corpuscular Hemoglobin Concent 34 g/dL (31-37) Red Cell Distribution Width 15.0 % (11.5-14.5) Platelet Count 189 x10^3/uL (140-400) Neutrophils (%) (Auto) 82 % (31-73) Lymphocytes (%) (Auto) 13 % (24-48) Monocytes (%) (Auto) 3 % (0-9) Eosinophils (%) (Auto) 2 % (0-3) Basophils (%) (Auto) 0 % (0-3) Neutrophils # (Auto) 4.3 x10^3uL (1.8-7.7) Lymphocytes # (Auto) 0.7 x10^3/uL (1.0-4.8) Monocytes # (Auto) 0.2 x10^3/uL (0.0-1.1) Eosinophils # (Auto) 0.1 x10^3/uL (0.0-0.7) Basophils # (Auto) 0.0 x10^3/uL (0.0-0.2) Sodium Level 137 mmol/L (136-145) Potassium Level 3.6 mmol/L (3.5-5.1) Chloride Level 101 mmol/L (98-107) Carbon Dioxide Level 24 mmol/L (21-32) Anion Gap 12 (6-14) Blood Urea Nitrogen 18 mg/dL (7-20) Creatinine 1.0 mg/dL (0.6-1.0) Estimated GFR (Cockcroft-Gault) 56.7 BUN/Creatinine Ratio 18 (6-20) Glucose Level 197 mg/dL (70-99) Calcium Level 8.3 mg/dL (8.5-10.1) Total Bilirubin 0.5 mg/dL (0.2-1.0) Aspartate Amino Transf (AST/SGOT) 30 U/L (15-37) Alanine Aminotransferase (ALT/SGPT) 36 U/L (14-59) Alkaline Phosphatase 90 U/L (46-116) Troponin I Quantitative < 0.017 ng/mL (0.000-0.055) Total Protein 7.4 g/dL (6.4-8.2) Albumin 3.3 g/dL (3.4-5.0) Albumin/Globulin Ratio 0.8 (1.0-1.7) Lipase 211 U/L (73-393) Urine Collection Type Unknown Urine Color Yellow Urine Clarity Cloudy Urine pH 5.5 Urine Specific [place] >=1.030 Urine Protein Negative mg/dL (NEG-TRACE) Urine Glucose (UA) 100 mg/dL (NEG) Urine Ketones (Stick) Negative mg/dL (NEG) Urine Blood Negative (NEG) Urine Nitrite Negative (NEG) Urine Bilirubin Small (NEG) Urine Urobilinogen Dipstick 1.0 mg/dL (0.2 mg/dL) Urine Leukocyte Esterase Negative (NEG) Urine RBC Occ /HPF (0-2) Urine WBC Occ /HPF (0-4) Urine Squamous Epithelial Cells Few /LPF Urine Amorphous Sediment Present /HPF Urine Bacteria Few /HPF (0-FEW) Urine Mucus Mod /LPF Laboratory Tests Test 03/06/18 22:04 03/06/18 22:58 White Blood Count 5.2 x10^3/uL (4.0-11.0) Red Blood Count 5.33 x10^6/uL (3.50-5.40) Hemoglobin 14.9 g/dL (12.0-15.5) Hematocrit 43.7 % (36.0-47.0) Mean Corpuscular Volume 82 fL (79-100) Mean Corpuscular Hemoglobin 28 pg (25-35) Mean Corpuscular Hemoglobin Concent 34 g/dL (31-37) Red Cell Distribution Width 15.0 % (11.5-14.5) Platelet Count 189 x10^3/uL (140-400) Neutrophils (%) (Auto) 82 % (31-73) Lymphocytes (%) (Auto) 13 % (24-48) Monocytes (%) (Auto) 3 % (0-9) Eosinophils (%) (Auto) 2 % (0-3) Basophils (%) (Auto) 0 % (0-3) Neutrophils # (Auto) 4.3 x10^3uL (1.8-7.7) Lymphocytes # (Auto) 0.7 x10^3/uL (1.0-4.8) Monocytes # (Auto) 0.2 x10^3/uL (0.0-1.1) Eosinophils # (Auto) 0.1 x10^3/uL (0.0-0.7) Basophils # (Auto) 0.0 x10^3/uL (0.0-0.2) Sodium Level 137 mmol/L (136-145) Potassium Level 3.6 mmol/L (3.5-5.1) Chloride Level 101 mmol/L (98-107) Carbon Dioxide Level 24 mmol/L (21-32) Anion Gap 12 (6-14) Blood Urea Nitrogen 18 mg/dL (7-20) Creatinine 1.0 mg/dL (0.6-1.0) Estimated GFR (Cockcroft-Gault) 56.7 BUN/Creatinine Ratio 18 (6-20) Glucose Level 197 mg/dL (70-99) Calcium Level 8.3 mg/dL (8.5-10.1) Total Bilirubin 0.5 mg/dL (0.2-1.0) Aspartate Amino Transf (AST/SGOT) 30 U/L (15-37) Alanine Aminotransferase (ALT/SGPT) 36 U/L (14-59) Alkaline Phosphatase 90 U/L (46-116) Troponin I Quantitative < 0.017 ng/mL (0.000-0.055) Total Protein 7.4 g/dL (6.4-8.2) Albumin 3.3 g/dL (3.4-5.0) Albumin/Globulin Ratio 0.8 (1.0-1.7) Lipase 211 U/L (73-393) Urine Collection Type Unknown Urine Color Yellow Urine Clarity Cloudy Urine pH 5.5 Urine Specific [place] >=1.030 Urine Protein Negative mg/dL (NEG-TRACE) Urine Glucose (UA) 100 mg/dL (NEG) Urine Ketones (Stick) Negative mg/dL (NEG) Urine Blood Negative (NEG) Urine Nitrite Negative (NEG) Urine Bilirubin Small (NEG) Urine Urobilinogen Dipstick 1.0 mg/dL (0.2 mg/dL) Urine Leukocyte Esterase Negative (NEG) Urine RBC Occ /HPF (0-2) Urine WBC Occ /HPF (0-4) Urine Squamous Epithelial Cells Few /LPF Urine Amorphous Sediment Present /HPF Urine Bacteria Few /HPF (0-FEW) Urine Mucus Mod /LPF Assessment/Plan Assessment/Plan abdominal pain, diarrhea, emesis seems more c/w enteritis bowel rest, observation will review with TYLER Bond MD 03/07/18 1642: CONSULT Assessment/Plan Assessment/Plan Pt seen and examined. Agree with Ms. Johnson's note Pt feels better, main c/o is ABDI abd soft will ADAT Thanks for consult! JM JOHNSON APRN Mar 07, 2018 12:34 TYLER PAK MD Mar 07, 2018 16:42
[2018-03-07] MEDS ORDERED: BENZONATATE 100 MG PO PRN (17:45)
[2018-03-07] MEDS ORDERED: ALBUTEROL SULFATE 2.5 MG/3 ML NEBU. NEB PRN (18:00)
[2018-03-07] MEDS: ASPIRIN CHEWABLE 81 MG TABLET. PO SCH (18:37)
[2018-03-07] MEDS: PANTOPRAZOLE 40 MG TABLET.DR. PO SCH (18:41)
[2018-03-07] MEDS: hydroCHLOROthiazide 12.5 MG CAPSULE PO SCH (18:42)
[2018-03-07] MEDS ORDERED: traZODone 50 MG TABLET. PO SCH (21:00)
[2018-03-07] MEDS: BENZONATATE 100 MG CAPSULE. PO SCH (22:13)
[2018-03-07] MEDS: buPROPion SR 150 MG TABLET.SA PO SCH (22:14)
[2018-03-08] MEDS: ACETAMINOPHEN 325 MG TABLET. PO PRN ×2 (00:41→08:34)
[2018-03-08] MEDS: IV NORMAL SALINE 1000ML BAG 1,000 ML IV SCH (00:42)
[2018-03-08 03:21] VITALS: BP 114/67
--- NOTE | 2018-03-08 04:17 | RAD ---
INDICATION : RUQ PAIN COMPARISON: One day prior TECHNIQUE: Multiple ultrasound images obtained through the abdomen in grayscale and color. FINDINGS: Liver: Echogenic appearance. Gallbladder: No wall thickening or stones. IVC: Partially distended at level of liver. Common Bile Duct: Not dilated. Pancreas: Largely obscured Right Kidney: No hydronephrosis. IMPRESSION: 1. No biliary ductal dilation or gallstones. 2. Liver is echogenic. Nonspecific but can be seen with fatty infiltration. Electronically signed by: Robert Perez MD (03/08/2018 4:14 AM) [facility]
[2018-03-08] MEDS ORDERED: fentaNYL PF VIAL 100 MCG/2 ML VIAL IV PRN (06:15)
[2018-03-08] MEDS: ASPIRIN CHEWABLE 81 MG TABLET. PO SCH (06:31)
[2018-03-08 07:00] VITALS: BP 130/74
[2018-03-08 07:23] LABS: BASO % 0 % (0-3); EOS # 0.7 x10^3/uL (0.0-0.7); EOS % 13 % (0-3); HEMATOCRIT 37.3 % (36.0-47.0); HEMOGLOBIN 12.7 g/dL (12.0-15.5); LYMPH # 2.5 x10^3/uL (1.0-4.8); LYMPH % 45 % (24-48); MEAN CORPUSCULAR HEMOGLOBIN 28 pg (25-35); MEAN CORPUSCULAR HGB CONC 34 g/dL (31-37); MEAN CORPUSCULAR VOLUME 83 fL (79-100); MONO # 0.5 x10^3/uL (0.0-1.1); MONO % 8 % (0-9); NEUT # 1.9 x10^3uL (1.8-7.7); NEUT % 34 % (31-73); PLATELET COUNT 148 x10^3/uL (140-400); RED BLOOD COUNT 4.52 x10^6/uL (3.50-5.40); RED CELL DISTRIBUTION WIDTH 15.1 % (11.5-14.5); WHITE BLOOD COUNT 5.6 x10^3/uL (4.0-11.0)
[2018-03-08 07:37] LABS: CALCIUM 8.1 mg/dL (8.5-10.1); CREATININE 0.8 mg/dL (0.6-1.0); GFR 73.4; POTASSIUM 3.4 mmol/L (3.5-5.1)
[2018-03-08] MEDS: buPROPion SR 150 MG TABLET.SA PO SCH (08:35)
[2018-03-08] MEDS: hydroCHLOROthiazide 12.5 MG CAPSULE PO SCH (08:35)
[2018-03-08] MEDS: BENZONATATE 100 MG CAPSULE. PO SCH ×2 (08:35→14:15)
[2018-03-08] MEDS: PANTOPRAZOLE 40 MG TABLET.DR. PO SCH (08:35)
[2018-03-08] MEDS ORDERED: HYDROcodone/APAP 5/325MG 1 TAB TABLET PO ONE (09:15)
--- NOTE | 2018-03-08 09:42 | PDOC ---
JM JOHNS [employer] 03/08/18 0942: SURGICAL PROGRESS NOTE Subjective eating (2 breakfast trays) loose stools still with ABDI and some abdominal pain Vital Signs Vital Signs Date Time Temp Pulse Resp B/P (MAP) Pulse Ox O2 Delivery O2 Flow Rate FiO2 03/08/18 07:14 93 Room Air 03/08/18 07:00 97.7 54 18 130/74 (92) 97.7 03/07/18 08:00 2.0 I&O Intake and Output 03/08/18 07:00 Intake Total 1970 ml Balance 1970 ml Intake Oral 770 ml IV Total 700 ml Other 500 ml # Voids 2 General: Alert, Oriented X3, Cooperative, No acute distress Abdomen: Soft, No tenderness, Other (ND) Labs Laboratory Tests Test 03/06/18 22:04 03/06/18 22:58 03/07/18 21:00 03/08/18 06:55 White Blood Count 5.2 x10^3/uL (4.0-11.0) 5.6 x10^3/uL (4.0-11.0) Red Blood Count 5.33 x10^6/uL (3.50-5.40) 4.52 x10^6/uL (3.50-5.40) Hemoglobin 14.9 g/dL (12.0-15.5) 12.7 g/dL (12.0-15.5) Hematocrit 43.7 % (36.0-47.0) 37.3 % (36.0-47.0) Mean Corpuscular Volume 82 fL (79-100) 83 fL (79-100) Mean Corpuscular Hemoglobin 28 pg (25-35) 28 pg (25-35) Mean Corpuscular Hemoglobin Concent 34 g/dL (31-37) 34 g/dL (31-37) Red Cell Distribution Width 15.0 % (11.5-14.5) 15.1 % (11.5-14.5) Platelet Count 189 x10^3/uL (140-400) 148 x10^3/uL (140-400) Neutrophils (%) (Auto) 82 % (31-73) 34 % (31-73) Lymphocytes (%) (Auto) 13 % (24-48) 45 % (24-48) Monocytes (%) (Auto) 3 % (0-9) 8 % (0-9) Eosinophils (%) (Auto) 2 % (0-3) 13 % (0-3) Basophils (%) (Auto) 0 % (0-3) 0 % (0-3) Neutrophils # (Auto) 4.3 x10^3uL (1.8-7.7) 1.9 x10^3uL (1.8-7.7) Lymphocytes # (Auto) 0.7 x10^3/uL (1.0-4.8) 2.5 x10^3/uL (1.0-4.8) Monocytes # (Auto) 0.2 x10^3/uL (0.0-1.1) 0.5 x10^3/uL (0.0-1.1) Eosinophils # (Auto) 0.1 x10^3/uL (0.0-0.7) 0.7 x10^3/uL (0.0-0.7) Basophils # (Auto) 0.0 x10^3/uL (0.0-0.2) 0.0 x10^3/uL (0.0-0.2) Sodium Level 137 mmol/L (136-145) 140 mmol/L (136-145) Potassium Level 3.6 mmol/L (3.5-5.1) 3.4 mmol/L (3.5-5.1) Chloride Level 101 mmol/L (98-107) 106 mmol/L (98-107) Carbon Dioxide Level 24 mmol/L (21-32) 25 mmol/L (21-32) Anion Gap 12 (6-14) 9 (6-14) Blood Urea Nitrogen 18 mg/dL (7-20) 7 mg/dL (7-20) Creatinine 1.0 mg/dL (0.6-1.0) 0.8 mg/dL (0.6-1.0) Estimated GFR (Cockcroft-Gault) 56.7 73.4 BUN/Creatinine Ratio 18 (6-20) Glucose Level 197 mg/dL (70-99) 109 mg/dL (70-99) Calcium Level 8.3 mg/dL (8.5-10.1) 8.1 mg/dL (8.5-10.1) Total Bilirubin 0.5 mg/dL (0.2-1.0) Aspartate Amino Transf (AST/SGOT) 30 U/L (15-37) Alanine Aminotransferase (ALT/SGPT) 36 U/L (14-59) Alkaline Phosphatase 90 U/L (46-116) Troponin I Quantitative < 0.017 ng/mL (0.000-0.055) Total Protein 7.4 g/dL (6.4-8.2) Albumin 3.3 g/dL (3.4-5.0) Albumin/Globulin Ratio 0.8 (1.0-1.7) Lipase 211 U/L (73-393) Urine Collection Type Unknown Urine Color Yellow Urine Clarity Cloudy Urine pH 5.5 Urine Specific [place] >=1.030 Urine Protein Negative mg/dL (NEG-TRACE) Urine Glucose (UA) 100 mg/dL (NEG) Urine Ketones (Stick) Negative mg/dL (NEG) Urine Blood Negative (NEG) Urine Nitrite Negative (NEG) Urine Bilirubin Small (NEG) Urine Urobilinogen Dipstick 1.0 mg/dL (0.2 mg/dL) Urine Leukocyte Esterase Negative (NEG) Urine RBC Occ /HPF (0-2) Urine WBC Occ /HPF (0-4) Urine Squamous Epithelial Cells Few /LPF Urine Amorphous Sediment Present /HPF Urine Bacteria Few /HPF (0-FEW) Urine Mucus Mod /LPF Glucose (Fingerstick) 142 mg/dL (70-99) Test 03/08/18 07:19 Glucose (Fingerstick) 102 mg/dL (70-99) Laboratory Tests Test 03/07/18 21:00 03/08/18 06:55 03/08/18 07:19 Glucose (Fingerstick) 142 mg/dL (70-99) 102 mg/dL (70-99) White Blood Count 5.6 x10^3/uL (4.0-11.0) Red Blood Count 4.52 x10^6/uL (3.50-5.40) Hemoglobin 12.7 g/dL (12.0-15.5) Hematocrit 37.3 % (36.0-47.0) Mean Corpuscular Volume 83 fL (79-100) Mean Corpuscular Hemoglobin 28 pg (25-35) Mean Corpuscular Hemoglobin Concent 34 g/dL (31-37) Red Cell Distribution Width 15.1 % (11.5-14.5) Platelet Count 148 x10^3/uL (140-400) Neutrophils (%) (Auto) 34 % (31-73) Lymphocytes (%) (Auto) 45 % (24-48) Monocytes (%) (Auto) 8 % (0-9) Eosinophils (%) (Auto) 13 % (0-3) Basophils (%) (Auto) 0 % (0-3) Neutrophils # (Auto) 1.9 x10^3uL (1.8-7.7) Lymphocytes # (Auto) 2.5 x10^3/uL (1.0-4.8) Monocytes # (Auto) 0.5 x10^3/uL (0.0-1.1) Eosinophils # (Auto) 0.7 x10^3/uL (0.0-0.7) Basophils # (Auto) 0.0 x10^3/uL (0.0-0.2) Sodium Level 140 mmol/L (136-145) Potassium Level 3.4 mmol/L (3.5-5.1) Chloride Level 106 mmol/L (98-107) Carbon Dioxide Level 25 mmol/L (21-32) Anion Gap 9 (6-14) Blood Urea Nitrogen 7 mg/dL (7-20) Creatinine 0.8 mg/dL (0.6-1.0) Estimated GFR (Cockcroft-Gault) 73.4 Glucose Level 109 mg/dL (70-99) Calcium Level 8.1 mg/dL (8.5-10.1) Problem List Problems Medical Problems: (1) Intractable abdominal pain Status: Acute Assessment/Plan no surgical plans dc when medically appropriate TYLER PAK MD 03/08/18 1702: SURGICAL PROGRESS NOTE Assessment/Plan Pt seen and examined. Agree with Ms. Johns's note Pt main c/o is ABDI quique PO well abd soft, OK to d/c when cleared by primary JM JOHNS APRN Mar 08, 2018 09:42 TYLER PAK MD Mar 08, 2018 17:02
--- NOTE | 2018-03-08 10:25 | PDOC ---
PROGRESS NOTES History of Present Illness History of Present Illness Assessment/Plan Assessment/Plan impression 1. intractable vomiting resolved 2. ruq pain suspect viral syndrome, resolved The appendix measures up to 6 mm without adjacent inflammation. There is a couple mildly prominent loops of small bowel on the left side of the abdomen without a high-grade transition point. 3. morbid obesity 4. headache plan surgery consult noted abd sonogram reviewed npo iv fluid support serial exams sq lovenox dvt prophylaxis home today, see pcp this week Vitals Vitals Vital Signs Date Time Temp Pulse Resp B/P (MAP) Pulse Ox O2 Delivery O2 Flow Rate FiO2 03/08/18 07:14 93 Room Air 03/08/18 07:00 97.7 54 18 130/74 (92) 97.7 03/07/18 08:00 2.0 Physical Exam General: Alert, Oriented X3, Cooperative, No acute distress Heart: Regular rate, Normal S1, Normal S2, No murmurs Lungs: Clear, Other Abdomen: Normal bowel sounds, Soft, No tenderness, Other (ND) Extremities: No cyanosis Skin: No breakdown Labs LABS INDICATION : RUQ PAIN COMPARISON: One day prior TECHNIQUE: Multiple ultrasound images obtained through the abdomen in grayscale and color. FINDINGS: Liver: Echogenic appearance. Gallbladder: No wall thickening or stones. IVC: Partially distended at level of liver. Common Bile Duct: Not dilated. Pancreas: Largely obscured Right Kidney: No hydronephrosis. IMPRESSION: 1. No biliary ductal dilation or gallstones. 2. Liver is echogenic. Nonspecific but can be seen with fatty infiltration. Electronically signed by: Robert Perez MD (03/08/2018 4:14 AM) [facility] Laboratory Tests Test 03/07/18 21:00 03/08/18 06:55 03/08/18 07:19 Glucose (Fingerstick) 142 mg/dL (70-99) 102 mg/dL (70-99) White Blood Count 5.6 x10^3/uL (4.0-11.0) Red Blood Count 4.52 x10^6/uL (3.50-5.40) Hemoglobin 12.7 g/dL (12.0-15.5) Hematocrit 37.3 % (36.0-47.0) Mean Corpuscular Volume 83 fL (79-100) Mean Corpuscular Hemoglobin 28 pg (25-35) Mean Corpuscular Hemoglobin Concent 34 g/dL (31-37) Red Cell Distribution Width 15.1 % (11.5-14.5) Platelet Count 148 x10^3/uL (140-400) Neutrophils (%) (Auto) 34 % (31-73) Lymphocytes (%) (Auto) 45 % (24-48) Monocytes (%) (Auto) 8 % (0-9) Eosinophils (%) (Auto) 13 % (0-3) Basophils (%) (Auto) 0 % (0-3) Neutrophils # (Auto) 1.9 x10^3uL (1.8-7.7) Lymphocytes # (Auto) 2.5 x10^3/uL (1.0-4.8) Monocytes # (Auto) 0.5 x10^3/uL (0.0-1.1) Eosinophils # (Auto) 0.7 x10^3/uL (0.0-0.7) Basophils # (Auto) 0.0 x10^3/uL (0.0-0.2) Sodium Level 140 mmol/L (136-145) Potassium Level 3.4 mmol/L (3.5-5.1) Chloride Level 106 mmol/L (98-107) Carbon Dioxide Level 25 mmol/L (21-32) Anion Gap 9 (6-14) Blood Urea Nitrogen 7 mg/dL (7-20) Creatinine 0.8 mg/dL (0.6-1.0) Estimated GFR (Cockcroft-Gault) 73.4 Glucose Level 109 mg/dL (70-99) Calcium Level 8.1 mg/dL (8.5-10.1) Assessment and Plan Assessmemt and Plan Problems Medical Problems: (1) Intractable abdominal pain Status: Acute Comment Review of Relevant I have reviewed the following items chasity (where applicable) has been applied. Labs Laboratory Tests Test 03/06/18 22:04 03/06/18 22:58 03/07/18 21:00 03/08/18 06:55 White Blood Count 5.2 x10^3/uL (4.0-11.0) 5.6 x10^3/uL (4.0-11.0) Red Blood Count 5.33 x10^6/uL (3.50-5.40) 4.52 x10^6/uL (3.50-5.40) Hemoglobin 14.9 g/dL (12.0-15.5) 12.7 g/dL (12.0-15.5) Hematocrit 43.7 % (36.0-47.0) 37.3 % (36.0-47.0) Mean Corpuscular Volume 82 fL (79-100) 83 fL (79-100) Mean Corpuscular Hemoglobin 28 pg (25-35) 28 pg (25-35) Mean Corpuscular Hemoglobin Concent 34 g/dL (31-37) 34 g/dL (31-37) Red Cell Distribution Width 15.0 % (11.5-14.5) 15.1 % (11.5-14.5) Platelet Count 189 x10^3/uL (140-400) 148 x10^3/uL (140-400) Neutrophils (%) (Auto) 82 % (31-73) 34 % (31-73) Lymphocytes (%) (Auto) 13 % (24-48) 45 % (24-48) Monocytes (%) (Auto) 3 % (0-9) 8 % (0-9) Eosinophils (%) (Auto) 2 % (0-3) 13 % (0-3) Basophils (%) (Auto) 0 % (0-3) 0 % (0-3) Neutrophils # (Auto) 4.3 x10^3uL (1.8-7.7) 1.9 x10^3uL (1.8-7.7) Lymphocytes # (Auto) 0.7 x10^3/uL (1.0-4.8) 2.5 x10^3/uL (1.0-4.8) Monocytes # (Auto) 0.2 x10^3/uL (0.0-1.1) 0.5 x10^3/uL (0.0-1.1) Eosinophils # (Auto) 0.1 x10^3/uL (0.0-0.7) 0.7 x10^3/uL (0.0-0.7) Basophils # (Auto) 0.0 x10^3/uL (0.0-0.2) 0.0 x10^3/uL (0.0-0.2) Sodium Level 137 mmol/L (136-145) 140 mmol/L (136-145) Potassium Level 3.6 mmol/L (3.5-5.1) 3.4 mmol/L (3.5-5.1) Chloride Level 101 mmol/L (98-107) 106 mmol/L (98-107) Carbon Dioxide Level 24 mmol/L (21-32) 25 mmol/L (21-32) Anion Gap 12 (6-14) 9 (6-14) Blood Urea Nitrogen 18 mg/dL (7-20) 7 mg/dL (7-20) Creatinine 1.0 mg/dL (0.6-1.0) 0.8 mg/dL (0.6-1.0) Estimated GFR (Cockcroft-Gault) 56.7 73.4 BUN/Creatinine Ratio 18 (6-20) Glucose Level 197 mg/dL (70-99) 109 mg/dL (70-99) Calcium Level 8.3 mg/dL (8.5-10.1) 8.1 mg/dL (8.5-10.1) Total Bilirubin 0.5 mg/dL (0.2-1.0) Aspartate Amino Transf (AST/SGOT) 30 U/L (15-37) Alanine Aminotransferase (ALT/SGPT) 36 U/L (14-59) Alkaline Phosphatase 90 U/L (46-116) Troponin I Quantitative < 0.017 ng/mL (0.000-0.055) Total Protein 7.4 g/dL (6.4-8.2) Albumin 3.3 g/dL (3.4-5.0) Albumin/Globulin Ratio 0.8 (1.0-1.7) Lipase 211 U/L (73-393) Urine Collection Type Unknown Urine Color Yellow Urine Clarity Cloudy Urine pH 5.5 Urine Specific [place] >=1.030 Urine Protein Negative mg/dL (NEG-TRACE) Urine Glucose (UA) 100 mg/dL (NEG) Urine Ketones (Stick) Negative mg/dL (NEG) Urine Blood Negative (NEG) Urine Nitrite Negative (NEG) Urine Bilirubin Small (NEG) Urine Urobilinogen Dipstick 1.0 mg/dL (0.2 mg/dL) Urine Leukocyte Esterase Negative (NEG) Urine RBC Occ /HPF (0-2) Urine WBC Occ /HPF (0-4) Urine Squamous Epithelial Cells Few /LPF Urine Amorphous Sediment Present /HPF Urine Bacteria Few /HPF (0-FEW) Urine Mucus Mod /LPF Glucose (Fingerstick) 142 mg/dL (70-99) Test 03/08/18 07:19 Glucose (Fingerstick) 102 mg/dL (70-99) Laboratory Tests Test 03/07/18 21:00 03/08/18 06:55 03/08/18 07:19 Glucose (Fingerstick) 142 mg/dL (70-99) 102 mg/dL (70-99) White Blood Count 5.6 x10^3/uL (4.0-11.0) Red Blood Count 4.52 x10^6/uL (3.50-5.40) Hemoglobin 12.7 g/dL (12.0-15.5) Hematocrit 37.3 % (36.0-47.0) Mean Corpuscular Volume 83 fL (79-100) Mean Corpuscular Hemoglobin 28 pg (25-35) Mean Corpuscular Hemoglobin Concent 34 g/dL (31-37) Red Cell Distribution Width 15.1 % (11.5-14.5) Platelet Count 148 x10^3/uL (140-400) Neutrophils (%) (Auto) 34 % (31-73) Lymphocytes (%) (Auto) 45 % (24-48) Monocytes (%) (Auto) 8 % (0-9) Eosinophils (%) (Auto) 13 % (0-3) Basophils (%) (Auto) 0 % (0-3) Neutrophils # (Auto) 1.9 x10^3uL (1.8-7.7) Lymphocytes # (Auto) 2.5 x10^3/uL (1.0-4.8) Monocytes # (Auto) 0.5 x10^3/uL (0.0-1.1) Eosinophils # (Auto) 0.7 x10^3/uL (0.0-0.7) Basophils # (Auto) 0.0 x10^3/uL (0.0-0.2) Sodium Level 140 mmol/L (136-145) Potassium Level 3.4 mmol/L (3.5-5.1) Chloride Level 106 mmol/L (98-107) Carbon Dioxide Level 25 mmol/L (21-32) Anion Gap 9 (6-14) Blood Urea Nitrogen 7 mg/dL (7-20) Creatinine 0.8 mg/dL (0.6-1.0) Estimated GFR (Cockcroft-Gault) 73.4 Glucose Level 109 mg/dL (70-99) Calcium Level 8.1 mg/dL (8.5-10.1) Medications Current Medications Sodium Chloride 1,000 ml @ 1,000 mls/hr 1X ONCE IV Last administered on at 22:12; Start 03/06/18 at 22:00; Stop 03/06/18 at 22:59; Status DC Ondansetron HCl (Zofran) 4 mg 1X ONCE IV Last administered on 03/06/18at 22:11 ; Start 03/06/18 at 22:15; Stop 03/06/18 at 22:16; Status DC Dicyclomine HCl (Bentyl) 20 mg 1X ONCE IM Last administered on 03/06/18at 22:12 ; Start 03/06/18 at 22:15; Stop 03/06/18 at 22:16; Status DC Ondansetron HCl (Zofran) 4 mg 1X ONCE IV Last administered on 03/06/18at 23:33 ; Start 03/06/18 at 23:30; Stop 03/06/18 at 23:31; Status DC Fentanyl Citrate (Fentanyl 2ml Vial) 50 mcg 1X ONCE IV Last administered on at 23:33; Start 03/06/18 at 23:30; Stop 03/06/18 at 23:31; Status DC Iohexol (Omnipaque 300 Mg/ml) 60 ml 1X ONCE IV Last administered on 03/06/18at 23:41; Start 03/06/18 at 23:30; Stop 03/06/18 at 23:31; Status DC Info (CONTRAST GIVEN -- Rx MONITORING) 1 each PRN DAILY PRN MC SEE COMMENTS; Start 03/06/18 at 23:30; Stop 03/08/18 at 23:29 Ondansetron HCl (Zofran) 4 mg PRN Q8HRS PRN IV NAUSEA/VOMITING; Start 03/07/18 at 00:45; Stop 03/08/18 at 00:44; Status DC Fentanyl Citrate (Fentanyl 2ml Vial) 25 mcg PRN Q2HR PRN IV PAIN Last administered on 03/07/18 21:18; Start 03/07/18 at 00:45; Stop 03/08/18 at 00:44 ; Status DC Sodium Chloride 1,000 ml @ 100 mls/hr Q10H IV Last administered on 03/08/18 00:42; Start 03/07/18 at 00:45; Stop 03/08/18 at 00:44; Status DC Acetaminophen (Tylenol) 650 mg PRN Q6HRS PRN PO PAIN Last administered on 08:34; Start 03/07/18 at 09:15 Aspirin (Children'S Aspirin) 81 mg DAILY07 PO Last administered on 03/08/18 06 :31; Start 03/07/18 at 18:00 Bupropion HCl (Wellbutrin Sr) 150 mg BID PO Last administered on 03/08/18 08: 35; Start 03/07/18 at 21:00 Hydrochlorothiazide (Microzide) 12.5 mg DAILY PO Last administered on 08:35; Start 03/07/18 at 18:00 Trazodone HCl (Desyrel) 50 mg QHS PO Last administered on 03/07/18 22:14; Start 03/07/18 at 21:00 Albuterol Sulfate (Ventolin Neb Soln) 2.5 mg PRN Q6HRS PRN NEB SHORTNESS OF BREATH; Start 03/07/18 at 18:00 Benzonatate (Tessalon Perle) 100 mg [id number] PO Last administered on 03/08/18 08 :35; Start 03/07/18 at 21:00 Non-Formulary Medication (Benzonatate (Tessalon Perle)) 100 mg TID PRN PO COUGH ; Start 03/07/18 at 17:45; Stop 03/07/18 at 17:46; Status DC Pantoprazole Sodium (Protonix) 40 mg DAILYAC PO Last administered on 03/08/18 08:35; Start 03/07/18 at 18:00 Fentanyl Citrate (Fentanyl 2ml Vial) 25 mcg PRN Q2HR PRN IV PAIN Last administered on 03/08/18 06:31; Start 03/08/18 at 06:15 Acetaminophen/ Hydrocodone Bitart (Lortab 5/325) 1 tab 1X ONCE PO Last administered on 03/08/18at 09:59; Start 03/08/18 at 09:15; Stop 03/08/18 at 09:16 ; Status DC Active Scripts Active Pyridium (Phenazopyridine Hcl) 100 Mg Tablet 100 Mg PO TID Tessalon Perle (Benzonatate) 100 Mg Capsule 1 Cap PO TID Ventolin Hfa Inhaler (Albuterol Sulfate) 18 Gm Hfa.aer.ad 2 Puff INH Q4HRS Diclofenac Sodium 50 Mg Tablet.dr 50 Mg PO BID PRN 7 Days Tessalon Perle (Benzonatate) 100 Mg Capsule 100 Mg PO TID PRN Proair Respiclick (Albuterol Sulfate) 90 Mcg Aer.pow.ba 1 Puff IH PRN Q6HRS PRN Reported Children's Aspirin (Aspirin) 81 Mg Tab.chew 81 Mg PO DAILY Protonix (Pantoprazole Sodium) 20 Mg Tablet.dr 40 Mg PO DAILY Wellbutrin Sr (Bupropion Hcl) 150 Mg Tablet.er 1 Tab PO BID Trazodone Hcl 50 Mg Tablet 1 Tab PO QHS Hydrochlorothiazide Tablet (Hydrochlorothiazide) 25 Mg Tablet 12.5 Mg PO DAILY Metformin Hcl 500 Mg Tablet 1,000 Mg PO BID Vitals/I & O Vital Sign - Last 24 Hours 03/07/18 03/07/18 03/07/18 03/07/18 11:00 15:00 18:41 19:54 Temp 98.3 97.8 98.2 98.3 97.8 98.2 Pulse 55 59 89 Resp 18 20 18 B/P (MAP) 115/65 (82) 125/72 (89) 129/67 (87) Pulse Ox 95 95 96 O2 Delivery Room Air Room Air Room Air Room Air 03/07/18 03/07/18 03/07/18 03/07/18 20:00 21:18 21:48 23:03 Temp 97.8 97.8 Pulse 55 Resp 20 20 19 B/P (MAP) 110/60 (77) Pulse Ox 94 O2 Delivery Room Air Room Air Room Air Room Air 03/08/18 03/08/18 03/08/18 03/08/18 03:21 06:31 07:00 07:14 Temp 97.8 97.7 97.8 97.7 Pulse 60 54 Resp 18 20 18 B/P (MAP) 114/67 (83) 130/74 (92) Pulse Ox 95 96 93 O2 Delivery Room Air Room Air Room Air Room Air Intake and Output 03/07/18 03/07/18 03/08/18 15:00 23:00 07:00 Intake Total 0 ml 1970 ml Balance 0 ml 1970 ml CAITLIN LEWIS MD Mar 08, 2018 10:25
[2018-03-08 11:00] VITALS: BP 117/64
[2018-03-08] MEDS ORDERED: POTASSIUM CHLORIDE 20 MEQ TABLET.ER. PO ONE (11:00)
--- NOTE | 2018-03-08 14:27 | PDOC3 ---
Discharge Summary Date of Admission: Mar 06, 2018 Date of Discharge: Mar 08, 2018 Follow-Up: 3-5 days Admitting Diagnosis comment: discharge dx Assessment/Plan impression 1. intractable vomiting resolved 2. ruq pain suspect viral syndrome, resolved The appendix measures up to 6 mm without adjacent inflammation. There is a couple mildly prominent loops of small bowel on the left side of the abdomen without a high-grade transition point. 3. morbid obesity 4. headache plan surgery consult noted abd sonogram reviewed npo iv fluid support d/c serial exams sq lovenox dvt prophylaxis home today, see pcp this week Vitals on room air Vitals Vital Signs Date Time Temp Pulse Resp B/P (MAP) Pulse Ox O2 Delivery O2 Flow Rate FiO2 03/08/18 07:14 93 Room Air 03/08/18 07:00 97.7 54 18 130/74 (92) 97.7 03/07/18 08:00 2.0 Physical Exam General: Alert, Oriented X3, Cooperative, No acute distress Heart: Regular rate, Normal S1, Normal S2, No murmurs Lungs: Clear, Other Abdomen: Normal bowel sounds, Soft, No tenderness, Other (ND) Extremities: No cyanosis Skin: No breakdown Labs LABS INDICATION : RUQ PAIN COMPARISON: One day prior TECHNIQUE: Multiple ultrasound images obtained through the abdomen in grayscale and color. FINDINGS: Liver: Echogenic appearance. Gallbladder: No wall thickening or stones. IVC: Partially distended at level of liver. Common Bile Duct: Not dilated. Pancreas: Largely obscured Right Kidney: No hydronephrosis. IMPRESSION: 1. No biliary ductal dilation or gallstones. 2. Liver is echogenic. Nonspecific but can be seen with fatty infiltration. FINAL DIAGNOSIS Problems Medical Problems: (1) Intractable abdominal pain Status: Acute Brief Hospital Course Ms. Schmidt is a 58 old [sex] who presented with [ ] Discharge Medications Current Medications Sodium Chloride 1,000 ml @ 1,000 mls/hr 1X ONCE IV Last administered on at 22:12; Start 03/06/18 at 22:00; Stop 03/06/18 at 22:59; Status DC Ondansetron HCl (Zofran) 4 mg 1X ONCE IV Last administered on 03/06/18at 22:11 ; Start 03/06/18 at 22:15; Stop 03/06/18 at 22:16; Status DC Dicyclomine HCl (Bentyl) 20 mg 1X ONCE IM Last administered on 03/06/18at 22:12 ; Start 03/06/18 at 22:15; Stop 03/06/18 at 22:16; Status DC Ondansetron HCl (Zofran) 4 mg 1X ONCE IV Last administered on 03/06/18at 23:33 ; Start 03/06/18 at 23:30; Stop 03/06/18 at 23:31; Status DC Fentanyl Citrate (Fentanyl 2ml Vial) 50 mcg 1X ONCE IV Last administered on at 23:33; Start 03/06/18 at 23:30; Stop 03/06/18 at 23:31; Status DC Iohexol (Omnipaque 300 Mg/ml) 60 ml 1X ONCE IV Last administered on 03/06/18at 23:41; Start 03/06/18 at 23:30; Stop 03/06/18 at 23:31; Status DC Info (CONTRAST GIVEN -- Rx MONITORING) 1 each PRN DAILY PRN MC SEE COMMENTS; Start 03/06/18 at 23:30; Stop 03/08/18 at 23:29 Ondansetron HCl (Zofran) 4 mg PRN Q8HRS PRN IV NAUSEA/VOMITING; Start 03/07/18 at 00:45; Stop 03/08/18 at 00:44; Status DC Fentanyl Citrate (Fentanyl 2ml Vial) 25 mcg PRN Q2HR PRN IV PAIN Last administered on 03/07/18at 21:18; Start 03/07/18 at 00:45; Stop 03/08/18 at 00:44 ; Status DC Sodium Chloride 1,000 ml @ 100 mls/hr Q10H IV Last administered on 03/08/18at 00:42; Start 03/07/18 at 00:45; Stop 03/08/18 at 00:44; Status DC Acetaminophen (Tylenol) 650 mg PRN Q6HRS PRN PO PAIN Last administered on at 08:34; Start 03/07/18 at 09:15 Aspirin (Children'S Aspirin) 81 mg DAILY07 PO Last administered on 03/08/18at 06 :31; Start 03/07/18 at 18:00 Bupropion HCl (Wellbutrin Sr) 150 mg BID PO Last administered on 03/08/18at 08: 35; Start 03/07/18 at 21:00 Hydrochlorothiazide (Microzide) 12.5 mg DAILY PO Last administered on at 08:35; Start 03/07/18 at 18:00 Trazodone HCl (Desyrel) 50 mg QHS PO Last administered on 03/07/18at 22:14; Start 03/07/18 at 21:00 Albuterol Sulfate (Ventolin Neb Soln) 2.5 mg PRN Q6HRS PRN NEB SHORTNESS OF BREATH; Start 03/07/18 at 18:00 Benzonatate (Tessalon Perle) 100 mg [id number] PO Last administered on 03/08/18at 14 :15; Start 03/07/18 at 21:00 Non-Formulary Medication (Benzonatate (Tessalon Perle)) 100 mg TID PRN PO COUGH ; Start 03/07/18 at 17:45; Stop 03/07/18 at 17:46; Status DC Pantoprazole Sodium (Protonix) 40 mg DAILYAC PO Last administered on 03/08/18at 08:35; Start 03/07/18 at 18:00 Fentanyl Citrate (Fentanyl 2ml Vial) 25 mcg PRN Q2HR PRN IV PAIN Last administered on 03/08/18at 06:31; Start 03/08/18 at 06:15 Acetaminophen/ Hydrocodone Bitart (Lortab 5/325) 1 tab 1X ONCE PO Last administered on 03/08/18at 09:59; Start 03/08/18 at 09:15; Stop 03/08/18 at 09:16 ; Status DC Potassium Chloride (Klor-Con) 40 meq 1X ONCE PO ; Start 03/08/18 at 11:00; Stop 03/08/18 at 11:01; Status DC Potassium Chloride (Klor-Con) 20 meq [id number] PO ; Start 03/09/18 at 08:00 Active Scripts Active Pyridium (Phenazopyridine Hcl) 100 Mg Tablet 100 Mg PO TID Tessalon Perle (Benzonatate) 100 Mg Capsule 1 Cap PO TID Ventolin Hfa Inhaler (Albuterol Sulfate) 18 Gm Hfa.aer.ad 2 Puff INH Q4HRS Diclofenac Sodium 50 Mg Tablet.dr 50 Mg PO BID PRN 7 Days Tessalon Perle (Benzonatate) 100 Mg Capsule 100 Mg PO TID PRN Proair Respiclick (Albuterol Sulfate) 90 Mcg Aer.pow.ba 1 Puff IH PRN Q6HRS PRN Reported Children's Aspirin (Aspirin) 81 Mg Tab.chew 81 Mg PO DAILY Protonix (Pantoprazole Sodium) 20 Mg Tablet.dr 40 Mg PO DAILY Wellbutrin Sr (Bupropion Hcl) 150 Mg Tablet.er 1 Tab PO BID Trazodone Hcl 50 Mg Tablet 1 Tab PO QHS Hydrochlorothiazide Tablet (Hydrochlorothiazide) 25 Mg Tablet 12.5 Mg PO DAILY Metformin Hcl 500 Mg Tablet 1,000 Mg PO BID Vital Signs Vital Signs Date Time Temp Pulse Resp B/P (MAP) Pulse Ox O2 Delivery O2 Flow Rate FiO2 03/08/18 11:00 98.0 57 18 117/64 (81) 95 Room Air 98.0 03/07/18 08:00 2.0 Labs Laboratory Tests Test 03/06/18 22:04 03/06/18 22:58 03/07/18 21:00 03/08/18 06:55 White Blood Count 5.2 x10^3/uL (4.0-11.0) 5.6 x10^3/uL (4.0-11.0) Red Blood Count 5.33 x10^6/uL (3.50-5.40) 4.52 x10^6/uL (3.50-5.40) Hemoglobin 14.9 g/dL (12.0-15.5) 12.7 g/dL (12.0-15.5) Hematocrit 43.7 % (36.0-47.0) 37.3 % (36.0-47.0) Mean Corpuscular Volume 82 fL (79-100) 83 fL (79-100) Mean Corpuscular Hemoglobin 28 pg (25-35) 28 pg (25-35) Mean Corpuscular Hemoglobin Concent 34 g/dL (31-37) 34 g/dL (31-37) Red Cell Distribution Width 15.0 % (11.5-14.5) 15.1 % (11.5-14.5) Platelet Count 189 x10^3/uL (140-400) 148 x10^3/uL (140-400) Neutrophils (%) (Auto) 82 % (31-73) 34 % (31-73) Lymphocytes (%) (Auto) 13 % (24-48) 45 % (24-48) Monocytes (%) (Auto) 3 % (0-9) 8 % (0-9) Eosinophils (%) (Auto) 2 % (0-3) 13 % (0-3) Basophils (%) (Auto) 0 % (0-3) 0 % (0-3) Neutrophils # (Auto) 4.3 x10^3uL (1.8-7.7) 1.9 x10^3uL (1.8-7.7) Lymphocytes # (Auto) 0.7 x10^3/uL (1.0-4.8) 2.5 x10^3/uL (1.0-4.8) Monocytes # (Auto) 0.2 x10^3/uL (0.0-1.1) 0.5 x10^3/uL (0.0-1.1) Eosinophils # (Auto) 0.1 x10^3/uL (0.0-0.7) 0.7 x10^3/uL (0.0-0.7) Basophils # (Auto) 0.0 x10^3/uL (0.0-0.2) 0.0 x10^3/uL (0.0-0.2) Sodium Level 137 mmol/L (136-145) 140 mmol/L (136-145) Potassium Level 3.6 mmol/L (3.5-5.1) 3.4 mmol/L (3.5-5.1) Chloride Level 101 mmol/L (98-107) 106 mmol/L (98-107) Carbon Dioxide Level 24 mmol/L (21-32) 25 mmol/L (21-32) Anion Gap 12 (6-14) 9 (6-14) Blood Urea Nitrogen 18 mg/dL (7-20) 7 mg/dL (7-20) Creatinine 1.0 mg/dL (0.6-1.0) 0.8 mg/dL (0.6-1.0) Estimated GFR (Cockcroft-Gault) 56.7 73.4 BUN/Creatinine Ratio 18 (6-20) Glucose Level 197 mg/dL (70-99) 109 mg/dL (70-99) Calcium Level 8.3 mg/dL (8.5-10.1) 8.1 mg/dL (8.5-10.1) Total Bilirubin 0.5 mg/dL (0.2-1.0) Aspartate Amino Transf (AST/SGOT) 30 U/L (15-37) Alanine Aminotransferase (ALT/SGPT) 36 U/L (14-59) Alkaline Phosphatase 90 U/L (46-116) Troponin I Quantitative < 0.017 ng/mL (0.000-0.055) Total Protein 7.4 g/dL (6.4-8.2) Albumin 3.3 g/dL (3.4-5.0) Albumin/Globulin Ratio 0.8 (1.0-1.7) Lipase 211 U/L (73-393) Urine Collection Type Unknown Urine Color Yellow Urine Clarity Cloudy Urine pH 5.5 Urine Specific [place] >=1.030 Urine Protein Negative mg/dL (NEG-TRACE) Urine Glucose (UA) 100 mg/dL (NEG) Urine Ketones (Stick) Negative mg/dL (NEG) Urine Blood Negative (NEG) Urine Nitrite Negative (NEG) Urine Bilirubin Small (NEG) Urine Urobilinogen Dipstick 1.0 mg/dL (0.2 mg/dL) Urine Leukocyte Esterase Negative (NEG) Urine RBC Occ /HPF (0-2) Urine WBC Occ /HPF (0-4) Urine Squamous Epithelial Cells Few /LPF Urine Amorphous Sediment Present /HPF Urine Bacteria Few /HPF (0-FEW) Urine Mucus Mod /LPF Glucose (Fingerstick) 142 mg/dL (70-99) Test 03/08/18 07:19 03/08/18 11:36 Glucose (Fingerstick) 102 mg/dL (70-99) 149 mg/dL (70-99) Laboratory Tests Test 03/07/18 21:00 03/08/18 06:55 03/08/18 07:19 03/08/18 11:36 Glucose (Fingerstick) 142 mg/dL (70-99) 102 mg/dL (70-99) 149 mg/dL (70-99) White Blood Count 5.6 x10^3/uL (4.0-11.0) Red Blood Count 4.52 x10^6/uL (3.50-5.40) Hemoglobin 12.7 g/dL (12.0-15.5) Hematocrit 37.3 % (36.0-47.0) Mean Corpuscular Volume 83 fL (79-100) Mean Corpuscular Hemoglobin 28 pg (25-35) Mean Corpuscular Hemoglobin Concent 34 g/dL (31-37) Red Cell Distribution Width 15.1 % (11.5-14.5) Platelet Count 148 x10^3/uL (140-400) Neutrophils (%) (Auto) 34 % (31-73) Lymphocytes (%) (Auto) 45 % (24-48) Monocytes (%) (Auto) 8 % (0-9) Eosinophils (%) (Auto) 13 % (0-3) Basophils (%) (Auto) 0 % (0-3) Neutrophils # (Auto) 1.9 x10^3uL (1.8-7.7) Lymphocytes # (Auto) 2.5 x10^3/uL (1.0-4.8) Monocytes # (Auto) 0.5 x10^3/uL (0.0-1.1) Eosinophils # (Auto) 0.7 x10^3/uL (0.0-0.7) Basophils # (Auto) 0.0 x10^3/uL (0.0-0.2) Sodium Level 140 mmol/L (136-145) Potassium Level 3.4 mmol/L (3.5-5.1) Chloride Level 106 mmol/L (98-107) Carbon Dioxide Level 25 mmol/L (21-32) Anion Gap 9 (6-14) Blood Urea Nitrogen 7 mg/dL (7-20) Creatinine 0.8 mg/dL (0.6-1.0) Estimated GFR (Cockcroft-Gault) 73.4 Glucose Level 109 mg/dL (70-99) Calcium Level 8.1 mg/dL (8.5-10.1) Allergies Allergies Coded Allergies Type Severity Reaction Last Updated Verified prednisone Adverse Reaction Mild "It upsets my stomach." 10/30/17 Yes Disposition/Orders: D/C to Home Patient Instructions d/c planning 36 min CAITLIN LEWIS MD Mar 08, 2018 14:27
--- NOTE | 2018-03-08 14:29 | DISCH ---
DISCHARGE INSTRUCTIONS Condition on Discharge Condition on Discharge: Stable Activity After Discharge Activity Instructions for Disc: Resume previous activity Lifting Instructions after Dis: No heavy lifting, No pulling or pushing Exercise Instruction after Dis: Walk 10 min, 3 x per day Driving Instructions after Dis: Do not drive today Diet after Discharge Diet after Discharge: Full Liquid, Diabetic No Calorie Level Checks after Discharge Checks after discharge: Check blood press - daily Contacting the DR. after DC Call your doctor for: If your condition worsens CAITLIN LEWIS MD Mar 08, 2018 14:29
[2018-03-08] MEDS ORDERED: CIPR250T30 PO (14:34)
[2018-03-08] MEDS ORDERED: POTA20TA4 PO (14:34)
[2018-03-08 15:00] VITALS: BP 108/65
[2018-03-09] MEDS ORDERED: POTASSIUM CHLORIDE 20 MEQ TABLET.ER. PO SCH (08:00)
== END 2018-03-08 15:58 | disposition home or self-care (01) | DRG 949 ==
LOC: ER 21:31 → 4 NORTH 03-07 00:27
PROVIDERS: ADMIT Hospitalist; ATTEND Hospitalist
DX: Z79.899 Other long term (current) drug therapy (principal); Z68.41 Body mass index [BMI] 40.0-44.9, adult; A08.4 Viral intestinal infection, unspecified; E11.9 Type 2 diabetes mellitus without complications; E66.01 Morbid (severe) obesity due to excess calories; E78.00 Pure hypercholesterolemia, unspecified; F17.210 Nicotine dependence, cigarettes, uncomplicated; I10 Essential (primary) hypertension; J44.9 Chronic obstructive pulmonary disease, unspecified; G89.29 Other chronic pain; M48.00 Spinal stenosis, site unspecified; Z82.49 Family history of ischemic heart disease and other diseases of the circulatory system; Z82.5 Family history of asthma and other chronic lower respiratory diseases; Z90.710 Acquired absence of both cervix and uterus; Z88.8 Allergy status to other drugs, medicaments and biological substances
CPT/HCPCS: 36415; 74177; 76705; 80048; 80053; 81001; 82962; 83690; 84484; 85025; 93005; 94760; 96372; 96374; 96375; 96376; J0500; J2405; J3010; J7030; Q9967; 99285-25

== ENCOUNTER 2018-04-18 18:45 | Emergency (ER) | payer OTHER ==
[~2018-04-18] VITALS: Ht 165.1 cm; Wt 102.1 kg
[~2018-04-18 18:45] MED LIST changes: +CIPR250T30 PO; +POTA20TA4 PO; +TRAZ-118 PO; -TRAZ-85 PO
[2018-04-18 19:20] VITALS: BP 144/84
[2018-04-18] MEDS ORDERED: IPRATRPIUM/ALBUTEROL 0.5/2.5MG 3 ML NEBU. NEB ONE (20:15)
[2018-04-18] MEDS ORDERED: methylPREDNISolone ACETATE 80 MG/ML VIAL. IM ONE (20:15)
[2018-04-18] MEDS ORDERED: AZIT250T PO (20:23)
--- NOTE | 2018-04-18 20:24 | PHYS DOC ---
Past Medical History Past Medical History: Asthma, Bronchitis, COPD, Diabetes-Type II, High Cholesterol Additional Past Medical Histor: CHRONIC PAIN Past Surgical History: Hysterectomy Additional Past Surgical Histo: ABD HERNIA, EYE SURGERY, CARPAL TUNNEL RELEASE : R Alcohol Use: Rarely Drug Use: None Adult General Chief Complaint Chief Complaint: Congestion HPI HPI Patient is a 58 year old female who presents with congestion, sneezing, cough and shortness of air. The patient is a smoker. She states that this feels like bronchitis. She denies chest pain or diaphoresis. She denies fever, sore throat or earaches. She has been using her Proair inhaler with moderate relief. The patient states she is unable to take prednisone orally because it causes stomach upset. Review of Systems Review of Systems Constitutional: Denies fever or chills [] Eyes: Denies change in visual acuity, redness, or eye pain [] HENT: See history of present illness Respiratory: See history of present illness Cardiovascular: No additional information not addressed in HPI [] GI: Denies abdominal pain, nausea, vomiting, bloody stools or diarrhea [] : Denies dysuria or hematuria [] Musculoskeletal: Denies back pain or joint pain [] Integument: Denies rash or skin lesions [] Neurologic: Denies headache, focal weakness or sensory changes [] Endocrine: Denies polyuria or polydipsia [] All other systems were reviewed and found to be within normal limits, except as documented in this note. Current Medications Current Medications Current Medications Medications (Trade) Dose Ordered Sig/[facility] Start Time Stop Time Status Last Admin Dose Admin Albuterol/ Ipratropium (Duoneb) 3 ml 1X ONCE 04/18/18 20:15 04/18/18 20:16 DC 04/18/18 19:49 3 ML Methylprednisolone Acetate (DEPO-Medrol 80MG VIAL) 80 mg 1X ONCE 04/18/18 20:15 04/18/18 20:16 DC 04/18/18 20:10 80 MG Allergies Allergies Allergies Coded Allergies Type Severity Reaction Last Updated Verified Penicillins Allergy Unknown 04/18/18 Yes prednisone Adverse Reaction Mild "It upsets my stomach." 10/30/17 Yes Physical Exam Physical Exam Constitutional: Well developed, well nourished, no acute distress, non-toxic appearance. [] HENT: Normocephalic, atraumatic, bilateral external ears normal, oropharynx moist, no oral exudates, nose normal. [] Eyes: PERRLA, EOMI, conjunctiva normal, no discharge. [] Neck: Normal range of motion, no tenderness, supple, no stridor. [] Cardiovascular:Heart rate regular rhythm, no murmur [] Lungs & Thorax: Bilateral breath sounds are decreased throughout Abdomen: Bowel sounds normal, soft, no tenderness, no masses, no pulsatile masses. [] Skin: Warm, dry, no erythema, no rash. [] Back: No tenderness, no CVA tenderness. [] Extremities: No tenderness, no cyanosis, no clubbing, ROM intact, no edema. [] Neurologic: Alert and oriented X 3, normal motor function, normal sensory function, no focal deficits noted. [] Psychologic: Affect normal, judgement normal, mood normal. [] Current Patient Data Vital Signs Vital Signs Date Time Temp Pulse Resp B/P (MAP) Pulse Ox O2 Delivery O2 Flow Rate FiO2 04/18/18 19:50 95 Room Air 04/18/18 19:20 97.7 81 16 144/84 (104) 97.7 EKG EKG [] Radiology/Procedures Radiology/Procedures [] Course & Med Decision Making Course & Med Decision Making Pertinent Labs and Imaging studies reviewed. (See chart for details) []The patient was given a dose of IM and prednisone. She was also given a DuoNeb breathing treatment. This has improved her symptoms. Dragon Disclaimer Dragon Disclaimer This electronic medical record was generated, in whole or in part, using a voice recognition dictation system. Departure Departure Impression: Primary Impression: Acute bronchitis Additional Impression: Upper respiratory infection Disposition: 01 HOME, SELF-CARE Condition: STABLE Referrals: GAMAL CELIS (PCP) Patient Instructions: Acute Bronchitis Additional Instructions: Take medications as directed. Follow-up with your primary care provider in 4 days for a recheck if not improving or sooner if worsening. Scripts Azithromycin (ZITHROMAX) 250 Mg Tablet 1 PKG PO UD for bronchitis, #1 PKG Prov: MEENA CLARK APRN 04/18/18 Problem Qualifiers MEENA CLARK APRN Apr 18, 2018 20:23
== END 2018-04-18 20:30 | disposition home or self-care (01) ==
LOC: ER 18:45
DX: J20.9 Acute bronchitis, unspecified (principal); J06.9 Acute upper respiratory infection, unspecified; J44.9 Chronic obstructive pulmonary disease, unspecified; E11.9 Type 2 diabetes mellitus without complications; E78.00 Pure hypercholesterolemia, unspecified; Z90.710 Acquired absence of both cervix and uterus; Z88.0 Allergy status to penicillin; Z88.8 Allergy status to other drugs, medicaments and biological substances
CPT/HCPCS: 94640; 96372; 99283; J1040; J7620

== ENCOUNTER 2018-05-31 08:15 | Emergency (ER) | payer OTHER ==
[~2018-05-31] VITALS: Ht 165.1 cm; Wt 106.6 kg
[~2018-05-31 08:15] MED LIST changes: +AZIT250T PO
[2018-05-31] MEDS ORDERED: fentaNYL PF VIAL 100 MCG/2 ML VIAL IV ONE (08:45)
--- NOTE | 2018-05-31 08:49 | PHYS DOC ---
Past Medical History Past Medical History: Asthma, Bronchitis, COPD, Diabetes-Type II, High Cholesterol Additional Past Medical Histor: CHRONIC PAIN Past Surgical History: Hysterectomy Additional Past Surgical Histo: ABD HERNIA, EYE SURGERY, CARPAL TUNNEL RELEASE : R Alcohol Use: Rarely Drug Use: None Adult General Chief Complaint Chief Complaint: ABDOMINAL PAIN HPI HPI 58 y/o female presents to ER via POV for c/o rt side pain radiating into rt lower back. Pt reports pain started on Sat. night and has been constant- with increased pain with repositioning and palp. of rt side/rt flank area. She denies urinary sxs, N/V, or abd pain. She reports she had sm. amt of diarrhea over the weekend denies any today. 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 She denies CP/SOA. She denies taking any OTC meds for sxs today. She reports she took Ibuprofen yest. with some improvement in pain. She denies flu like illness. She denies recent travel. Review of Systems Review of Systems Constitutional: Denies fever or chills [] Eyes: Denies change in visual acuity, redness, or eye pain [] HENT: Denies nasal congestion or sore throat [] Respiratory: Denies cough or shortness of breath [] Cardiovascular: No additional information not addressed in HPI [] GI: Denies abdominal pain, nausea, vomiting, or bloody stools. Reports sm. amt of diarrhea over weekend- denies episodes today. Reports rt side pain into rt flank : Denies dysuria or hematuria. Denies vaginal sxs- has had Hyster. Musculoskeletal: Denies back pain or joint pain [] Integument: Denies rash, swelling or skin lesions [] Neurologic: Denies headache, focal weakness or sensory changes [] All other systems were reviewed and found to be within normal limits, except as documented in this note. Current Medications Current Medications Current Medications Medications (Trade) Dose Ordered Sig/[facility] Start Time Stop Time Status Last Admin Dose Admin Fentanyl Citrate (Fentanyl 2ml Vial) 25 mcg 1X ONCE 05/31/18 08:45 05/31/18 08:46 DC 05/31/18 09:06 25 MCG Allergies Allergies Allergies Coded Allergies Type Severity Reaction Last Updated Verified Penicillins Allergy Unknown 04/18/18 Yes prednisone Adverse Reaction Mild "It upsets my stomach." 10/30/17 Yes Physical Exam Physical Exam Constitutional: Well developed, well nourished, no acute distress, non-toxic appearance. [] HENT: Normocephalic, atraumatic, oropharynx moist, nose normal. [] Eyes: Pupils equal, conjunctiva normal, no discharge. [] Neck: Normal range of motion, no tenderness, supple, no stridor. [] Cardiovascular: Heart rate regular rhythm, no murmur [] Lungs & Thorax: Bilateral breath sounds clear to auscultation. Resp. equal/ nonlabored Abdomen: Bowel sounds normal, soft, no tenderness- no rebound tenderness Skin: Warm, dry, no erythema, no rash. [] Back: No tenderness, rt side CVA tenderness with tenderness in rt lateral side- no crepitus. No lt side CVA tenderness. Full ROM of back without facial grimacing Extremities: No tenderness, no cyanosis, no clubbing, ROM intact, no edema. [] Neurologic: Alert and oriented X 3, normal motor function, normal sensory function, no focal deficits noted. [] Psychologic: Affect normal, judgement normal, mood normal. [] Current Patient Data Vital Signs Vital Signs Date Time Temp Pulse Resp B/P (MAP) Pulse Ox O2 Delivery O2 Flow Rate FiO2 05/31/18 10:35 58 27 130/67 (88) 97 Room Air 05/31/18 08:17 97.5 97.5 Lab Values Laboratory Tests Test 05/31/18 08:25 05/31/18 09:05 Urine Collection Type Unknown Urine Color Yellow Urine Clarity Clear Urine pH 5.5 Urine Specific [place] 1.020 Urine Protein Negative mg/dL (NEG-TRACE) Urine Glucose (UA) Negative mg/dL (NEG) Urine Ketones (Stick) Negative mg/dL (NEG) Urine Blood Negative (NEG) Urine Nitrite Negative (NEG) Urine Bilirubin Negative (NEG) Urine Urobilinogen Dipstick 0.2 mg/dL (0.2 mg/dL) Urine Leukocyte Esterase Negative (NEG) Urine RBC Occ /HPF (0-2) Urine WBC 1-4 /HPF (0-4) Urine Squamous Epithelial Cells Many /LPF Urine Bacteria Few /HPF (0-FEW) Urine Mucus Mod /LPF White Blood Count 8.4 x10^3/uL (4.0-11.0) Red Blood Count 5.07 x10^6/uL (3.50-5.40) Hemoglobin 13.6 g/dL (12.0-15.5) Hematocrit 41.6 % (36.0-47.0) Mean Corpuscular Volume 82 fL (79-100) Mean Corpuscular Hemoglobin 27 pg (25-35) Mean Corpuscular Hemoglobin Concent 33 g/dL (31-37) Red Cell Distribution Width 14.6 % (11.5-14.5) H Platelet Count 188 x10^3/uL (140-400) Neutrophils (%) (Auto) 59 % (31-73) Lymphocytes (%) (Auto) 31 % (24-48) Monocytes (%) (Auto) 6 % (0-9) Eosinophils (%) (Auto) 3 % (0-3) Basophils (%) (Auto) 1 % (0-3) Neutrophils # (Auto) 5.0 x10^3uL (1.8-7.7) Lymphocytes # (Auto) 2.6 x10^3/uL (1.0-4.8) Monocytes # (Auto) 0.5 x10^3/uL (0.0-1.1) Eosinophils # (Auto) 0.3 x10^3/uL (0.0-0.7) Basophils # (Auto) 0.1 x10^3/uL (0.0-0.2) Sodium Level 140 mmol/L (136-145) Potassium Level 3.9 mmol/L (3.5-5.1) Chloride Level 102 mmol/L (98-107) Carbon Dioxide Level 27 mmol/L (21-32) Anion Gap 11 (6-14) Blood Urea Nitrogen 12 mg/dL (7-20) Creatinine 0.9 mg/dL (0.6-1.0) Estimated GFR (Cockcroft-Gault) 64.1 BUN/Creatinine Ratio 13 (6-20) Glucose Level 126 mg/dL (70-99) H Calcium Level 9.1 mg/dL (8.5-10.1) Total Bilirubin 0.4 mg/dL (0.2-1.0) Aspartate Amino Transferase (AST) 24 U/L (15-37) Alanine Aminotransferase (ALT) 40 U/L (14-59) Alkaline Phosphatase 100 U/L (46-116) Total Protein 7.6 g/dL (6.4-8.2) Albumin 3.4 g/dL (3.4-5.0) Albumin/Globulin Ratio 0.8 (1.0-1.7) L Laboratory Tests 05/31/18 09:05 Laboratory Tests 05/31/18 09:05 EKG EKG [] Radiology/Procedures Radiology/Procedures [] Course & Med Decision Making Course & Med Decision Making Pertinent Labs reviewed. (See chart for details) Pt was evaluated in the ER for complaints of right side pain which radiated into her right lower back. Test results were discussed with patient with labs unremarkable and UA negative for infection. Patient was provided with dose of fentanyl while in the ER which she reported did improve her pain. Patient's daughter arrived at bedside and stated patient has Flexeril at home which she takes for muscle strains similar to what patient is experiencing currently. Patient had not mentioned this during initial discussion. Discussed with lab results and improved pain she would be discharge with pt to f/u with PCP for re- evaluation and further care. Pt was in no visible distress during discharge discussion and is comfortable with home discharge without further testing/care as her pain has improved. Education provided on s&s to return to ER for and discharge instructions were discussed. Dragon Disclaimer Dragon Disclaimer This electronic medical record was generated, in whole or in part, using a voice recognition dictation system. Departure Departure Impression: Primary Impression: Abdominal pain Additional Impression: Muscle strain Disposition: 01 HOME, SELF-CARE Condition: STABLE Referrals: GAMAL CELIS (PCP) Patient Instructions: Abdominal Pain (Nonspecific), Muscle Strain Additional Instructions: As discussed Tylenol and/or ibuprofen as directed on container for pain control as needed. You can take your prescribed Flexeril as described. Ice and/or heat compress to affected area every 3-4 hours for 20-30 minutes at a time as needed. Avoid ice contact to skin. If symptoms persist follow-up with your primary care physician in 2-3 days- sooner with any concerns. Problem Qualifiers HILTON TAPIA APRN May 31, 2018 08:49
[2018-05-31 08:50] LABS: BILIRUBIN,URINE NEGATIVE (NEG); CLARITY,URINE CLEAR; COLOR,URINE YELLOW; NITRITE,URINE NEGATIVE (NEG); PH,URINE 5.5; PROTEIN,URINE NEGATIVE (NEG-TRACE); UROBILINOGEN,URINE 0.2 mg/dL (0.2 mg/dL)
[2018-05-31 09:12] LABS: BACTERIA,URINE FEW /HPF (0-FEW); RBC,URINE OCC /HPF (0-2); SQUAMOUS EPITHELIAL CELL,UR MANY /LPF
[2018-05-31 09:17] LABS: BASO # 0.1 x10^3/uL (0.0-0.2); BASO % 1 % (0-3); EOS # 0.3 x10^3/uL (0.0-0.7); EOS % 3 % (0-3); HEMATOCRIT 41.6 % (36.0-47.0); HEMOGLOBIN 13.6 g/dL (12.0-15.5); LYMPH # 2.6 x10^3/uL (1.0-4.8); LYMPH % 31 % (24-48); MEAN CORPUSCULAR HEMOGLOBIN 27 pg (25-35); MEAN CORPUSCULAR HGB CONC 33 g/dL (31-37); MEAN CORPUSCULAR VOLUME 82 fL (79-100); MONO # 0.5 x10^3/uL (0.0-1.1); MONO % 6 % (0-9); NEUT % 59 % (31-73); PLATELET COUNT 188 x10^3/uL (140-400); RED BLOOD COUNT 5.07 x10^6/uL (3.50-5.40); RED CELL DISTRIBUTION WIDTH 14.6 % (11.5-14.5); WHITE BLOOD COUNT 8.4 x10^3/uL (4.0-11.0)
[2018-05-31 09:32] LABS: CALCIUM 9.1 mg/dL (8.5-10.1); CREATININE 0.9 mg/dL (0.6-1.0); GFR 64.1; POTASSIUM 3.9 mmol/L (3.5-5.1)
[2018-05-31 09:40] LABS: ALBUMIN 3.4 g/dL (3.4-5.0); ALBUMIN/GLOBULIN RATIO 0.8 (1.0-1.7); TOTAL BILIRUBIN 0.4 mg/dL (0.2-1.0); TOTAL PROTEIN 7.6 g/dL (6.4-8.2)
[2018-05-31 10:35] VITALS: BP 130/67
== END 2018-05-31 10:30 | disposition home or self-care (01) ==
LOC: ER 08:15
DX: S39.012A Strain of muscle, fascia and tendon of lower back, initial encounter (principal); J44.9 Chronic obstructive pulmonary disease, unspecified; E11.9 Type 2 diabetes mellitus without complications; E78.00 Pure hypercholesterolemia, unspecified; G89.29 Other chronic pain; R19.7 Diarrhea, unspecified; R10.9 Unspecified abdominal pain; Z98.890 Other specified postprocedural states; Z90.710 Acquired absence of both cervix and uterus; Z88.0 Allergy status to penicillin; Z88.5 Allergy status to narcotic agent; X58.XXXA Exposure to other specified factors, initial encounter; Y93.89 Activity, other specified; Y92.69 Other specified industrial and construction area as the place of occurrence of the external cause; Y99.8 Other external cause status
CPT/HCPCS: 36415; 80053; 81001; 85025; 96374; 99283; J3010

== ENCOUNTER → 2018-07-30 | Outpatient (CLI) | payer OTHER ==
--- NOTE | 2018-07-30 14:00 | RAD ---
2 view abdominal series Clinical indications: Right flank pain for 4 months. FINDINGS: Moderate fecal retention is seen throughout the colon and rectosigmoid region. No obstructive bowel pattern is seen. No air-fluid levels are seen. No free intraperitoneal air is seen. No radiopaque stone is evident within either kidney. Multiple calcified phleboliths of the right side of the anatomic pelvis are seen. IMPRESSION: Moderate fecal retention. Electronically signed by: Curtis Novak MD (07/30/2018 1:57 PM) [place] [id number]
== END | disposition home or self-care (01) ==
LOC: RAD 08:57
PROVIDERS: ATTEND Internal Medicine
DX: K59.00 Constipation, unspecified (principal); I87.8 Other specified disorders of veins
CPT/HCPCS: 74021

== ENCOUNTER → 2018-08-17 | Outpatient (CLI) | payer OTHER ==
--- NOTE | 2018-08-17 13:29 | RAD ---
DATE: 08/17/2018 EXAM: MAMMO ERWINAleshia ARGUETAAT, BREAST LEFT HISTORY: Follow-up of abnormalities reported on previous ultrasound and mammogram exams. COMPARISON: 06/16/2017 screening mammographic exam, left breast ultrasound exams dated 09/22/2017 and 10/08/2017 This study was interpreted with the benefit of Computerized Aided Detection (CAD). Breast Density: SCATTERED The breast parenchyma shows scattered fibroglandular densities. Breast parenchyma level B. FINDINGS: Benign calcification. No mass or distortion. The asymmetry described on 09/16/2017 does not have a corresponding finding on this current exam. Ultrasound imaging of the left breast was performed at the 12:30 region 5 cm from the nipple and at the 4:00 region 6 cm from the nipple. No mass, cyst, or other suspicious finding identified. Previously described findings at these sites are no longer evident. IMPRESSION: No suspicious finding. BI-RADS CATEGORY: 1 NEGATIVE RECOMMENDED FOLLOW-UP: 12M 12 MONTH FOLLOW-UP PQRS compliance statement: Patient information was entered into a reminder system with a target due date for the next mammogram. Mammography is a sensitive method for finding small breast cancers, but it does not detect them all and is not a substitute for careful clinical examination. A negative mammogram does not negate a clinically suspicious finding and should not result in delay in biopsying a clinically suspicious abnormality. "Our facility is accredited by the [employer] Mammography Program."
== END | disposition home or self-care (01) ==
LOC: MAMMO 10:02
PROVIDERS: ATTEND Internal Medicine
DX: N64.89 Other specified disorders of breast (principal)
CPT/HCPCS: 76641; 77066; G0279; 77062

== ENCOUNTER → 2018-12-01 | Outpatient (CLI) | payer OTHER ==
[~2018-12-01] MED LIST changes: +REGADENOSON 0.4 MG/5 ML DISP.SYRIN. IV ONE
--- NOTE | 2018-12-01 10:58 | CARD ---
MR#: [id number] Date of Study: 12/01/2018 Ordering Physician: MICHAEL VAUGHAN, Referring Physician: MICHAEL VAUGHAN, Tech: Maria Teresa Mayer APPROVED REPORT EXAM: Two-dimensional and M-mode echocardiogram with Doppler and color Doppler. Other Information Quality : AverageHR: 60bpm Technically limited study due to body habitus and smoking. INDICATION Chest Pain RISK FACTORS Hyperlipidemia Diabetes Smoking 2D DIMENSIONS RVDd2.5 (2.9-3.5cm)Left Atrium(2D)3.5 (1.6-4.0cm) IVSd1.0 (0.7-1.1cm)Aortic Root(2D)2.5 (2.0-3.7cm) LVDd5.4 (3.9-5.9cm)LVOT Diameter2.1 (1.8-2.4cm) PWd0.9 (0.7-1.1cm)LVDs3.3 (2.5-4.0cm) FS (%) 37.8 %SV94.6 ml LVEF(%)67.4 (>50%) Aortic Valve AoV Peak Ismael.118.1cm/sAoV VTI25.3cm AO Peak GR.5.6mmHgLVOT Peak Ismael.103.4cm/s LVOT VTI 22.45cmAO Mean GR.3mmHg JOANIE (VMAX)2.69ai0URD (VTI)3.19cm2 Mitral Valve MV E Cwxrtwgw97.1cm/sMV DECEL [id number] MV A Hfsdcgsa420.9cm/sMV NGR36jh E/A Ratio0.8MVA (PHT)3.35cm2 TDI E/Lateral E'12.3E/Medial E'11.6 Pulmonary Valve PV Peak Ojjmiaqh62.6cm/sPV Peak Grad.3mmHg Pulmonary Vein S1 Msrgnytt45.1cm/sD2 Nfxbptfs40.9cm/s PVa [id number] LEFT VENTRICLE The left ventricle is normal size. There is borderline concentric left ventricular hypertrophy. The l eft ventricular systolic function is normal and the ejection fraction is within normal range. The Eje ction Fraction is 55-60%. There is normal LV segmental wall motion. Transmitral Doppler flow pattern is Grade I-abnormal relaxation pattern. RIGHT VENTRICLE The right ventricle is normal size. There is normal right ventricular wall thickness. The right ventr icular systolic function is normal. ATRIA The left atrium size is normal. The right atrium size is normal. The interatrial septum is intact wit h no evidence for an atrial septal defect or patent foramen ovale as noted on 2-D or Doppler imaging. AORTIC VALVE The aortic valve is not well visualized. Doppler and Color Flow revealed no significant aortic regurg itation. There is no significant aortic valvular stenosis. MITRAL VALVE The mitral valve is normal in structure and function. There is no evidence of mitral valve prolapse. There is no mitral valve stenosis. Doppler and Color-flow revealed trace mitral regurgitation. TRICUSPID VALVE The tricuspid valve is not well visualized. Doppler and Color Flow revealed no tricuspid valve regurg itation noted. There is no tricuspid valve stenosis. PULMONIC VALVE The pulmonic valve is not well visualized. Doppler and Color Flow revealed no pulmonic valvular regur gitation. There is no pulmonic valvular stenosis. GREAT VESSELS The aortic root is normal in size. The IVC is normal in size and collapses >50% with inspiration. PERICARDIAL EFFUSION There is no evidence of significant pericardial effusion. Critical Notification Critical Value: No <Conclusion> The left ventricular systolic function is normal and the ejection fraction is within normal range. Th e Ejection Fraction is 55-60%. There is normal LV segmental wall motion. Signed by : Jn Pierre, Electronically Approved : 12/01/2018 10:57:45
== END | disposition home or self-care (01) ==
LOC: ECHO 08:25
PROVIDERS: ATTEND Internal Medicine Cardiovascular Disease
DX: I11.9 Hypertensive heart disease without heart failure (principal); E78.5 Hyperlipidemia, unspecified; F17.200 Nicotine dependence, unspecified, uncomplicated
CPT/HCPCS: 93306; J2785

== ENCOUNTER 2018-12-24 07:09 | Outpatient (CLI) | payer OTHER ==
[2018-12-24] VITALS (9 sets, daily range): BP systolic 116–141; BP diastolic 71–83
[~2018-12-24] VITALS: Ht 165.1 cm; Wt 108.0 kg
[~2018-12-24 07:09] MED LIST changes: -REGADENOSON 0.4 MG/5 ML DISP.SYRIN. IV ONE
[2018-12-24] MEDS ORDERED: IODIXANOL 320 MG/ML 100 ML VIAL. ONE (07:32)
[2018-12-24] MEDS ORDERED: LIDOCAINE 1% PF 2 ML VIAL. ONE (07:32)
[2018-12-24] MEDS ORDERED: TIZA4TAB2 PO (07:54)
[2018-12-24] MEDS ORDERED: DICL75TA PO (07:54)
[2018-12-24] MEDS ORDERED: MELO15TA23 PO (07:54)
[2018-12-24] MEDS ORDERED: METO25TA4 PO (07:54)
[2018-12-24 07:56] LABS: HEMATOCRIT 41.2 % (36.0-47.0); HEMOGLOBIN 13.6 g/dL (12.0-15.5); RED BLOOD COUNT 5.03 x10^6/uL (3.50-5.40); RED CELL DISTRIBUTION WIDTH 14.6 % (11.5-14.5); WHITE BLOOD COUNT 7.2 x10^3/uL (4.0-11.0)
[2018-12-24 08:05] LABS: CREATININE 1.1 mg/dL (0.6-1.0); GFR 50.8; POTASSIUM 4.5 mmol/L (3.5-5.1)
[2018-12-24 08:07] LABS: PROTHROMBIN TIME PATIENT 12.9 SEC (11.7-14.0)
[2018-12-24] MEDS ORDERED: LIDOCAINE 1% Multi-Dose 20 ML VIAL. ONE (08:16)
[2018-12-24] MEDS ORDERED: MIDAZOLAM HCL/PF 2 MG/2 ML VIAL. ONE (08:27)
[2018-12-24] MEDS ORDERED: fentaNYL PF VIAL 100 MCG/2 ML VIAL ONE (08:27)
[2018-12-24] MEDS ORDERED: LIDOCAINE 1% Multi-Dose 20 ML VIAL. INJ ONE (09:15)
[2018-12-24] MEDS ORDERED: MIDAZOLAM HCL/PF 2 MG/2 ML VIAL. IV ONE (09:15)
[2018-12-24] MEDS ORDERED: fentaNYL PF VIAL 100 MCG/2 ML VIAL IV ONE (09:15)
[2018-12-24] MEDS ORDERED: IODIXANOL 320 MG/ML 100 ML VIAL. IART ONE (09:15)
[2018-12-24] MEDS ORDERED: IV 1/2 NORMAL SALINE 1,000 ML IV SCH (09:39)
--- NOTE | 2018-12-24 09:39 | PDOC ---
MODERATE SEDATION ASSESSMENT RISKS/ALTERNATIVES Risks/Alternatives Risks and alternatives of this type of sedation and procedure discussed with: RISK/ALTERNATIVES: Patient H & P ON CHART H & P H & P on chart and reviewed for co-morbid conditions and appropriate labs. H&P ON CHART: Yes STATUS PREG STATUS ASSESSED: N/A MEDS/ALLERGIES REVIEWED Meds/Allergies Reviewed Medications and Allergies including time and route of recently administered narcotics and sedatives. MEDS/ALLERGIES REVIEWED: Yes ASA RATING ASA RATING: III AIRWAY ASSESSMENT Airway Assessment Airway patency, oral function limitations, presence of caps, crowns, dentures, partials, and ability to extend neck assessed. AIRWAY ASSESSMENT: Yes MALLAMPATI SCORE MALLAMPATI SCORE: II PRE-SEDATION ASSESSMENT PRE-SEDATION ASSESSMENT: Yes MICHAEL VAUGHAN MD Dec 24, 2018 09:39
[2018-12-24] MEDS ORDERED: NITROGLYCERIN SUBLINGUAL 0.4 MG BOTTLE OF 25. SL PRN (09:45)
--- NOTE | 2018-12-24 09:48 | CARD ---
MR#: [id number] Date of Study: 12/24/2018 Ordering Physician: MICHAEL VAUGHAN, Referring Physician: MICHAEL VAUGHAN Tech: JOS AGUILAR RTR APPROVED REPORT Technologist: OJS AGUILAR RTR Nurse: Mirtha Angulo R.N. Procedure(s) performed: Right and left heart catheterization, selective coronary angiography and left ventriculography MODERATE SEDATION TIME: 53 MINUTES FLUORO TIME: 3.6 MIN DOSE:40.6 GYCM2 CONTRAST: 82 INDICATION The indication(s) include : Refractory dyspnea on exertion. [facility] Clinical Frailty Scale [facility] Clinical Frailty Scale: Mildly Frail Heart Failure Heart Failure: No PROCEDURE NARRATIVE After explaining the risks, benefits and alternative options, informed consent was obtained from devan ent. Patient was brought to the cardiac Cylinder Press Operator Apprentice and her right groin was prepped and draped in the us ual fashion. 20 mL of 2% lidocaine was infiltrated into the skin and subcutaneous drain is tissues fo r local anesthesia. Arterial and venous accesses were obtained the right common femoral artery and ve in respectively and 6 and 8 [place] sheaths inserted. A 7.5 [place] catheter was then advance d of fluoroscopy guidance and intracardiac pressures, oxygen saturations and cardiac output by thermo dilution method measured. Subsequently, 6 [place] JL4 and 6 [place] JR4 catheters were used to perform selective angiography of the left and right coronary arteries. 6 [place] pigtail catheter was used to perform left ventriculography. Patient tolerated the procedure well. Hemostasis was achieved using An cely-Seal and manual compression. There were no immediate complications. FINDINGS: A. RIGHT HEART CATHETERIZATION 1. Intracardiac pressures: Mean right atrial pressure 8 mmHg, right ventricle pressure 35/7 mmHg, p ulmonary artery pressure 31/12 mmHg with mean PA pressure 22 mmHg and mean pulmonary capillary wedge pressure of 12 mmHg. No significant pulmonary hypertension. 2. Oxygen saturations: Right atrium 70.3%, pulmonary artery 73.1%, femoral arterial sheath 96.4%. N o evidence of intracardiac shunt. 3. Cardiac output by thermodilution method 5.2 L/m. B. LEFT HEART CATHETERIZATION 1. Hemodynamics: Left ventricle end diastolic pressure 20 mmHg. No pullback gradient across the aor tic valve. 2. Left ventriculography: Normal left ventricle systolic function with ejection fraction estimated at 60%. No significant mitral regurgitation seen. 3. Coronary angiography: a. The left main coronary artery arose from the left sinus of Valsalva, gave rise to the left anteri or descending and left circumflex arteries and did not show any significant stenosis. b. The left anterior descending artery did not show any significant stenosis. c. The left circumflex artery was a large and dominant vessel that did not show any significant sten osis. d. The right coronary artery was a small and nondominant vessel that did not show any significant st enosis. Conclusion 1. No significant coronary artery disease 2. Normal left ventricle systolic function with ejection fraction estimated at 60% 3. No significant pulmonary hypertension, mean PA pressure 22 mmHg, main coronary capillary wedge pr essure 12 mmHg 4. No evidence of intercurrent shunt Signed by : Michael Vaughan, Electronically Approved : 12/24/2018 09:47:59
[2018-12-24] MEDS ORDERED: ACETAMINOPHEN 325 MG TABLET. PO PRN (11:00)
== END 2018-12-24 13:09 | disposition home or self-care (01) ==
LOC: CCL 07:09
PROVIDERS: ATTEND Internal Medicine Cardiovascular Disease
DX: R06.00 Dyspnea, unspecified (principal); J44.9 Chronic obstructive pulmonary disease, unspecified; E78.5 Hyperlipidemia, unspecified; I10 Essential (primary) hypertension; F17.210 Nicotine dependence, cigarettes, uncomplicated; Z87.440 Personal history of urinary (tract) infections; Z98.890 Other specified postprocedural states; Z88.1 Allergy status to other antibiotic agents; Z87.01 Personal history of pneumonia (recurrent)
CPT/HCPCS: 36415; 80048; 85027; 85610; 93460; 99152; 99153; C1760; C1769; C1773; C1892; J1644; J2250; J3010; Q9967; G0269; C1771

== ENCOUNTER → 2019-01-06 | Outpatient (CLI) | payer OTHER ==
[2018-12-24 11:55] VITALS: BP 140/82
[~2019-01-06] MED LIST changes: +DICL75TA PO; +MELO15TA23 PO; +TIZA4TAB2 PO
--- NOTE | 2019-01-06 10:26 | RAD ---
MR#: [id number] Date of Study: 01/06/2019 Ordering Physician: MICHAEL VAUGHAN, Referring Physician: MICHAEL VAUGHAN, Tech: Reese Casey MBA, RDMS, RVT, RDCS, RTR APPROVED REPORT Patient Location: OUT-PATIENT Indications Rest Pain:Bilaterally VELOCITY AND DOPPLER WAVEFORM ANALYSIS RIGHT cm/secWaveformSeverity LEFT cm/secWaveform Severity dCFA 151.0TriphasicdCFA 113.0Triphasic Prof Fem Art. 101.0TriphasicProf Fem Art. 73.0Biphasic Fem Art Prox. 151.0TriphasicFem Art Prox. 125.0Triphasic Fem Art Mid. 123.0TriphasicFem Art Mid. 110.0Triphasic Fem Art Dist. 119.0TriphasicFem Art Dist. 98.0Triphasic Pop Art(Fossa) 82.0TriphasicPop Art(AK) 102.0Triphasic EXTRUSION DIE REPAIR MANAGER Prox. 81.0TriphasicPTA Prox. 109.0Triphasic EXTRUSION DIE REPAIR MANAGER Dist. 85.0TriphasicPTA Dist. 89.0Triphasic Per Art Mid. Per Art Mid. 87.0Triphasic ZION Prox. 87.0TriphasicATA Prox. 41.0Triphasic DPA 77BiphasicDPA 36Triphasic Findings Grayscale images of the lower extremity arterial vessels do not reveal any significant obstructive di sease. Spectral waveforms are triphasic and biphasic throughout the lower extremities. The right peroneal ar goyo is not visualized otherwise velocities are within normal limits. Critical Notification Critical Value: No <Conclusion> 1. No significant lower extremity arterial disease noted. The right peroneal artery was not well visu alized but otherwise normal flow to the foot. Signed by : Jn Pierre, Electronically Approved : 01/06/2019 10:25:31
== END | disposition home or self-care (01) ==
LOC: US 07:30
PROVIDERS: ATTEND Internal Medicine Cardiovascular Disease
DX: M79.605 Pain in left leg (principal); M79.604 Pain in right leg
CPT/HCPCS: 93925

== ENCOUNTER 2019-02-20 21:56 | Emergency (ER) | payer OTHER ==
[~2019-02-20] VITALS: Ht 167.6 cm; Wt 108.0 kg
[2019-02-20] MEDS ORDERED: KETOROLAC 15 MG/ML VIAL. IVP ONE (22:15)
[2019-02-20] MEDS ORDERED: fentaNYL PF VIAL 100 MCG/2 ML VIAL IVP ONE (22:15)
[2019-02-20] MEDS ORDERED: ONDANSETRON PF 4 MG/2 ML VIAL. IVP ONE (22:15)
[2019-02-20 22:31] LABS: BASO # 0.2 x10^3/uL (0.0-0.2); BASO % 2 % (0-3); EOS # 0.5 x10^3/uL (0.0-0.7); EOS % 5 % (0-3); HEMATOCRIT 44.2 % (36.0-47.0); HEMOGLOBIN 14.6 g/dL (12.0-15.5); LYMPH # 4.1 x10^3/uL (1.0-4.8); LYMPH % 39 % (24-48); MEAN CORPUSCULAR HEMOGLOBIN 27 pg (25-35); MEAN CORPUSCULAR HGB CONC 33 g/dL (31-37); MEAN CORPUSCULAR VOLUME 83 fL (79-100); MONO # 0.7 x10^3/uL (0.0-1.1); MONO % 7 % (0-9); NEUT # 5.1 x10^3/uL (1.8-7.7); NEUT % 48 % (31-73); PLATELET COUNT 223 x10^3/uL (140-400); RED BLOOD COUNT 5.34 x10^6/uL (3.50-5.40); RED CELL DISTRIBUTION WIDTH 14.8 % (11.5-14.5); WHITE BLOOD COUNT 10.6 x10^3/uL (4.0-11.0)
[2019-02-20 22:32] LABS: BILIRUBIN,URINE NEGATIVE (NEG); CLARITY,URINE CLEAR; COLOR,URINE YELLOW; NITRITE,URINE NEGATIVE (NEG); PROTEIN,URINE NEGATIVE (NEG-TRACE); UROBILINOGEN,URINE 0.2 mg/dL (0.2 mg/dL)
[2019-02-20 22:39] LABS: BACTERIA,URINE MANY /HPF (0-FEW); RBC,URINE 0 /HPF (0-2); SQUAMOUS EPITHELIAL CELL,UR MOD /LPF
--- NOTE | 2019-02-20 23:16 | PHYS DOC ---
Past Medical History Past Medical History: Asthma, Bronchitis, COPD, Diabetes-Type II, High Cholesterol Additional Past Medical Histor: CHRONIC PAIN Past Surgical History: Hysterectomy Additional Past Surgical Histo: ABD HERNIA, EYE SURGERY, CARPAL TUNNEL RELEASE: R Alcohol Use: Rarely Drug Use: None Adult General Chief Complaint Chief Complaint: ABDOMINAL PAIN HPI HPI Patient is a 59 year old female presents acute onset right lower quadrant pain starting 4 hours prior to arrival. Pain is described as sharp rated moderate to severe. Is not worse with palpation or position change and is not relieved with rest. Patient reports nausea, denies vomiting. No fever chills or sweats. No urinary frequency urgency or burning. No history of kidney stones. No other acute symptoms or complaints. [] Review of Systems Review of Systems Review of symptoms as per history of present illness. All other review symptoms are negative. All other systems were reviewed and found to be within normal limits, except as documented in this note. Current Medications Current Medications Current Medications Medications (Trade) Dose Ordered Sig/Dolly Start Time Stop Time Status Last Admin Dose Admin Fentanyl Citrate (Fentanyl 2ml Vial) 50 mcg 1X ONCE 02/20/19 22:15 02/20/19 22:16 DC 02/20/19 22:22 50 MCG Ketorolac Tromethamine (Toradol 15mg Vial) 15 mg 1X ONCE 02/20/19 22:15 02/20/19 22:16 DC 02/20/19 22:22 15 MG Morphine Sulfate (Morphine Sulfate) 4 mg 1X ONCE 02/21/19 00:45 02/21/19 00:46 DC 02/21/19 00:44 4 MG Ondansetron HCl (Zofran) 4 mg 1X ONCE 02/20/19 22:15 02/20/19 22:16 DC 02/20/19 22:17 4 MG Allergies Allergies Allergies Coded Allergies Type Severity Reaction Last Updated Verified Penicillins Allergy Unknown 04/18/18 Yes prednisone Adverse Reaction Mild "It upsets my stomach." 10/30/17 Yes Physical Exam Physical Exam Constitutional: Well developed, well nourished, no acute distress, non-toxic appearance. [] HENT: Normocephalic, atraumatic, bilateral external ears normal, oropharynx moist, nose normal. [] Eyes: PERRLA, EOMI, conjunctiva normal. [] Neck: Normal range of motion, no tenderness. [] Cardiovascular:Heart rate regular rhythm, no murmur. [] Lungs & Thorax: Bilateral breath sounds clear to auscultation. [] Abdomen: Bowel sounds normal, soft, RLQ pain/tenderness. No palpable hernias. [] Skin: Warm, dry, no erythema, no rash. [] Back: No tenderness, no CVA tenderness. [] Extremities: No tenderness, no edema. [] Neurologic: Alert and oriented X 3, normal motor function, normal sensory function, no focal deficits noted. [] Psychologic: Affect normal, judgement normal, mood normal. [] Current Patient Data Vital Signs Vital Signs Date Time Temp Pulse Resp B/P (MAP) Pulse Ox O2 Delivery O2 Flow Rate FiO2 02/21/19 00:45 88 22 132/82 (99) 96 Room Air 02/20/19 22:05 98.0 98.0 Lab Values Laboratory Tests Test 02/20/19 22:00 02/20/19 22:15 02/20/19 23:10 Urine Collection Type Unknown Urine Color Yellow Urine Clarity Clear Urine pH 6.0 Urine Specific Robinson <=1.005 Urine Protein Negative mg/dL (NEG-TRACE) Urine Glucose (UA) Negative mg/dL (NEG) Urine Ketones (Stick) Negative mg/dL (NEG) Urine Blood Negative (NEG) Urine Nitrite Negative (NEG) Urine Bilirubin Negative (NEG) Urine Urobilinogen Dipstick 0.2 mg/dL (0.2 mg/dL) Urine Leukocyte Esterase Negative (NEG) Urine RBC 0 /HPF (0-2) Urine WBC 5-10 /HPF (0-4) Urine Squamous Epithelial Cells Mod /LPF Urine Bacteria Many /HPF (0-FEW) White Blood Count 10.6 x10^3/uL (4.0-11.0) Red Blood Count 5.34 x10^6/uL (3.50-5.40) Hemoglobin 14.6 g/dL (12.0-15.5) Hematocrit 44.2 % (36.0-47.0) Mean Corpuscular Volume 83 fL (79-100) Mean Corpuscular Hemoglobin 27 pg (25-35) Mean Corpuscular Hemoglobin Concent 33 g/dL (31-37) Red Cell Distribution Width 14.8 % (11.5-14.5) H Platelet Count 223 x10^3/uL (140-400) Neutrophils (%) (Auto) 48 % (31-73) Lymphocytes (%) (Auto) 39 % (24-48) Monocytes (%) (Auto) 7 % (0-9) Eosinophils (%) (Auto) 5 % (0-3) H Basophils (%) (Auto) 2 % (0-3) Neutrophils # (Auto) 5.1 x10^3/uL (1.8-7.7) Lymphocytes # (Auto) 4.1 x10^3/uL (1.0-4.8) Monocytes # (Auto) 0.7 x10^3/uL (0.0-1.1) Eosinophils # (Auto) 0.5 x10^3/uL (0.0-0.7) Basophils # (Auto) 0.2 x10^3/uL (0.0-0.2) Sodium Level 142 mmol/L (136-145) Potassium Level 4.0 mmol/L (3.5-5.1) Chloride Level 104 mmol/L (98-107) Carbon Dioxide Level 28 mmol/L (21-32) Anion Gap 10 (6-14) Blood Urea Nitrogen 15 mg/dL (7-20) Creatinine 1.2 mg/dL (0.6-1.0) H Estimated GFR (Cockcroft-Gault) 45.8 BUN/Creatinine Ratio 13 (6-20) Glucose Level 128 mg/dL (70-99) H Calcium Level 8.8 mg/dL (8.5-10.1) Total Bilirubin 0.2 mg/dL (0.2-1.0) Aspartate Amino Transferase (AST) 22 U/L (15-37) Alanine Aminotransferase (ALT) 27 U/L (14-59) Alkaline Phosphatase 85 U/L (46-116) Total Protein 6.7 g/dL (6.4-8.2) Albumin 3.1 g/dL (3.4-5.0) L Albumin/Globulin Ratio 0.9 (1.0-1.7) L Laboratory Tests 02/20/19 22:15 Laboratory Tests 02/20/19 23:10 EKG EKG [] Radiology/Procedures Radiology/Procedures [Ct abd/pelvis: no acute disease per radiology report] Course & Med Decision Making Course & Med Decision Making Pertinent Labs and Imaging studies reviewed. (See chart for details) [Symptoms improved with treatment. No diagnosis was made. Recommend following up with PCP. Return precautions reviewed. Dragon Disclaimer Dragon Disclaimer This electronic medical record was generated, in whole or in part, using a voice recognition dictation system. Departure Departure Impression: Primary Impression: Abdominal pain Disposition: HOME, SELF-CARE Condition: STABLE Referrals: KEVIN GOETZ MD (PCP) Patient Instructions: Abdominal Pain Scripts Docusate Sodium (COLACE) 100 Mg Capsule 1 CAP PO BID for 5 Days, #10 CAP 0 Refills Prov: SUGEY BERG DO 02/21/19 Tramadol Hcl (TRAMADOL HCL) 50 Mg Tablet 50 MG PO Q6H PRN for PAIN for 3 Days, #10 TAB 0 Refills Prov: SUGEY BERG DO 02/21/19 SUGEY BERG DO Feb 20, 2019 23:16
[2019-02-20 23:28] LABS: CALCIUM 8.8 mg/dL (8.5-10.1); CREATININE 1.2 mg/dL (0.6-1.0); GFR 45.8
--- NOTE | 2019-02-20 23:29 | RAD ---
PQRS Compliance statement: One or more of the following individualized dose reduction techniques were utilized for this examination: 1. Automated exposure control. 2. Adjustment of the mA and/or kV according to patient size. 3. Use of iterative reconstruction technique. Indication: Right flank pain TECHNIQUE: CT abdomen and pelvis without IV contrast with multiplanar reformats. COMPARISON: 03/06/2018 FINDINGS: Limited evaluation of solid abdominal and pelvic organs due to lack of IV contrast. Heart is normal in size. No pericardial or pleural effusion. Clear lung bases. Noncontrast appearance of the liver, spleen, gallbladder, pancreas, adrenals and kidneys within normal limits. No enlarged retroperitoneal or pelvic adenopathy. No free pelvic fluid or ascites. Status post hysterectomy. Prominent jai hepatis lymph nodes are again seen, nonspecific may be reactive. Urinary bladder demonstrates no radiopaque stone. No bowel obstruction. Normal appendix. No pneumoperitoneum. No suspicious bony lesion. Multilevel posterior disc osteophyte complexes are seen in the lumbar spine. IMPRESSION: Limited evaluation of solid abdominal and pelvic organs due to lack of IV contrast. No nephrolithiasis or hydronephrosis. No bowel obstruction. Normal appendix. Electronically signed by: Luciano Aldana DO (02/20/2019 11:26 PM) [facility]
[2019-02-20 23:33] LABS: ALBUMIN 3.1 g/dL (3.4-5.0); ALBUMIN/GLOBULIN RATIO 0.9 (1.0-1.7); TOTAL BILIRUBIN 0.2 mg/dL (0.2-1.0); TOTAL PROTEIN 6.7 g/dL (6.4-8.2)
[2019-02-21] MEDS ORDERED: MORPHINE SULFATE 4 MG/ML VIAL. IV ONE (00:45)
[2019-02-21 01:12] VITALS: BP 119/73
[2019-02-21] MEDS ORDERED: TRAM50TA PO (01:23)
[2019-02-21] MEDS ORDERED: DOCU-109 PO (01:23)
== END 2019-02-21 01:25 | disposition home or self-care (01) ==
LOC: ER 21:56
DX: R10.31 Right lower quadrant pain (principal); R11.0 Nausea; J44.9 Chronic obstructive pulmonary disease, unspecified; E11.9 Type 2 diabetes mellitus without complications; E78.00 Pure hypercholesterolemia, unspecified; G89.29 Other chronic pain; Z90.710 Acquired absence of both cervix and uterus; Z98.890 Other specified postprocedural states; Z88.0 Allergy status to penicillin; Z88.5 Allergy status to narcotic agent
CPT/HCPCS: 36415; 74176; 80053; 81001; 85025; 87086; 96374; 96375; 99285; J1885; J2270; J2405; J3010

== ENCOUNTER 2019-04-20 08:23 | Emergency (ER) | payer OTHER ==
[~2019-04-20] VITALS: Ht 165.1 cm; Wt 106.1 kg
[~2019-04-20 08:23] MED LIST changes: +DOCU-109 PO
[2019-04-20 09:23] VITALS: BP 120/76
[2019-04-20] MEDS ORDERED: DEXAMETHASONE 4 MG TABLET PO STA (09:43)
--- NOTE | 2019-04-20 09:55 | PHYS DOC ---
Past Medical History Past Medical History: Asthma, Bronchitis, COPD, Diabetes-Type II, High Ch olesterol Additional Past Medical Histor: CHRONIC PAIN Past Surgical History: Hysterectomy Additional Past Surgical Histo: ABD HERNIA, EYE SURGERY, CARPAL TUNNEL RELEASE: R Alcohol Use: Rarely Drug Use: None Adult General Chief Complaint Chief Complaint: SORE THROAT HPI HPI Patient is a 59 year old female who presents with cough, runny nose, sneezing, hoarse voice, loss of appetite as been ongoing since Thursday. The patient's primary care doctor diagnosed with a bronchitis and put on Z-Jose Alberto. This has not worked. The patient is a history diabetes, and COPD. Denies shortness of breath, denies fevers. Complete ROS were reviewed and found to be within normal limits, except as documented in the HPI Current Medications Current Medications Current Medications Medications (Trade) Dose Ordered Sig/Dolly Start Time Stop Time Status Last Admin Dose Admin Dexamethasone (Decadron) 10 mg 1X STAT 04/20/19 09:43 04/20/19 09:44 DC 04/20/19 10:02 10 MG Allergies Allergies Allergies Coded Allergies Type Severity Reaction Last Updated Verified Penicillins Allergy Unknown 04/18/18 Yes prednisone Adverse Reaction Mild "It upsets my stomach." 10/30/17 Yes Physical Exam Physical Exam Constitutional: Well developed, well nourished, no acute distress, non-toxic appearance. [] HENT: Normocephalic, atraumatic, bilateral external ears normal, oropharynx moist, no oral exudates, nose normal. [] Eyes: PERRLA, EOMI, conjunctiva normal, no discharge. [] Neck: Normal range of motion, no tenderness, supple, no stridor. [] Cardiovascular:Heart rate regular rhythm, no murmur [] Lungs & Thorax: Bilateral breath sounds clear to auscultation [] Skin: Warm, dry, no erythema, no rash. [] Neurologic: Alert and oriented X 3, normal motor function, normal sensory function, no focal deficits noted. [] Psychologic: Affect normal, judgement normal, mood normal. [] Current Patient Data Vital Signs Vital Signs Date Time Temp Pulse Resp B/P (MAP) Pulse Ox O2 Delivery O2 Flow Rate FiO2 04/20/19 09:23 97.7 80 22 120/76 (91) 100 Room Air 97.7 Lab Values Laboratory Tests Test 04/20/19 09:41 Glucose (Fingerstick) 194 mg/dL (70-99) H EKG EKG [] Radiology/Procedures Radiology/Procedures [][facility] [address] [place] [address] IMAGING REPORT Signed PATIENT: RICKY CLAIRE LACCOUNT: [id number] : 1960 LOCATION: ER AGE: 59 SEX: F EXAM STATUS: REG ER ORD. PHYSICIAN: PETER HILLS APRN REASON: cough PROCEDURE: CHEST PA & LATERAL AP and Lateral Views of the Chest 04/20/2019 9:40 AM Indication: Cough Comparison: Chest radiograph December 24, 2017 Findings: Minimal right basilar atelectasis appears be present. Central there is mild diffuse interstitial thickening, similar to comparison study.. Heart size is normal. There is no evidence of pneumothorax or pleural effusion. No acute osseous abnormalities are identified. Impression: 1. Minimal right basilar atelectasis. 2. Similar mild diffuse interstitial thickening. Electronically signed by: Ted Covarrubias MD (04/20/2019 10:06 AM) [facility] DICTATED and SIGNED BY: TED COVARRUBIAS MD DATE: 04/20/19 1006 Course & Med Decision Making Course & Med Decision Making Pertinent Labs and Imaging studies reviewed. (See chart for details) Will get blood glucose and a chest x-ray. Will give Decadron. Discussed with patient that this is viral and to drink plenty of fluids and get plenty of rest. Will prescribe an inhaler to come home with. Chest x-ray is unremarkable. Dragon Disclaimer Dragon Disclaimer This electronic medical record was generated, in whole or in part, using a voice recognition dictation system. Departure Departure Impression: Primary Impression: Acute bronchitis Disposition: 01 HOME, SELF-CARE Condition: STABLE Referrals: KEVIN GOETZ MD (PCP) Patient Instructions: Acute Bronchitis Additional Instructions: Thank you for visiting [facility]. We appreciate you trusting us with your care. If any additional problems come up don't hesitate to return to visit us. Please follow up with your primary care provider so they can plan additional care if needed and know about the problem that you had. If symptoms worsen come back to the Emergency Department. Any concerning symptoms that start such as chest pain, shortness of air, weakness or numbness on one side of the body, running high fevers or any other concerning symptoms return to the ER. Please fill your medications at any pharmacy and follow the prescription instructions. Please drink plenty of fluids. If unable to keep fluids down please return to ER. Please get Zyrtec over the counter and take per label instructions for runny nose. Scripts Albuterol Sulfate (PROAIR HFA INHALER) 8.5 Gm Hfa.aer.ad 2 PUFF IH PRN Q4-6HRS PRN for wheezing for 21 Days, #1 INHALER 0 Refills Prov: PETER HILLS APRN 04/20/19 Problem Qualifiers Primary Impression: Acute bronchitis Bronchitis organism: unspecified organism Qualified Codes: J20.9 - Acute bronchitis, unspecified PETER HILLS APRN Apr 20, 2019 09:55
--- NOTE | 2019-04-20 10:09 | RAD ---
AP and Lateral Views of the Chest 04/20/2019 9:40 AM Indication: Cough Comparison: Chest radiograph December 24, 2017 Findings: Minimal right basilar atelectasis appears be present. Central there is mild diffuse interstitial thickening, similar to comparison study.. Heart size is normal. There is no evidence of pneumothorax or pleural effusion. No acute osseous abnormalities are identified. Impression: 1. Minimal right basilar atelectasis. 2. Similar mild diffuse interstitial thickening. Electronically signed by: Ted Larson MD (04/20/2019 10:06 AM) [facility]
[2019-04-20] MEDS ORDERED: ALBU2.5V8 IH (10:15)
== END 2019-04-20 10:39 | disposition home or self-care (01) ==
LOC: ER 08:23
DX: J44.9 Chronic obstructive pulmonary disease, unspecified (principal); E11.9 Type 2 diabetes mellitus without complications; E78.00 Pure hypercholesterolemia, unspecified; G89.29 Other chronic pain; Z88.0 Allergy status to penicillin; Z88.8 Allergy status to other drugs, medicaments and biological substances
CPT/HCPCS: 71046; 82962; 99285; J8540

== ENCOUNTER 2019-05-29 00:39 | Emergency (ER) | payer OTHER ==
[~2019-05-29] VITALS: Ht 167.6 cm; Wt 108.5 kg
[~2019-05-29 00:39] MED LIST changes: +ALBU2.5V8 IH
--- NOTE | 2019-05-29 01:41 | PHYS DOC ---
Past Medical History Past Medical History: Asthma, Bronchitis, COPD, Diabetes-Type II, High Cholesterol Additional Past Medical Histor: CHRONIC PAIN Past Surgical History: Hysterectomy Additional Past Surgical Histo: ABD HERNIA, EYE SURGERY, CARPAL TUNNEL RELEASE: R Smoking Status: Current Every Day Smoker Alcohol Use: Rarely Drug Use: None Adult General Chief Complaint Chief Complaint: ABDOMINAL PAIN [facility] HPI Patient is a 59 year old female with history of hypertension, dysrhythmia, diabetes mellitus, chronic pain, bronchitis, asthma, COPD who presents with of constipation. Patient states she usually has bowel movements every day but did not have a bowel movement for the last 7 days and complaining of generalized abdominal pain and pressure feeling and in her rectum. Patient denies nausea and vomiting, fever and chills, urinary symptoms, history of the same problem. Patient states she took several medication without having bowel movements. Patient denies taking narcotic pain medication or change of her medication. Patient states the pain is 9/10 and did not get better with taking Tylenol about 3 hours prior to arrival to ER. Review of Systems Review of Systems Constitutional: Denies fever or chills [] Eyes: Denies change in visual acuity, redness, or eye pain [] HENT: Denies nasal congestion or sore throat [] Respiratory: Denies cough or shortness of breath [] Cardiovascular: No additional information not addressed in HPI [] GI: Reports abdominal pain, denies nausea, vomiting, bloody stools or diarrhea [] : Denies dysuria or hematuria [] Musculoskeletal: Denies back pain or joint pain [] Integument: Denies rash or skin lesions [] Neurologic: Denies headache, focal weakness or sensory changes [] Endocrine: Denies polyuria or polydipsia [] All other systems were reviewed and found to be within normal limits, except as documented in this note. Allergies Allergies Allergies Coded Allergies Type Severity Reaction Last Updated Verified Penicillins Allergy Unknown 04/18/18 Yes prednisone Adverse Reaction Mild "It upsets my stomach." 10/30/17 Yes Physical Exam Physical Exam Constitutional: Well developed, well nourished, mild distress, non-toxic appearance. [] HENT: Normocephalic, atraumatic. Eyes: PERRLA, EOMI, conjunctiva normal, no discharge. [] Neck: Normal range of motion, no tenderness, supple, no stridor. [] Cardiovascular:Heart rate regular rhythm, no murmur [] Lungs & Thorax: Bilateral breath sounds clear to auscultation [] Abdomen: Bowel sounds normal, soft, mildly distended with gas ,no tenderness, no masses, no pulsatile masses. Rectal exam with present of director of safety showed normal external exam, partial hard stool in upper rectum. Skin: Warm, dry, no erythema, no rash. [] Back: No tenderness, no CVA tenderness. [] Extremities: No tenderness, no cyanosis, no clubbing, ROM intact, no edema. [] Neurologic: Alert and oriented X 3, no focal deficits noted. [] Psychologic: Affect anxious, judgement normal, mood normal. [] Current Patient Data Vital Signs Vital Signs Date Time Temp Pulse Resp B/P (MAP) Pulse Ox O2 Delivery O2 Flow Rate FiO2 05/29/19 01:10 97.7 78 18 165/79 (107) 96 Room Air 97.7 Lab Values Laboratory Tests Test 05/29/19 00:55 05/29/19 01:25 Urine Collection Type Unknown Urine Color Yellow Urine Clarity Clear Urine pH 6.0 Urine Specific [place] 1.025 Urine Protein Negative mg/dL (NEG-TRACE) Urine Glucose (UA) Negative mg/dL (NEG) Urine Ketones (Stick) Negative mg/dL (NEG) Urine Blood Negative (NEG) Urine Nitrite Negative (NEG) Urine Bilirubin Negative (NEG) Urine Urobilinogen Dipstick 0.2 mg/dL (0.2 mg/dL) Urine Leukocyte Esterase Negative (NEG) Urine RBC 1-2 /HPF (0-2) Urine WBC 1-4 /HPF (0-4) Urine Squamous Epithelial Cells Mod /LPF Urine Bacteria Moderate /HPF (0-FEW) White Blood Count 10.0 x10^3/uL (4.0-11.0) Red Blood Count 5.27 x10^6/uL (3.50-5.40) Hemoglobin 14.3 g/dL (12.0-15.5) Hematocrit 43.2 % (36.0-47.0) Mean Corpuscular Volume 82 fL (79-100) Mean Corpuscular Hemoglobin 27 pg (25-35) Mean Corpuscular Hemoglobin Concent 33 g/dL (31-37) Red Cell Distribution Width 14.0 % (11.5-14.5) Platelet Count 221 x10^3/uL (140-400) Neutrophils (%) (Auto) 50 % (31-73) Lymphocytes (%) (Auto) 37 % (24-48) Monocytes (%) (Auto) 7 % (0-9) Eosinophils (%) (Auto) 5 % (0-3) H Basophils (%) (Auto) 1 % (0-3) Neutrophils # (Auto) 5.0 x10^3/uL (1.8-7.7) Lymphocytes # (Auto) 3.7 x10^3/uL (1.0-4.8) Monocytes # (Auto) 0.7 x10^3/uL (0.0-1.1) Eosinophils # (Auto) 0.5 x10^3/uL (0.0-0.7) Basophils # (Auto) 0.1 x10^3/uL (0.0-0.2) Sodium Level 140 mmol/L (136-145) Potassium Level 4.0 mmol/L (3.5-5.1) Chloride Level 103 mmol/L (98-107) Carbon Dioxide Level 25 mmol/L (21-32) Anion Gap 12 (6-14) Blood Urea Nitrogen 17 mg/dL (7-20) Creatinine 1.1 mg/dL (0.6-1.0) H Estimated GFR (Cockcroft-Gault) 50.7 BUN/Creatinine Ratio 15 (6-20) Glucose Level 145 mg/dL (70-99) H Calcium Level 9.1 mg/dL (8.5-10.1) Total Bilirubin 0.3 mg/dL (0.2-1.0) Aspartate Amino Transferase (AST) 23 U/L (15-37) Alanine Aminotransferase (ALT) 31 U/L (14-59) Alkaline Phosphatase 100 U/L (46-116) Total Protein 7.4 g/dL (6.4-8.2) Albumin 3.4 g/dL (3.4-5.0) Albumin/Globulin Ratio 0.9 (1.0-1.7) L Lipase 216 U/L (73-393) Laboratory Tests 05/29/19 01:25 Laboratory Tests 05/29/19 01:25 EKG EKG [] Radiology/Procedures Radiology/Procedures [address] [place] [address] IMAGING REPORT Signed PATIENT: RICKY CLAIRE LACCOUNT: [id number] : 1960 LOCATION: ER AGE: 59 SEX: F EXAM STATUS: REG ER ORD. PHYSICIAN: CONRAD RIVERA MD REASON: constipation, abdominal pain PROCEDURE: CT ABDOMEN PELVIS WO CONTRAST CT abdomen pelvis without contrast dated 05/29/2019. No comparison available. CLINICAL INDICATION: Constipation abdominal pain. TECHNIQUE: Continues axial imaging the M pelvis performed without the administration of IV or oral contrast. One or more of the following individualized dose reduction techniques were utilized for this examination: 1. Automated exposure control 2. Adjustment of the mA and/or kV according to patient size 3. Use of iterative reconstruction technique. FINDINGS: Limited images of lung bases are clear. Heart size is mildly enlarged. No pleural or pericardial effusion. Solid abdominal viscera not well evaluated in the absence of contrast material. No apparent attenuation abnormality of the liver or spleen. Pancreas, adrenal glands, gallbladder and kidneys are unremarkable. No hydronephrosis. Unopacified GI tract normal in caliber and contour. No focal bowel wall thickening. No inflammatory stranding in the mesentery. The appendix is normal in caliber. No ascites or lymphadenopathy. Images of pelvis show nondistended urinary bladder. Uterus is surgically absent. There is fecal impaction at the rectal vault. No free pelvic fluid or pelvic lymphadenopathy. Bone windows show no acute findings. Multilevel spondylosis with moderate central stenosis at L2-L3, L4-L5 and L5-S1. Varying degrees of mild to moderate foraminal narrowing throughout. IMPRESSION: 1. No acute abnormality of abdomen or pelvis. Normal appendix. 2. Status post hysterectomy. 3. Possible fecal impaction at the rectal vault. Electronically signed by: Vahid Aponte MD (05/29/2019 2:10 AM) [id number] DICTATED and SIGNED BY: VAHID APONTE MD DATE: 05/29/19209 Course & Med Decision Making Course & Med Decision Making Pertinent Labs and Imaging studies reviewed. (See chart for details) Evaluation of patient in ER showed 59-year-old female patient with complaining of constipation for 7 days. Patient had stooling upper part of the rectum and did not tolerate manipulation for removing distal. CT shows fecal impaction rectum. Patient was advised to take Fleet Enema and prescription for GoLYTELY was given to use if the Fleet Enema does not helping. I've spoken with the patient and/or caregivers. I've explained the patient's condition, diagnosis and treatment plan based on information available to me at this time. I've answered the patient's and/or caregivers questions and addressed any concerns. The patient and/or caregivers have a good understanding the patient's diagnosis, condition and treatment plan as can be expected at this point. Vital signs have been stabilized. The patient's condition is stable for discharge from the emergency department. The patient will pursue further outpatient evaluation with her primary care provider or other designated consulting physician as outlined in the discharge instructions. Patient and/or caregivers are agreeable to this plan of care and follow-up instructions have been explained in detail. The patient and/or caregivers have received these instructions in written format and expressed understanding of these discharge instructions. The patient and her caregivers are aware that if any significant change in condition or worsening of symptoms should prompt him to immediately return to this of the closest emergency department. If an emergent department is not readily available I would encourage him to call 911. Dragon Disclaimer Dragon Disclaimer This electronic medical record was generated, in whole or in part, using a voice recognition dictation system. Departure Departure Impression: Primary Impression: Fecal impaction in rectum Additional Impression: Constipation Disposition: 01 HOME, SELF-CARE (at 0245) Condition: STABLE Referrals: KEVIN GOETZ MD (PCP) Patient Instructions: Constipation, Adult, Fecal Impaction Additional Instructions: Drink plenty of liquids Follow-up with your primary care physician in 2-3 days Return to ER if not getting better Thank you for visiting [facility]. We appreciate you trusting us with your care. If any additional problems come up don't hesitate to return to visit us. Please follow up with your primary care provider so they can plan additional care if needed and know about the problem that you had. If symptoms worsen come back to the Emergency Department. Any concerning symptoms that start such as chest pain, shortness of air, weakness or numbness on one side of the body, running high fevers or any other concerning symptoms return to the ER. Scripts Peg 3350/Na Sulf,Bicarb,Cl/Kcl (GOLYTELY SOLUTION) 4,000 Ml Soln.recon 4000 ML PO 1X, #1 MISC Drink 1 cup every an hour until having a bowel movements Prov: CONRAD RIVERA MD 05/29/19 Na Phos,M-B/Na Phos,Di-Ba (FLEET ENEMA) 133 Ml Enema 1 EACH RC ONCE, #1 BOTTLE Prov: CONRAD RIVERA MD 05/29/19 Problem Qualifiers Additional Impression: Constipation Constipation type: unspecified constipation type Qualified Codes: K59.00 - Constipation, unspecified CONRAD RIVERA MD May 29, 2019 01:41
[2019-05-29 01:42] LABS: BASO # 0.1 x10^3/uL (0.0-0.2); BASO % 1 % (0-3); EOS # 0.5 x10^3/uL (0.0-0.7); EOS % 5 % (0-3); HEMATOCRIT 43.2 % (36.0-47.0); HEMOGLOBIN 14.3 g/dL (12.0-15.5); LYMPH # 3.7 x10^3/uL (1.0-4.8); LYMPH % 37 % (24-48); MEAN CORPUSCULAR HEMOGLOBIN 27 pg (25-35); MEAN CORPUSCULAR HGB CONC 33 g/dL (31-37); MEAN CORPUSCULAR VOLUME 82 fL (79-100); MONO # 0.7 x10^3/uL (0.0-1.1); MONO % 7 % (0-9); NEUT % 50 % (31-73); PLATELET COUNT 221 x10^3/uL (140-400); RED BLOOD COUNT 5.27 x10^6/uL (3.50-5.40)
[2019-05-29 01:42] LABS: BILIRUBIN,URINE NEGATIVE (NEG); CLARITY,URINE CLEAR; COLOR,URINE YELLOW; NITRITE,URINE NEGATIVE (NEG); PROTEIN,URINE NEGATIVE (NEG-TRACE); UROBILINOGEN,URINE 0.2 mg/dL (0.2 mg/dL)
[2019-05-29 01:53] LABS: BACTERIA,URINE MODERATE /HPF (0-FEW); SQUAMOUS EPITHELIAL CELL,UR MOD /LPF
[2019-05-29 01:55] LABS: CALCIUM 9.1 mg/dL (8.5-10.1); CREATININE 1.1 mg/dL (0.6-1.0); GFR 50.7
[2019-05-29 02:01] LABS: ALBUMIN 3.4 g/dL (3.4-5.0); ALBUMIN/GLOBULIN RATIO 0.9 (1.0-1.7); TOTAL BILIRUBIN 0.3 mg/dL (0.2-1.0); TOTAL PROTEIN 7.4 g/dL (6.4-8.2)
--- NOTE | 2019-05-29 02:12 | RAD ---
CT abdomen pelvis without contrast dated 05/29/2019. No comparison available. CLINICAL INDICATION: Constipation abdominal pain. TECHNIQUE: Continues axial imaging the M pelvis performed without the administration of IV or oral contrast. One or more of the following individualized dose reduction techniques were utilized for this examination: 1. Automated exposure control 2. Adjustment of the mA and/or kV according to patient size 3. Use of iterative reconstruction technique. FINDINGS: Limited images of lung bases are clear. Heart size is mildly enlarged. No pleural or pericardial effusion. Solid abdominal viscera not well evaluated in the absence of contrast material. No apparent attenuation abnormality of the liver or spleen. Pancreas, adrenal glands, gallbladder and kidneys are unremarkable. No hydronephrosis. Unopacified GI tract normal in caliber and contour. No focal bowel wall thickening. No inflammatory stranding in the mesentery. The appendix is normal in caliber. No ascites or lymphadenopathy. Images of pelvis show nondistended urinary bladder. Uterus is surgically absent. There is fecal impaction at the rectal vault. No free pelvic fluid or pelvic lymphadenopathy. Bone windows show no acute findings. Multilevel spondylosis with moderate central stenosis at L2-L3, L4-L5 and L5-S1. Varying degrees of mild to moderate foraminal narrowing throughout. IMPRESSION: 1. No acute abnormality of abdomen or pelvis. Normal appendix. 2. Status post hysterectomy. 3. Possible fecal impaction at the rectal vault. Electronically signed by: Vahid Aponte MD (05/29/2019 2:10 AM) [id number]
[2019-05-29 02:47] VITALS: BP 146/74
[2019-05-29] MEDS ORDERED: NA P133E2 RC (02:48)
[2019-05-29] MEDS ORDERED: PEG4000S8 PO (02:48)
== END 2019-05-29 03:10 | disposition home or self-care (01) ==
LOC: ER 00:39
DX: K56.41 Fecal impaction (principal); F17.200 Nicotine dependence, unspecified, uncomplicated; J44.9 Chronic obstructive pulmonary disease, unspecified; E78.00 Pure hypercholesterolemia, unspecified; E11.9 Type 2 diabetes mellitus without complications; G89.29 Other chronic pain; Z90.710 Acquired absence of both cervix and uterus; Z98.890 Other specified postprocedural states; Z88.0 Allergy status to penicillin; Z88.5 Allergy status to narcotic agent
CPT/HCPCS: 36415; 74176; 80053; 81001; 83690; 85025; 87086; 99284-25

== ENCOUNTER → 2019-08-24 | Emergency (ER) | payer OTHER ==
[~2019-08-24] VITALS: Ht 165.1 cm; Wt 107.3 kg
[~2019-08-24] MED LIST changes: +GABA-585 PO; +LIDO1ADH63 TP; +NA P133E2 RC; +PEG4000S8 PO; +diazePAM 2 MG TABLET PO ONE
--- NOTE | 2019-08-24 01:02 | PHYS DOC ---
Past Medical History Past Medical History: Asthma, Bronchitis, COPD, Diabetes-Type II, High Ch olesterol Additional Past Medical Histor: CHRONIC PAIN Past Surgical History: Hysterectomy Additional Past Surgical Histo: ABD HERNIA, EYE SURGERY, CARPAL TUNNEL RELEASE: R Smoking Status: Current Every Day Smoker Alcohol Use: Rarely Drug Use: None General Adult EDM: Chief Complaint: LOWER EXT PAIN HPI: HPI: 59-year-old female significant history of diabetes mellitus, who presents for evaluation of low back pain, acute on chronic with radiation down the left lower extremity. Prior lumbar instrumentation several years ago. Has had no recent imaging of her lumbar spine. No fall or trauma. No bowel or bladder dysfunction. Review of Systems: Review of Systems: Gen: No fever, chills. Eyes: No blurred vision, diplopia. ENT: No nasal congestion, sore throat. CV: No CP, palpitations. Resp. No SOB, cough. GI: No abd pain, N/V. : No dysuria, hematuria. Neuro: No ABDI, dizziness, weakness. MSK: No myalgia, arthralgia. Reports back pain radiating to the left lower extremity.. Skin: No acute rash or lesion. Heart Score: Risk Factors: Risk Factors: DM, Current or recent (<one month) smoker, HTN, HLP, family history of CAD, obesity. Risk Scores: Score 0 - 3: 2.5% MACE over next 6 weeks - Discharge Home Score 4 - 6: 20.3% MACE over next 6 weeks - Admit for Clinical Observation Score 7 - 10: 72.7% MACE over next 6 weeks - Early Invasive Strategies Current Medications: Current Medications Medications (Trade) Dose Ordered Sig/Dolly Start Time Stop Time Status Last Admin Dose Admin Diazepam (Valium) 2 mg 1X ONCE 08/24/19 01:00 08/24/19 01:01 Allergies: Allergies: Allergies Coded Allergies Type Severity Reaction Last Updated Verified Penicillins Allergy Unknown 04/18/18 Yes prednisone Adverse Reaction Mild "It upsets my stomach." 10/30/17 Yes Physical Exam: PE: Gen: NAD. Head: NC/AT. Eyes: No scleral icterus. No conjunctival injection. ENT: MMM. Posterior OP clear. Neck: Supple. CV: RRR. Peripheral pulses intact. Resp: CTAB. Abd: Soft. NT. ND. MSK: No peripheral cyanosis. No edema. Questionably positive straight leg raise left lower extremity. No calf tenderness or asymmetry. Symmetric bilateral patellar DTRs. Back: No midline spinal tenderness or step-off. Neuro: A&Ox3. Strength & sensation grossly intact throughout. Skin. Warm. Dry. Psych: Appropriate mood & affect. EKG: EKG: [] Radiology/Procedures: Radiology/Procedures: CT scan of the lumbar spine without contrast 08/24/2019 CLINICAL HISTORY: Low back pain. TECHNIQUE: Unenhanced, contiguous, 0.625 mm axial sections were obtained through the lumbar spine. 3 mm reconstructed sagittal, axial and coronal images were obtained. One or more of the following individualized dose reduction techniques were utilized for this study: 1. Automated exposure control. 2. Adjustment of the mA and/or kV according to patient size. 3. Use of iterative reconstruction technique. FINDINGS: Sagittal and coronal reconstructed images demonstrate very mild S-shaped curvature of the thoracolumbar spine. Degenerative changes consisting of varying degrees of disc space narrowing, vertebral endplate sclerosis and mild to moderate anterior and posterior vertebral body osteophyte formation are seen throughout the lumbar disc spaces. The patient appears to be post laminectomy at L5-S1. A right-sided pars defect is seen at L5 (spondylolysis). No spondylolisthesis is seen. Atherosclerotic calcification of the abdominal aorta and its branches is noted. No acute fracture or subluxation of the lumbar vertebrae is seen. The changes of degenerative disc disease are seen involving the lumbar disc spaces. These consist of mild to moderate generalized disc bulges with superimposed disc osteophyte complexes, degenerative changes involving the facet joints and mild to moderate ligamentum flavum hypertrophy. These findings result in mild to moderate central spinal canal stenosis with mild left greater than right neural foraminal stenosis at L2-3, mild central spinal canal stenosis at L3-4 and moderate to severe central spinal canal stenosis with mild bilateral neural foraminal stenosis at L4-5 and mild to moderate right greater than left neural foraminal stenosis is seen at L5-S1. IMPRESSION: The changes of degenerative disc disease are seen throughout the lumbar spine resulting in multilevel central spinal canal and neural foraminal stenosis as discussed above. No acute osseous abnormality is seen. Electronically signed by: Vincent Colmenares MD (08/24/2019 1:42 AM) [id number] Course & Med Decision Making: Course & Med Decision Making Pertinent Labs and Imaging studies reviewed. (See chart for details) In summary, 59-year-old female who presents for evaluation of atraumatic acute on chronic low back pain with radiation in the left lower extremity, suspecting sciatica at this time. CT lumbar spine reveals multilevel degenerative changes which likely accounts for her low back pain. She has had a prior laminectomy at L5-S1. No clinical signs or symptoms of tethered cord or cauda equina. Received oral Valium. We discharged home with outpatient PMD follow-up. Will be prescribed Flexeril, low-dose gabapentin (to be titrated up per discretion of PMD/spine), lidocaine patch. Outpatient spine follow-up. Return precautions given. Dragon Disclaimer: Dragon Disclaimer: This electronic medical record was generated, in whole or in part, using a voice recognition dictation system. Departure Departure Impression: Primary Impression: Left sided sciatica Additional Impression: Lumbar arthropathy Disposition: HOME, SELF-CARE Condition: STABLE Referrals: KEVIN GOETZ MD (PCP) Patient Instructions: Sciatica, [id number], Spinal Stenosis, [id number] Scripts Lidocaine (Lidocaine) 1 Each Adh..patch 1 EACH TP Q12HR, #10 PATCH Apply to low back for 12 hours, and remove for 12 hours prior to reapplying a new patch. Prov: DO 08/24/19 Gabapentin (GABAPENTIN ) 100 Mg Capsule 100 MG PO TID for NEUROGENIC PAIN, #40 CAP Prov: H DO 08/24/19 Cyclobenzaprine Hcl (CYCLOBENZAPRINE HCL) 10 Mg Tablet 1 TAB PO TID, #30 TAB Prov: DO 08/24/19 LE,YADIRA H DO August 24, 2019 01:02
[2019-08-24 01:04] VITALS: BP 141/82
--- NOTE | 2019-08-24 01:45 | RAD ---
CT scan of the lumbar spine without contrast 08/24/2019 CLINICAL HISTORY: Low back pain. TECHNIQUE: Unenhanced, contiguous, 0.625 mm axial sections were obtained through the lumbar spine. 3 mm reconstructed sagittal, axial and coronal images were obtained. One or more of the following individualized dose reduction techniques were utilized for this study: 1. Automated exposure control. 2. Adjustment of the mA and/or kV according to patient size. 3. Use of iterative reconstruction technique. FINDINGS: Sagittal and coronal reconstructed images demonstrate very mild S-shaped curvature of the thoracolumbar spine. Degenerative changes consisting of varying degrees of disc space narrowing, vertebral endplate sclerosis and mild to moderate anterior and posterior vertebral body osteophyte formation are seen throughout the lumbar disc spaces. The patient appears to be post laminectomy at L5-S1. A right-sided pars defect is seen at L5 (spondylolysis). No spondylolisthesis is seen. Atherosclerotic calcification of the abdominal aorta and its branches is noted. No acute fracture or subluxation of the lumbar vertebrae is seen. The changes of degenerative disc disease are seen involving the lumbar disc spaces. These consist of mild to moderate generalized disc bulges with superimposed disc osteophyte complexes, degenerative changes involving the facet joints and mild to moderate ligamentum flavum hypertrophy. These findings result in mild to moderate central spinal canal stenosis with mild left greater than right neural foraminal stenosis at L2-3, mild central spinal canal stenosis at L3-4 and moderate to severe central spinal canal stenosis with mild bilateral neural foraminal stenosis at L4-5 and mild to moderate right greater than left neural foraminal stenosis is seen at L5-S1. IMPRESSION: The changes of degenerative disc disease are seen throughout the lumbar spine resulting in multilevel central spinal canal and neural foraminal stenosis as discussed above. No acute osseous abnormality is seen. Electronically signed by: Vincent Colmenares MD (08/24/2019 1:42 AM) [id number]
== END ==
LOC: ER 00:01
DX: M54.42 Lumbago with sciatica, left side (principal); M12.9 Arthropathy, unspecified; J44.9 Chronic obstructive pulmonary disease, unspecified; E11.9 Type 2 diabetes mellitus without complications; E78.00 Pure hypercholesterolemia, unspecified; G89.29 Other chronic pain; F17.200 Nicotine dependence, unspecified, uncomplicated; Z90.710 Acquired absence of both cervix and uterus; Z98.890 Other specified postprocedural states; Z88.0 Allergy status to penicillin; Z88.8 Allergy status to other drugs, medicaments and biological substances
CPT/HCPCS: 72131; 99284

== ENCOUNTER 2020-07-23 08:27 | Emergency (ER) | payer OTHER ==
[~2020-07-23] VITALS: Ht 165.1 cm; Wt 110.9 kg
[~2020-07-23 08:27] MED LIST changes: -diazePAM 2 MG TABLET PO ONE
[2020-07-23] MEDS ORDERED: ONDANSETRON PF 4 MG/2 ML VIAL. IM ONE (09:00)
[2020-07-23] MEDS ORDERED: MORPHINE SULFATE 4 MG/ML VIAL. IM ONE (09:00)
--- NOTE | 2020-07-23 09:11 | PHYS DOC ---
Past Medical History Past Medical History: Asthma, Bronchitis, COPD, Diabetes-Type II, High Ch olesterol Additional Past Medical Histor: CHRONIC PAIN Past Surgical History: Hysterectomy Additional Past Surgical Histo: ABD HERNIA, EYE SURGERY, CARPAL TUNNEL RELEASE: R Smoking Status: Current Some Day Smoker Alcohol Use: None Drug Use: None General Adult EDM: Chief Complaint: ABDOMINAL PAIN HPI: HPI: Patient is a 60 year old female with history of diabetes and hyperlipidemia presents emergency department for abdominal pain. Patient reports on Thursday she got [place] food on the way home from work. She could not eat it because she was having epigastric abdominal pain. She reports this continued yesterday. Patient reports she works 24 hour and could not get to the emergency department until today. She reports that the pain is worse with eating. No nausea vomiting diarrhea constipation dysuria hematuria chest pain shortness of breath fever chills headache syncope numbness or weakness. Patient has had abdominal hernia surgery but no other surgeries on her abdomen. Patient is not a smoker. Denies drugs or alcohol. Review of Systems: Review of Systems: Review of Systems: Constitutional: Denies fever or chills Eyes: Denies redness or eye pain HENT: Denies nasal congestion or sore throat Respiratory: Denies cough or shortness of breath Cardiovascular: Denies chest pain or palpitations GI: denies nausea, denies vomiting or diarrhea : Denies dysuria or hematuria Musculoskeletal: Denies back pain or joint pain Integument: Denies rash or skin lesions Neurologic: Denies headache, focal weakness or sensory changes Heart Score: C/O Chest Pain: No HEART Score for Chest Pain: HEART Score for Chest Pain Response (Comments) Value History Slighlty/Non-Suspicious 0 ECG Normal 0 Age >45 - < 65 1 Risk Factors >3 Risk Factors or Hx CAD 2 Troponin < Normal Limit 0 Total 3 Risk Factors: Risk Factors: DM, Current or recent (<one month) smoker, HTN, HLP, family history of CAD, obesity. Risk Scores: Score 0 - 3: 2.5% MACE over next 6 weeks - Discharge Home Score 4 - 6: 20.3% MACE over next 6 weeks - Admit for Clinical Observation Score 7 - 10: 72.7% MACE over next 6 weeks - Early Invasive Strategies Allergies: Allergies: Allergies Coded Allergies Type Severity Reaction Last Updated Verified Penicillins Allergy Unknown 04/18/18 Yes prednisone Adverse Reaction Mild "It upsets my stomach." 10/30/17 Yes Physical Exam: PE: *GENERAL APPEARANCE: Awake and alert. Cooperative. No acute distress. Non toxic appearing. HEAD: Normocephalic. Atraumatic. EYES: EOM's grossly intact. Sclera anicteric. Conjunctiva clear ENT:. Airway patent. Mucous membranes moist. No trismus. Tolerating secretions. NECK: Supple. Trachea midline. HEART: Regular rate and rhythm. Radial pulses 2+. Good capillary refill. LUNGS: Respirations unlabored. Clear to auscultation bilaterally. No rales, rhonchi, wheezing or retractions. ABDOMEN: Soft. Epigastric and left upper quadrant abdominal tenderness. No guarding or rebound. No CVA tenderness. No palpable or pulsatile mass. EXTREMITIES: No acute deformities. No edema, erythema or calf tenderness. SKIN: Warm and dry. No rash. NEUROLOGICAL: Alert and oriented x3. No gross neurological deficits. Moves all 4 extremities spontaneously. PSYCHIATRIC: Normal mood. Current Patient Data: Vital Signs: Vital Signs Date Time Temp Pulse Resp B/P (MAP) Pulse Ox O2 Delivery O2 Flow Rate FiO2 07/23/20 08:38 98.1 80 18 130/60 (83) 97 Room Air 98.1 EKG: EKG: [] EKG interpretation shows normal sinus rhythm with ventricular rate of 70 bpm. DE interval 164 ms. QRS duration of 92 ms. QTc [address] segment elevations Repeat EKG shows normal sinus rhythm with ventricular rate of 65 bpm. DE interval 178 ms. QRS duration 96 ms. QTc 460 ms. No acute changes. Radiology/Procedures: Radiology/Procedures: [] Course & Med Decision Making: Course & Med Decision Making Medical decision making: This is a 60-year-old female presents with epigastric pain that started 2 days ago. Here in the emergency department patient's vital signs are stable. She appears in no acute distress. She does have some epigastric and left upper quadrant abdominal tenderness. Patient was given morphine Zofran GI cocktail. This did not help much. She was given additional dose of morphine. Labs show no leukocytosis Troponin negative x2. LFTs normal. Lipase is normal. Lactate was initially 2 .8. Did improve to 1.5. Urine does not appear overtly infected.Ultrasound showed normal gallbladder CT abdomen showed no acute findings. I reevaluated this patient multiple times in the emergency department. . She continued to have pain. She did sleep. At this time based on patient's symptoms I recommended admission to the hospital for further observation evaluation. Patient initially told me there is no way she could stay in the hospital. I would like to p.o. challenge this patient. She did agree to that. She did drink some water and felt okay. She was given diabetic diet and food. Patient reports that the pain increased with food. At this time again I recommended admission to the hospital for further observation evaluation. Patient reports s he has to work. She has grandchildren to take care of. There is no way she can stay at the hospital. We discussed risk versus benefit of admission versus discharge including worsening symptoms including but not limited to and disability. Patient is awake alert oriented has capacity make her own decisions. I urged her to return at any point to continue evaluation if she c hanges her mind. She should follow-up as soon as possible. She expressed a verbal understanding of my concerns and instructions. The patient is aware of any labs and imaging. All questions are answered and patient is stable at the time of discharge. PATIENT: RICKY CLAIRE LACCOUNT: [id number] : 1960 LOCATION: ER AGE: 60 SEX: F EXAM STATUS: REG ER ORD. PHYSICIAN: JAMES DOTY DO REASON: upper abdominal pain PROCEDURE: CHEST AP ONLY EXAM: Chest, single view. HISTORY: Pain. COMPARISON: 04/20/2019 FINDINGS: A frontal view of the chest obtained. There is stable mild diffuse increased interstitial opacity. There is no consolidation, pleural effusion or pneumothorax. The heart is normal in size. There is nodular opacity overlying the left lung base which is likely due to overlying osseous shadows. IMPRESSION: 1. Stable suspected chronic diffuse increased interstitial opacity. No consolidated infiltrate is seen. 2. Nodular opacity overlying the left lung base likely due to overlying osseous artifact. Is no suspicious nodule in this location on the CT performed earlier on the same date. Electronically signed by: Charlotte Leon MD (07/23/2020 11:06 AM) [id number] DICTATED and SIGNED BY: CHARLOTTE LEON MD DATE: 07/23/20 [id number] PATIENT: RICKY CLAIRE LACCOUNT: [id number] : 1960 LOCATION: ER AGE: 60 SEX: F EXAM STATUS: REG ER ORD. PHYSICIAN: JAMES DOTY DO REASON: epigastric pain PROCEDURE: ABDOMEN LTD Limited abdomen ultrasound study right upper quadrant Clinical indications: Right upper quadrant epigastric pain. FINDINGS: The pancreas and midline structures are obscured due to overlying bowel gas. There is severe attenuation of sound throughout the liver which may be seen with fatty infiltration of the liver. This severely limits sonographic evaluation for focal hepatic lesions. The liver is enlarged measuring 20.3 cm in length. No gallstones or gallbladder wall thickening are seen. The extra hepatic bile duct is partially visualized and measures 4 mm in caliber which is normal. The length of the right kidney is 12.2 cm. The right kidney is not well visualized but no hydronephrosis or perinephric fluid collection is seen. IMPRESSION: Hepatomegaly. Severe fatty infiltration liver. Gallbladder appears normal. Midline structures including the pancreas are not visualized due to overlying bowel gas. Electronically signed by: Hernan Novak MD (07/23/2020 9:59 AM) [id number] DICTATED and SIGNED BY: HERNAN NOVAK MD DATE: 07/23/20 [id number] OB: 1960 LOCATION: ER AGE: 60 SEX: F EXAM STATUS: REG ER ORD. PHYSICIAN: JAMES DOTY DO REASON: abdominal pain PROCEDURE: CT ABD PELV W/ IV CONTRST ONLY Axial CT of the abdomen and pelvis were obtained after the administration of 75 cc Omnipaque 300. Coronal and sagittal reformats are also available. Exposure: One or more of the following individualized dose reduction techniques were utilized for this examination: 1. Automated exposure control 2. Adjustment of the mA and/or kV according to patient size 3. Use of iterative reconstruction technique Indication: Abdominal pain. Comparison: 05/29/2019. Findings: Lung bases are clear. Heart is unenlarged. Liver, spleen, adrenals, kidneys gallbladder and pancreas are unremarkable. The stomach, small and large bowel are nondistended. No evidence pathologic wall thickening. The appendix is visualized and is unremarkable in appearance. No free air-fluid. No radiologically significant retroperitoneal or mesenteric lymphadenopathy is identified. There is degenerative change lumbar spine without other acute traumatic changes. Abdominal aorta is mildly calcified without significant stenosis or aneurysmal dilation. Portal, superior mesenteric and splenic veins are normal in appearance. IMPRESSION: Normal in no acute changes are identified. Electronically signed by: Dominic Fleming MD (07/23/2020 10:48 AM) [id number] DICTATED and SIGNED BY: DOMINIC FLEMING MD DATE: 07/23/20 [id number] Dragon Disclaimer: Dragon Disclaimer: This electronic medical record was generated, in whole or in part, using a voice recognition dictation system. Departure Departure Impression: Primary Impression: Abdominal pain Qualified Codes: R10.84 - Generalized abdominal pain Disposition: HOME / SELF CARE / HOMELESS Condition: STABLE (Patient stable at time of discharge.) Referrals: DYLAN BALBUENA JR, MD (PCP) Scripts Ondansetron Hcl (ONDANSETRON HCL) 4 Mg Tablet 1 TAB PO PRN Q6HRS PRN for NAUSEA, #10 TAB 1 Refill Prov: JAMES DOTY DO 07/23/20 Ondansetron Hcl (ONDANSETRON HCL) 4 Mg Tablet 1 TAB PO PRN Q6HRS, #10 TAB 1 Refill Prov: JAMES DOTY DO 07/23/20 Famotidine (PEPCID) 20 Mg Tablet 20 MG PO DAILY, #30 TAB Prov: JAMES DOTY DO 07/23/20 JAMES DOTY DO Jul 23, 2020 09:11
[2020-07-23] MEDS ORDERED: MORPHINE SULFATE 4 MG/ML VIAL. IV ONE ×2 (09:15→11:30)
[2020-07-23 09:17] LABS: BILIRUBIN,URINE NEGATIVE (NEG); CLARITY,URINE CLEAR; COLOR,URINE YELLOW; NITRITE,URINE NEGATIVE (NEG); PH,URINE 6.5 (<5.0-8.0); PROTEIN,URINE NEGATIVE (NEG-TRACE); UROBILINOGEN,URINE 0.2 mg/dL (0.2 mg/dL)
[2020-07-23] MEDS ORDERED: ONDANSETRON PF 4 MG/2 ML VIAL. IVP ONE (09:30)
[2020-07-23 09:49] LABS: BACTERIA,URINE FEW /HPF (0-FEW); RBC,URINE 0 /HPF (0-2); WBC,URINE 0 /HPF (0-4)
[2020-07-23 09:59] LABS: BASO # 0.1 x10^3/uL (0.0-0.2); BASO % 1 % (0-3); EOS # 0.3 x10^3/uL (0.0-0.7); EOS % 4 % (0-3); HEMATOCRIT 38.7 % (36.0-47.0); HEMOGLOBIN 12.8 g/dL (12.0-15.5); LYMPH # 2.7 x10^3/uL (1.0-4.8); LYMPH % 34 % (24-48); MEAN CORPUSCULAR HEMOGLOBIN 27 pg (25-35); MEAN CORPUSCULAR HGB CONC 33 g/dL (31-37); MEAN CORPUSCULAR VOLUME 80 fL (79-100); MONO # 0.6 x10^3/uL (0.0-1.1); MONO % 7 % (0-9); NEUT # 4.4 x10^3/uL (1.8-7.7); NEUT % 55 % (31-73); PLATELET COUNT 199 x10^3/uL (140-400); RED BLOOD COUNT 4.82 x10^6/uL (3.50-5.40); RED CELL DISTRIBUTION WIDTH 15.6 % (11.5-14.5); WHITE BLOOD COUNT 8.1 x10^3/uL (4.0-11.0)
--- NOTE | 2020-07-23 10:02 | RAD ---
Limited abdomen ultrasound study right upper quadrant Clinical indications: Right upper quadrant epigastric pain. FINDINGS: The pancreas and midline structures are obscured due to overlying bowel gas. There is sever e attenuation of sound throughout the liver which may be seen with fatty infiltration of the liver. T his severely limits sonographic evaluation for focal hepatic lesions. The liver is enlarged measuring 20.3 cm in length. No gallstones or gallbladder wall thickening are seen. The extra hepatic bile kirt t is partially visualized and measures 4 mm in caliber which is normal. The length of the right kidne y is 12.2 cm. The right kidney is not well visualized but no hydronephrosis or perinephric fluid charlie ection is seen. IMPRESSION: Hepatomegaly. Severe fatty infiltration liver. Gallbladder appears normal. Midline structures including the pancreas are not visualized due to overlying bowel gas. Electronically signed by: Curtis Novak MD (07/23/2020 9:59 AM) [id number]
[2020-07-23 10:07] LABS: CALCIUM 8.5 mg/dL (8.5-10.1); CREATININE 0.8 mg/dL (0.6-1.0); GFR 72.9; POTASSIUM 4.1 mmol/L (3.5-5.1)
[2020-07-23 10:13] LABS: ALBUMIN 3.2 g/dL (3.4-5.0); ALBUMIN/GLOBULIN RATIO 0.9 (1.0-1.7); TOTAL BILIRUBIN 0.2 mg/dL (0.2-1.0); TOTAL PROTEIN 6.8 g/dL (6.4-8.2)
--- NOTE | 2020-07-23 10:17 | EKG ---
[facility] [address] [place] [address] Test Date: 2020-07-23 Test Time: 09:00:19 Pat Name: RICKY CLAIRE Department: Room: Gender: F [employer]: : 1960 Requested By: JAMES DOTY Order Number: [id number] Reading MD: Measurements Intervals [place] Rate: 78 P: 52 WA: 164 QRS: 20 QRSD: 92 T: 28 QT: 392 QTc: 451 Interpretive Statements SINUS RHYTHM LEFT ATRIAL ABNORMALITY ABNORMAL ECG RI6.02 No previous ECG available for comparison
[2020-07-23] MEDS ORDERED: CONTRAST GIVEN. MC PRN (10:30)
[2020-07-23] MEDS ORDERED: IOHEXOL 300 MG/ML 100ML VIAL. IV ONE (10:30)
--- NOTE | 2020-07-23 10:50 | RAD ---
Axial CT of the abdomen and pelvis were obtained after the administration of 75 cc Omnipaque 300. Cor onal and sagittal reformats are also available. Exposure: One or more of the following individualized dose reduction techniques were utilized for thi s examination: 1. Automated exposure control 2. Adjustment of the mA and/or kV according to patient size 3. Use of iterative reconstruction technique Indication: Abdominal pain. Comparison: 05/29/2019. Findings: Lung bases are clear. Heart is unenlarged. Liver, spleen, adrenals, kidneys gallbladder and pancreas are unremarkable. The stomach, small and large bowel are nondistended. No evidence pathologic wall thickening. The appe ndix is visualized and is unremarkable in appearance. No free air-fluid. No radiologically significan t retroperitoneal or mesenteric lymphadenopathy is identified. There is degenerative change lumbar sp ine without other acute traumatic changes. Abdominal aorta is mildly calcified without significant stenosis or aneurysmal dilation. Portal, supe rior mesenteric and splenic veins are normal in appearance. IMPRESSION: Normal in no acute changes are identified. Electronically signed by: Dominic Fleming MD (07/23/2020 10:48 AM) [id number]
--- NOTE | 2020-07-23 11:08 | RAD ---
EXAM: Chest, single view. HISTORY: Pain. COMPARISON: 04/20/2019 FINDINGS: A frontal view of the chest obtained. There is stable mild diffuse increased interstitial o pacity. There is no consolidation, pleural effusion or pneumothorax. The heart is normal in size. The re is nodular opacity overlying the left lung base which is likely due to overlying osseous shadows. IMPRESSION: 1. Stable suspected chronic diffuse increased interstitial opacity. No consolidated infiltrate is see n. 2. Nodular opacity overlying the left lung base likely due to overlying osseous artifact. Is no suspi cious nodule in this location on the CT performed earlier on the same date. Electronically signed by: Charlotte Maldonado MD (07/23/2020 11:06 AM) [id number]
--- NOTE | 2020-07-23 14:07 | EKG ---
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
[2020-07-23] MEDS ORDERED: FAMO-63 PO (15:44)
[2020-07-23 15:45] VITALS: BP 133/82
[2020-07-23] MEDS ORDERED: ONDA-84 PO ×2 (16:23→16:32)
== END 2020-07-23 16:48 | disposition home or self-care (01) ==
LOC: ER 08:27
DX: R10.84 Generalized abdominal pain (principal); J44.9 Chronic obstructive pulmonary disease, unspecified; E11.9 Type 2 diabetes mellitus without complications; E78.00 Pure hypercholesterolemia, unspecified; G89.29 Other chronic pain; Z90.710 Acquired absence of both cervix and uterus; Z98.890 Other specified postprocedural states; Z87.891 Personal history of nicotine dependence; Z88.0 Allergy status to penicillin; Z88.8 Allergy status to other drugs, medicaments and biological substances
CPT/HCPCS: 36415; 71045; 74177; 76705; 80053; 81001; 83605; 83690; 84484; 85025; 93005; 96374; 96375; 96376; 99285; J2270; J2405; Q9967

== ENCOUNTER → 2020-12-03 | Outpatient (CLI) | payer OTHER ==
[2020-11-03 11:00] VITALS: BP 128/74
[~2020-12-03] MED LIST changes: +FAMO-63 PO; +HYDR-2763 PO; +ONDA-84 PO
--- NOTE | 2020-12-03 12:37 | RAD ---
EXAM: HEPATOBILIARY SCINTIGRAPHY. HISTORY: Abdominal pain/nausea. TECHNIQUE: 5 mCi technetium-99m Choletec were administered intravenously and scintigraphic images of the abdomen obtained. FINDINGS: There is prompt hepatic clearance of tracer from the blood pool. There is homogeneous distr ibution throughout the liver. There is normal filling of the gallbladder and clearance into the bilia ry tree and small bowel. Gallbladder ejection fraction was not calculated. The patient could not cont inue with the study given severe back pain. IMPRESSION: 1. Filling of the gallbladder indicates the duct patency. Electronically signed by: Monica Smalls MD (12/03/2020 12:35 PM) [id number]
== END ==
LOC: NM 07:49
PROVIDERS: ATTEND Internal Medicine Gastroenterology
DX: R10.13 Epigastric pain (principal); R11.0 Nausea
CPT/HCPCS: 78227; A9537

== ENCOUNTER → 2020-12-12 | Outpatient (CLI) | payer OTHER ==
[2020-11-03 11:00] VITALS: BP 128/74
[~2020-12-12] MED LIST changes: +POTA-121 PO; -POTA20TA4 PO
--- NOTE | 2020-12-12 13:47 | CARD ---
MR#: [id number] Date of Study: 12/12/2020 Ordering Physician: MICHAEL VAUGHAN, Referring Physician: MICHAEL VAUGHAN Tech: Xiomara Welch [facility] APPROVED REPORT EXAM: Two-dimensional and M-mode echocardiogram with Doppler and color Doppler. Other Information Quality : Technically LimitedHR: 96bpm Rhythm : NSR INDICATION Dyspnea RISK FACTORS Obesity Hyperlipidemia Diabetes 2D DIMENSIONS Left Atrium(2D)3.4 (1.6-4.0cm)IVSd1.2 (0.7-1.1cm) Aortic Root(2D)3.4 (2.0-3.7cm)LVDd3.6 (3.9-5.9cm) LVOT Diameter2.1 (1.8-2.4cm)PWd1.2 (0.7-1.1cm) LVDs2.7 (2.5-4.0cm)FS (%) 26.1 % SV28.6 mlLVEF(%)52.1 (>50%) Aortic Valve AoV Peak Ismael.147.1cm/sAoV VTI27.6cm AO Peak GR.8.7mmHgLVOT Peak Ismael.129.0cm/s AO Mean GR.4mmHgAVA (VMAX)3.10cm2 Mitral Valve MV E Rezzortn71.4cm/sMV DECEL [id number] MV A Jnbxpseq742.5cm/sE/A Ratio0.6 Pulmonary Valve PV Peak Yajafeyn035.0cm/s LEFT VENTRICLE The left ventricle is normal size. There is mild concentric left ventricular hypertrophy. The left ve ntricular systolic function is normal and the ejection fraction is within normal range. Estimated eje ction fraction 55-60%. There is normal LV segmental wall motion. Transmitral Doppler flow pattern is Grade I-abnormal relaxation pattern. RIGHT VENTRICLE The right ventricle is normal size. There is normal right ventricular wall thickness. The right ventr icular systolic function is normal. ATRIA The left atrium size is normal. The right atrium size is normal. The interatrial septum is intact wit h no evidence for an atrial septal defect or patent foramen ovale as noted on 2-D or Doppler imaging. AORTIC VALVE The aortic valve is normal in structure and function. Doppler and Color Flow revealed no significant aortic regurgitation. There is no significant aortic valvular stenosis. MITRAL VALVE The mitral valve is normal in structure and function. There is no evidence of mitral valve prolapse. There is no mitral valve stenosis. Doppler and Color Flow revealed trace mitral valve regurgitation. TRICUSPID VALVE The tricuspid valve is normal in structure and function. Doppler and Color Flow revealed no tricuspid valve regurgitation noted. There is no tricuspid valve stenosis. PULMONIC VALVE The pulmonary valve is normal in structure and function. GREAT VESSELS The aortic root is normal in size. The ascending aorta is normal in size. The IVC is normal in size a nd collapses >50% with inspiration. PERICARDIAL EFFUSION There is no evidence of significant pericardial effusion. Critical Notification Critical Value: No <Conclusion> The left ventricle is normal size. The left ventricular systolic function is normal and the ejection fraction is within normal range. Estimated ejection fraction 55-60%. There is normal LV segmental wall motion. There is mild concentric left ventricular hypertrophy. Doppler and Color Flow revealed no significant aortic regurgitation. There is no significant aortic valvular stenosis. Doppler and Color Flow revealed trace mitral valve regurgitation. Doppler and Color Flow revealed no tricuspid valve regurgitation noted. Signed by : Fito Hubbard MD Electronically Approved : 12/12/2020 13:47:38
== END ==
LOC: ECHO 10:59
PROVIDERS: ATTEND Internal Medicine Cardiovascular Disease
DX: I51.7 Cardiomegaly (principal); I10 Essential (primary) hypertension; R06.00 Dyspnea, unspecified; E11.9 Type 2 diabetes mellitus without complications; E78.5 Hyperlipidemia, unspecified; E66.9 Obesity, unspecified; Z68.44 Body mass index [BMI] 60.0-69.9, adult
CPT/HCPCS: 93306

== ENCOUNTER 2020-12-24 10:38 | Emergency (ER) | payer OTHER ==
[2020-11-03 11:00] VITALS: BP 128/74
== END 2020-12-24 13:11 | disposition left against medical advice (07) ==
LOC: ER 10:38
DX: R05 Cough (principal); Z53.21 Procedure and treatment not carried out due to patient leaving prior to being seen by health care provider

== ENCOUNTER → 2021-01-16 | Day surgery (SDC) | payer OTHER ==
[~2021-01-16] VITALS: Ht 165.1 cm; Wt 109.0 kg
[~2021-01-16] MED LIST changes: +GLIM2TAB7 PO; +IV RINGERS,LACTATED 1000ML 1,000 ML IV SCH; +PROPOFOL 10 MG/ML (20ML) VIAL. IV ONE
[2021-01-16 07:21] VITALS: BP 158/72
[2021-01-16 08:18] VITALS: BP 143/76
--- NOTE | 2021-01-16 09:19 | HP ---
ADMIT DATE: 01/16/2021 REFERRING PHYSICIAN: Samuel Zamudio APRN REASON FOR CONSULTATION: Epigastric pain, nausea. HISTORY OF PRESENT ILLNESS: A 60-year-old female with past medical history significant for COPD, osteoarthrosis, diabetes, hypertension, seen with recurrent epigastric pain, belching and nausea, exacerbated with eating. Ejection fraction previously had not been performed due to analgesic use. Family history is positive for gallbladder disease with her daughter. Fatty, greasy foods are avoided due to the pain which they cause. An interval EGD is recommended to further assess her symptoms. PAST MEDICAL HISTORY: Diabetes, hypertension, hyperlipidemia, COPD. ALLERGIES: PENICILLIN, PREDNISONE. MEDICATIONS: Include albuterol, aspirin, cyclobenzaprine, diclofenac, gabapentin, glimepiride, hydrochlorothiazide, hydrocodone, lidocaine, meloxicam, metformin, metoprolol, Zofran, tizanidine, tramadol and trazodone. FAMILY AND SOCIAL HISTORY: Significant for diabetes, [place], hypertension with multiple family members. She is a current smoker and nondrinker. PAST SURGICAL HISTORY: Significant for eye surgery, tonsillectomy, hysterectomy, hiatal hernia surgery and back surgery. REVIEW OF SYSTEMS: Per records. PHYSICAL EXAMINATION: GENERAL: Reveals a well-nourished, well-developed female. VITAL SIGNS: Temperature is 97, pulse 87, respiratory rate is 20. LUNGS: Clear. CARDIOVASCULAR: Reveals an S1, S2, without S3, S4 or appreciable murmur. ABDOMEN: Reveals a soft abdomen, normal bowel sounds, without appreciable hepatosplenomegaly. EXTREMITIES: Reveals no cyanosis, clubbing or edema. IMPRESSION: Epigastric abdominal pain with nausea, family history of gallbladder disease. Differential includes peptic ulcer disease, gastroparesis, chronic cholecystitis among others; therefore, I recommend upper endoscopy, possible biopsy and/or dilatation. Risks and benefits of procedure have been discussed. The patient is willing to proceed. OMAR/GRISEL DR: Clayton TID: [id number]
== END | disposition home or self-care (01) ==
LOC: ENDOS 06:54
PROVIDERS: ATTEND Internal Medicine Gastroenterology
DX: R10.13 Epigastric pain (principal); R11.0 Nausea; K44.9 Diaphragmatic hernia without obstruction or gangrene; K31.89 Other diseases of stomach and duodenum; I10 Essential (primary) hypertension; E11.9 Type 2 diabetes mellitus without complications; J44.9 Chronic obstructive pulmonary disease, unspecified; E78.00 Pure hypercholesterolemia, unspecified; E66.9 Obesity, unspecified; K21.9 Gastro-esophageal reflux disease without esophagitis; M19.90 Unspecified osteoarthritis, unspecified site; F17.210 Nicotine dependence, cigarettes, uncomplicated; Z79.82 Long term (current) use of aspirin; Z79.84 Long term (current) use of oral hypoglycemic drugs; Z79.899 Other long term (current) drug therapy; Z90.710 Acquired absence of both cervix and uterus; Z98.890 Other specified postprocedural states; Z82.49 Family history of ischemic heart disease and other diseases of the circulatory system; Z83.3 Family history of diabetes mellitus; Z88.0 Allergy status to penicillin; Z88.8 Allergy status to other drugs, medicaments and biological substances
CPT/HCPCS: 43235; J2704

== ENCOUNTER → 2021-06-04 | Outpatient (CLI) | payer OTHER ==
[2021-01-16 08:18] VITALS: BP 143/76
[~2021-06-04] MED LIST changes: +CYCL10TA19 PO; -CYCL10TA2 PO; -IV RINGERS,LACTATED 1000ML 1,000 ML IV SCH; -PROPOFOL 10 MG/ML (20ML) VIAL. IV ONE; +TIZA-75 PO; -TIZA4TAB2 PO
--- NOTE | 2021-06-05 09:02 | RAD ---
NM GASTRIC EMPTYING STUDY History: Reason: ABDOMINAL PAIN, NAUSEA / Spl. Instructions: / History: COMPARISON: None. TECHNIQUE: Serial static images were obtained over the stomach following oral administration of 2 mCi of 99m-Tc sulfur colloid in an egg based meal. FINDINGS: The stomach appears normal in contour. There is clearance of activity into the small bowel. The remaining fraction of gastric activity is as follows. 1 hour 74% (normal range 34.8-91%) 2 hour 45% (normal range 2.7-60%) 3 hour 26% (normal range 0.5-28%) 4 hour 14% (normal range 0-10%) IMPRESSION: 1. Borderline increased retention of gastric contents at 4 hours, may indicate slightly delayed gastr ic emptying. Electronically signed by: Christophe Vazquez DO (06/05/2021 9:00 AM) [id number]
== END ==
LOC: NM 08:48
PROVIDERS: ATTEND Internal Medicine Gastroenterology
DX: R10.9 Unspecified abdominal pain (principal); R11.0 Nausea
CPT/HCPCS: 78264; A9541

== ENCOUNTER 2021-06-13 07:00 | Day surgery (SDC) | payer OTHER ==
[~2021-06-13] VITALS: Ht 165.1 cm; Wt 100.0 kg
[~2021-06-13 07:00] MED LIST changes: +CLINDAMYCIN 900MG PREMIX 50 ML IV PRN; +HYDROmorphone 2 MG/ML INJ. IVP PRN; +IV RINGERS,LACTATED 1000ML 1,000 ML IV SCH; +PROCHLORPERAZINE 10 MG/2 ML VIAL. IVP PRN; +fentaNYL PF VIAL 100 MCG/2 ML VIAL IVP PRN
[2021-06-13] MEDS ORDERED: BUPIVACAINE MPF 0.5% 30 ML VIAL. ONE (07:22)
[2021-06-13] MEDS ORDERED: LIDOCAINE 1% PF 30 ML VIAL. ONE (07:22)
[2021-06-13] MEDS ORDERED: INSULIN LISPRO 100 UNIT/ML 3ML VIAL for OP,RR ONLY. SQ PRN (07:30)
[2021-06-13] MEDS ORDERED: INSULIN LISPRO 100 UNIT/ML 3ML VIAL for OP,RR ONLY. SQ ONE (07:45)
[2021-06-13] MEDS ORDERED: HYDR-2759 PO (07:59)
--- NOTE | 2021-06-13 08:00 | DISCH ---
DISCHARGE INSTRUCTIONS Condition on Discharge Condition on Discharge: Stable Activity After Discharge Activity Instructions for Disc: Activity as tolerated Bathing Instructions: Shower-keep dressing dry Lifting Instructions after Dis: No heavy lifting, No pulling or pushing, Do not lift >10 pounds Exercise Instruction after Dis: Progress as tolerated Driving Instructions after Dis: Do not drive today Weight Bearing Status after Di: As tolerated Diet after Discharge Diet after Discharge: Regular Diet Texture: Regular Liquid Texture: Thin Liquid Swallowing Supervision: None needed Wound Incision Care Wound/Incision Care: Ice to area for comfort, Keep wound/cast CDI, Keep wound elevated, Change dressing Other wound/incision instructi: change dressing in 2 days Checks after Discharge Checks after discharge: Check blood press - daily, Check blood sugar, ac/hs, Check your Temp as needed Contacting the DR. after DC Call your doctor for: Concerns you may have Follow-Up Follow up with: Kassy in 2wks Treatment/Equipment after DC Adaptive Equipment Issued: None TAMIKO CRUZ II, MD Jun 13, 2021 08:00
--- NOTE | 2021-06-13 08:04 | PDOC4 ---
Operative Note Operative Note Date of procedure: Surgeon: Andrews Cruz Diamond Grinder: JONATHAN Russo Preoperative diagnosis: left carpal tunnel syndrome Postoperative diagnosis: Same Procedure performed: Open left carpal tunnel release Anesthesia: Salunga block with sedation Findings: normal appearing median nerve Blood loss: 2 ml Tourniquet time: less than 20 minutes Complications: none Reason for procedure: Patient is very pleasant individual who has had long- standing symptoms consistent with their electromyographically proven EMG diagnosis of carpal tunnel syndrome. We had tried and failed conservative therapies and had a discussion of the risks, benefits, alternatives to the above surgery and they wished to proceed. Description of procedure: Patient was greeted in the preoperative area by myself for the correct extremity was verified and marked. They were then taken back to the operative suite, antibiotics were started as they were brought back. Once in the operating room, patient was transferred gently supine to the operating room table. The hand board attached and was applied to the operating room table. She underwent successful induction of a Salunga block followed by sedation. The left upper extremity was then prepped and draped in our usual sterile fashion and we conducted our standard preoperative timeout. After this, I made an incision over the transverse carpal ligament from the distal wrist crease into the palm through a palmar crease. I incised skin with a scalpel and dissected subcutaneous tissue with a curved hemostat. I used bipolar cautery for hemostasis. Identified the palmar fascia and incised this in line with the skin incision and then placed myself retaining retractor. I identified the transverse carpal ligament and incised this with a scalpel. I then placed a Ragnell retractor in the distal portion of the incision, spread above and below small remaining portion of the transverse carpal ligament and transected this with a tenotomy scissors into the palm. After this, I repeated this maneuver and an ulnar directed fashion to release the distal antebrachial fascia at the proximal portion of the incision. I then palpated along the course of the median nerve with the tip of the tenotomies to help ensure that accomplished a complete release. The operative field was then irrigated out with sterile saline. After this, skin was closed with 3-0 nylon in a mattress fashion. A sterile bulky soft dressing was then applied to the patients hand and wrist. The tourniquet was let down, hemostasis had been achieved with electrocautery. Patient tolerated surgery well. No complications. At the conclusion, they were awakened and transferred gently supine to the recovery room cart and taken to the PACU in a stable and extubated condition. Postoperative plan is to discharge patient home. Frequent range of motion at digits and wrist was encouraged. The patient was instructed not to lift anything heavy. We will see her back in 2 weeks, sooner should a problem arise. ANDREWS CRUZ II, MD Jun 13, 2021 08:04
[2021-06-13] MEDS ORDERED: LIDOCAINE 2% PF 5 ML VIAL. ONE (08:12)
[2021-06-13] MEDS ORDERED: PROPOFOL 10 MG/ML (20ML) VIAL. IV ONE ×3 (08:12→08:43)
[2021-06-13] MEDS ORDERED: ONDANSETRON PF 4 MG/2 ML VIAL. ONE (08:12)
[2021-06-13] MEDS ORDERED: fentaNYL PF VIAL 100 MCG/2 ML VIAL ONE (08:13)
[2021-06-13] MEDS ORDERED: MORPHINE SULFATE 2 MG/ML INJ. ONE (09:18)
[2021-06-13] MEDS: MORPHINE SULFATE 2 MG/ML INJ. IVP PRN ×2 (09:21→09:35)
[2021-06-13 09:30] VITALS: BP 149/70
[2021-06-13] MEDS ORDERED: HYDROcodone/APAP 5/325MG 1 TAB TABLET ONE (09:33)
[2021-06-13] MEDS ORDERED: HYDROcodone/APAP 5/325MG 1 TAB TABLET PO ONE (09:45)
== END 2021-06-13 10:11 | disposition home or self-care (01) ==
LOC: SURG 07:00
PROVIDERS: ATTEND Orthopaedic Surgery Sports Medicine
DX: G56.02 Carpal tunnel syndrome, left upper limb (principal); I10 Essential (primary) hypertension; E78.00 Pure hypercholesterolemia, unspecified; J44.9 Chronic obstructive pulmonary disease, unspecified; E66.9 Obesity, unspecified; E11.9 Type 2 diabetes mellitus without complications; K21.9 Gastro-esophageal reflux disease without esophagitis; M19.90 Unspecified osteoarthritis, unspecified site; Z79.82 Long term (current) use of aspirin; Z79.84 Long term (current) use of oral hypoglycemic drugs; Z79.899 Other long term (current) drug therapy; Z90.710 Acquired absence of both cervix and uterus; Z98.890 Other specified postprocedural states; Z87.891 Personal history of nicotine dependence; Z88.0 Allergy status to penicillin; Z88.8 Allergy status to other drugs, medicaments and biological substances
CPT/HCPCS: 64721; 82962; A4930; A6223; A6402; J1815; J2270; J2405; J2704; J3010; J3490; A4223; A4452

== ENCOUNTER 2021-07-23 05:20 | Emergency (ER) | payer OTHER ==
[~2021-07-23] VITALS: Ht 165.1 cm; Wt 107.7 kg
[~2021-07-23 05:20] MED LIST changes: -CLINDAMYCIN 900MG PREMIX 50 ML IV PRN; +HYDR-2759 PO; -HYDROmorphone 2 MG/ML INJ. IVP PRN; -IV RINGERS,LACTATED 1000ML 1,000 ML IV SCH; -PROCHLORPERAZINE 10 MG/2 ML VIAL. IVP PRN; -fentaNYL PF VIAL 100 MCG/2 ML VIAL IVP PRN
--- NOTE | 2021-07-23 06:14 | PHYS DOC ---
Past Medical History Past Medical History: Asthma, Bronchitis, COPD, Diabetes-Type II, High Ch olesterol Additional Past Medical Histor: CHRONIC PAIN Past Surgical History: Other Additional Past Surgical Histo: ABD HERNIA, EYE SURGERY, CARPAL TUNNEL RELEASE: R Smoking Status: Former Smoker Alcohol Use: None Drug Use: None General Adult EDM: Chief Complaint: PAIN CONTROL HPI: HPI: Patient is a 61 year old [female presents to the ER with postoperative pain. Patient states that she had carpal tunnel release done few weeks ago. Patient was following up with her orthopedic doctor who had prescribed her hydrocodone tens but patient states that she did not receive the prescription over the weekend. Patient comes the ER for evaluation. No new changes in pain no numbness or tingling. No fevers or chills. Review of Systems: Review of Systems: Constitutional: Denies fever or chills. [] Eyes: Denies change in visual acuity. [] HENT: Denies nasal congestion or sore throat. [] Respiratory: Denies cough or shortness of breath. [] Cardiovascular: Denies chest pain or edema. [] GI: Denies abdominal pain, nausea, vomiting, bloody stools or diarrhea. [] : Denies dysuria. [] Musculoskeletal: RIght wrist pain. Denies back pain or joint pain. [] Integument: Denies rash. [] Neurologic: Denies headache, focal weakness or sensory changes. [] Endocrine: Denies polyuria or polydipsia. [] Lymphatic: Denies swollen glands. [] Psychiatric: Denies depression or anxiety. [] Heart Score: C/O Chest Pain: No Risk Factors: Risk Factors: DM, Current or recent (<one month) smoker, HTN, HLP, family history of CAD, obesity. Risk Scores: Score 0 - 3: 2.5% MACE over next 6 weeks - Discharge Home Score 4 - 6: 20.3% MACE over next 6 weeks - Admit for Clinical Observation Score 7 - 10: 72.7% MACE over next 6 weeks - Early Invasive Strategies Allergies: Allergies: Allergies Coded Allergies Type Severity Reaction Last Updated Verified Penicillins Allergy Intermediate Itching 06/13/21 Yes prednisone Adverse Reaction Mild "It upsets my stomach." 06/13/21 Yes Physical Exam: PE: Constitutional: Well developed, well nourished, no acute distress, non-toxic appearance. [] HENT: Normocephalic, atraumatic, bilateral external ears normal, oropharynx moist, no oral exudates, nose normal. [] Eyes: PERRLA, EOMI, conjunctiva normal, no discharge. [] Neck: Normal range of motion, no tenderness, supple, no stridor. [] Cardiovascular:Heart rate regular rhythm, no murmur [] Lungs & Thorax: Bilateral breath sounds clear to auscultation [] Abdomen: Bowel sounds normal, soft, no tenderness, no masses, no pulsatile masses. [] Skin: Incision c/d/i. Warm, dry, no erythema, no rash. [] Back: No tenderness, no CVA tenderness. [] Extremities: right wrist pain. No tenderness, no cyanosis, no clubbing, ROM intact, no edema. [] Neurologic: Alert and oriented X 3, normal motor function, normal sensory function, no focal deficits noted. [] Psychologic: Affect normal, judgement normal, mood normal. [] Current Patient Data: Vital Signs: Vital Signs Date Time Temp Pulse Resp B/P (MAP) Pulse Ox O2 Delivery O2 Flow Rate FiO2 07/23/21 05:57 98.1 67 18 152/84 (106) 97 Room Air 98.1 EKG: EKG: [] Radiology/Procedures: Radiology/Procedures: [] Course & Med Decision Making: Course & Med Decision Making Pertinent Labs and Imaging studies reviewed. (See chart for details) Discussed with patient's orthopedic surgeon who is aware of the patient. Patient does have more than typical opioid demand. Orthopedic doctor will follow-up in the outpatient setting and discuss pain plan Josue Disclaimer: Josue Disclaimer: This electronic medical record was generated, in whole or in part, using a voice recognition dictation system. Departure Departure Referrals: DYLAN BALBUENA JR, MD (PCP) THAD HO DO Jul 23, 2021 06:14
[2021-07-23 06:20] VITALS: BP 152/84
[2021-07-23] MEDS ORDERED: HYDR-2761 PO (06:25)
== END 2021-07-23 07:18 | disposition home or self-care (01) ==
LOC: ER 05:20
DX: G89.18 Other acute postprocedural pain (principal); J44.9 Chronic obstructive pulmonary disease, unspecified; E11.9 Type 2 diabetes mellitus without complications; E78.00 Pure hypercholesterolemia, unspecified; G89.29 Other chronic pain; Z87.891 Personal history of nicotine dependence; Z88.0 Allergy status to penicillin; Z88.5 Allergy status to narcotic agent
CPT/HCPCS: 99281